=== PATIENT | male | born 1950 | race African-American/Black ===

== ENCOUNTER 2017-12-04 12:04 | Emergency (ER) | payer OTHER ==
[~2017-12-04 12:04] MED LIST: ACET325T PO; ALBUAER3 INH; ASPI81TA23 PO; BLOOD PRESSURE1 M20; METO1TAB42 PO; PHEN125S PO; PRAV20TA2 PO
[2017-12-04 12:38] VITALS: BP 100/65; PULSE 92; RESP 18; O2SAT 98
--- NOTE | 2017-12-04 12:51 | PD ---
HPI Chief Complaint: Altered Mental Status Time Seen by Provider: 12:35 Travel History International Travel<30 days: No Contact w/Intl Traveler<30days: No Traveled to known affect area: No History of Present Illness HPI This patient was brought in by paramedics. I believe he was sent in for altered mental status. However he cannot provide any useful history or review of systems. He has no idea why he is here. Does not know who called the paramedics. He denies headache or head injury or fever. He does have history of alcohol abuse but no longer drinks. Severity is moderate. Denies hallucinations. No alleviating factors. No exacerbating factors. Duration is unclear as patient is useless with history. PFSH Past Medical History Medical History: Denies Significant Hx Diminished Hearing: No Immunizations Current: No (UNOTAINABLE ) Past Surgical History Surgical History: No Previous Surgery Social History Alcohol Use: Yes (OCCASIONAL, UNABLE TO OBTAIN ) Tobacco Use: Yes (OCCASIONAL, ) Substance Use: Yes (MARIJUANA) Allergies-Medications (Allergen,Severity, Reaction): Coded Allergies: procaine (Unverified Allergy, Intermediate, 06/06/17) penicillin G (Unverified Allergy, Unknown, 06/06/17) Reported Meds & Prescriptions Reported Meds & Active Scripts Active Metoprolol Succinate ER 24 HR (Metoprolol Succinate) 25 Mg Tab 25 Mg PO DAILY Pravastatin 20 Mg Tab 20 Mg PO DAILY Phenytoin Liq (Phenytoin) 125 Mg/5 Ml Asuncion 150 Mg PO Q8HR Aspirin EC (Aspirin) 81 Mg Tabdr 81 Mg PO DAILY Proair Hfa 8.5 GM Inh (Albuterol Sulfate) 90 Mcg/Act Aer 2 Puff INH Q4-6H PRN 108 mcg/actuation Review of Systems General / Constitutional: No: Fever Eyes: No: Visual changes HENT: No: Headaches Cardiovascular: No: Chest Pain or Discomfort Respiratory: No: Shortness of Breath Gastrointestinal: No: Abdominal Pain Genitourinary: No: Dysuria Musculoskeletal: No: Pain Skin: No Rash Neurologic: Positive: Change in Mentation, No: Weakness Psychiatric: No: Depression Endocrine: No: Polydipsia Hematologic/Lymphatic: No: Easy Bruising Physical Exam Narrative GENERAL: Thin well-developed patient in no apparent distress. SKIN: Focused skin assessment reveals no rash and nodules. Skin is Warm and dry. HEAD: Atraumatic. Normocephalic. EYES: Pupils equal and round. No scleral icterus. No injection or drainage. ENT: No nasal bleeding or discharge. Mucous membranes pink and moist. NECK: Trachea midline. No JVD. CARDIOVASCULAR: Regular rate and rhythm. No murmur appreciated. RESPIRATORY: No accessory muscle use. Clear to auscultation. Breath sounds equal bilaterally. GASTROINTESTINAL: Abdomen soft, non-tender, nondistended. Hepatic and splenic margins not palpable. MUSCULOSKELETAL: No obvious deformities. No clubbing. No cyanosis. No edema. NEUROLOGICAL: Awake and alert. No obvious cranial nerve deficits. Motor grossly within normal limits. Normal mumbling and difficult to understand speech. PSYCHIATRIC: Appropriate mood and affect; insight and judgment poor . Data Data Last Documented VS Vital Signs Date Time Temp Pulse Resp B/P (MAP) Pulse Ox O2 Delivery O2 Flow Rate FiO2 12/04/17 15:39 85 18 118/68 (85) 96 Room Air Orders Orders Ammonia (12/04/17 12:46) Complete Blood Count With Diff (12/04/17 12:46) Comprehensive Metabolic Panel (12/04/17 12:46) Thyroid Stimulating Hormone (12/04/17 12:46) Urinalysis - C+S If Indicated (12/04/17 12:46) Ct Brain W/O Iv Contrast(Rout) (12/04/17 12:46) Blood Glucose (12/04/17 12:46) Ecg Monitoring (12/04/17 12:46) Iv Access Insert/Monitor (12/04/17 12:46) Cath For Specimen (12/04/17 12:46) Oximetry (12/04/17 12:46) Sodium Chloride 0.9% Flush (Ns Flush) (12/04/17 13:00) Drug Screen, Random Urine (12/04/17 12:46) Alcohol (Ethanol) (12/04/17 12:46) Sodium Chlor 0.9% 1000 Ml Inj (Ns 1000 M (12/04/17 13:00) Labs Laboratory Tests Test 12/04/17 13:01 12/04/17 13:29 12/04/17 13:52 White Blood Count 13.6 TH/MM3 Red Blood Count 4.36 MIL/MM3 Hemoglobin 13.4 GM/DL Hematocrit 39.0 % Mean Corpuscular Volume 89.6 FL Mean Corpuscular Hemoglobin 30.9 PG Mean Corpuscular Hemoglobin Concent 34.4 % Red Cell Distribution Width 13.3 % Platelet Count 255 TH/MM3 Mean Platelet Volume 7.2 FL Neutrophils (%) (Auto) 85.5 % Lymphocytes (%) (Auto) 5.3 % Monocytes (%) (Auto) 9.0 % Eosinophils (%) (Auto) 0.0 % Basophils (%) (Auto) 0.2 % Neutrophils # (Auto) 11.7 TH/MM3 Lymphocytes # (Auto) 0.7 TH/MM3 Monocytes # (Auto) 1.2 TH/MM3 Eosinophils # (Auto) 0.0 TH/MM3 Basophils # (Auto) 0.0 TH/MM3 CBC Comment DIFF FINAL Differential Comment Blood Urea Nitrogen 36 MG/DL Creatinine 1.18 MG/DL Random Glucose 118 MG/DL Total Protein 8.5 GM/DL Albumin 2.6 GM/DL Calcium Level 9.0 MG/DL Alkaline Phosphatase 107 U/L Aspartate Amino Transf (AST/SGOT) 88 U/L Alanine Aminotransferase (ALT/SGPT) 34 U/L Total Bilirubin 1.9 MG/DL Sodium Level 141 MEQ/L Potassium Level 3.9 MEQ/L Chloride Level 107 MEQ/L Carbon Dioxide Level 23.5 MEQ/L Anion Gap 11 MEQ/L Estimat Glomerular Filtration Rate 75 ML/MIN Thyroid Stimulating Hormone 3rd Gen 1.440 uIU/ML Ethyl Alcohol Level LESS THAN 3 MG/DL Ammonia LESS THAN 10 MCMOL/L Urine Color YELLOW Urine Turbidity CLEAR Urine pH 5.5 Urine Specific [place] 1.022 Urine Protein 30 mg/dL Urine Glucose (UA) NEG mg/dL Urine Ketones NEG mg/dL Urine Occult Blood NEG Urine Nitrite NEG Urine Bilirubin SMALL Urine Urobilinogen 8.0 MG/DL Urine Leukocyte Esterase NEG Urine RBC 1 /hpf Urine WBC 3 /hpf Urine Squamous Epithelial Cells <1 /hpf Microscopic Urinalysis Comment CATH-CULT NOT IND Urine Opiates Screen NEG Urine Barbiturates Screen NEG Urine Amphetamines Screen NEG Urine Benzodiazepines Screen NEG Urine Cocaine Screen NEG Urine Cannabinoids Screen NEG MDM Medical Decision Making Medical Screen Exam Complete: Yes Emergency Medical Condition: Yes Medical Record Reviewed: Yes Differential Diagnosis Intracranial hemorrhage, dementia, electrolyte abnormality, hypoglycemia Narrative Course I have reviewed the patient's electronic medical record. He's been here for both seizure and alcohol related problems 1250: I evaluated the patient. Circumstances regarding his visit here are unclear. Paramedics left a fairly sketchy report I've ordered an altered mental status workup I don't see an acute neurologic deficit here to suggest CVA 1400: I reviewed the workup Brain CT is negative. Labs are normal. Urine is clean, ammonia is normal as is TSH Get better report. The nurse spoke with staff at the facility. It turns out he is in a prison type setting. He has chronic poor mental status. He was sent here not for mental status change but essentially because of generalized weakness and malaise. He had a temp of 100.7. He did go to an urgent care was diagnosed with rest for a infection and is currently on antibiotics. 1540: Recheck reveals the patient is basically asymptomatic. His mental status is altered but unchanged from baseline. Staff members present and is going to take him back to the facility. Diagnosis Primary Impression: Generalized weakness Additional Impressions: Malaise and fatigue Fever Qualified Codes: R50.9 - Fever, unspecified Additional Instructions: The patient was advised to follow up with their physician and return if they worsen. Med/Other Pt SpecificInfo: Other Disposition: 01 DISCHARGE HOME Condition: Stable Axel Weeks MD Dec 04, 2017 12:51
[2017-12-04] MEDS ORDERED: SODIUM CHLORIDE 0.9% FLUSH 10 ML FLUSH IV FLUSH PRN (13:00)
[2017-12-04] MEDS ORDERED: SODIUM CHLOR 0.9% 1000 ML INJ 1,000 ML IV ONE (13:00)
--- NOTE | 2017-12-04 13:23 | RADRPT ---
EXAM DATE/TIME: 12/04/2017 13:09 [facility] COMPARISON: CT BRAIN W/O CONTRAST, August 12, 2016, 18:58. INDICATIONS : Weakness RADIATION DOSE: 38.64 CTDIvol (mGy) MEDICAL HISTORY : Seizures. Hypertension. Chronic obstructive pulmonary disease. SURGICAL HISTORY : None. ENCOUNTER: Initial ACUITY: 3 days PAIN SCALE: 0/10 LOCATION: cranial TECHNIQUE: Multiple contiguous axial images were obtained of the head. Using automated exposure control and adj ustment of the mA and/or kV according to patient size, radiation dose was kept as low as reasonably a chievable to obtain optimal diagnostic quality images. DICOM format image data is available electro nically for review and comparison. FINDINGS: CEREBRUM: The ventricles are normal for age. No evidence of midline shift, mass lesion, hemorrhage or acute in farction. No extra-axial fluid collections are seen. POSTERIOR FOSSA: The cerebellum and brainstem are intact. The 4th ventricle is midline. The cerebellopontine angle i s unremarkable. EXTRACRANIAL: The visualized portion of the orbits is intact. SKULL: The calvaria is intact. No evidence of skull fracture. CONCLUSION: 1. No acute intracranial abnormality. Carlos Beltrán MD on December 04, 2017 at 13:19 Board Certified Radiologist. This report was verified electronically.
[2017-12-04 13:30] LABS: AUTOMATED NEUTROPHIL # 11.7 TH/MM3 (1.8-7.7); BASOPHIL % 0.2 % (0.0-2.0); HEMOGLOBIN 13.4 GM/DL (13.0-17.0); LYMPH % 5.3 % (9.0-44.0); LYMPHOCYTE # 0.7 TH/MM3 (1.0-4.8); MEAN CELL VOLUME 89.6 FL (80.0-100.0); MEAN CORPUSCULAR HEMOGLOBIN 30.9 PG (27.0-34.0); MEAN CORPUSCULAR HGB CONC 34.4 % (32.0-36.0); MEAN PLATELET VOLUME 7.2 FL (7.0-11.0); MONOCYTE # 1.2 TH/MM3 (0-0.9); NEUT % 85.5 % (16.0-70.0); PLATELET COUNT 255 TH/MM3 (150-450); RED BLOOD COUNT 4.36 MIL/MM3 (4.50-5.90); RED CELL DISTRIBUTION WIDTH 13.3 % (11.6-17.2); WHITE BLOOD COUNT 13.6 TH/MM3 (4.0-11.0)
[2017-12-04 13:57] LABS: ALKALINE PHOSPHATASE 107 U/L (45-117); ALT (GPT) 34 U/L (12-78); TOTAL BILIRUBIN ADULT 1.9 MG/DL (0.2-1.0); TOTAL PROTEIN 8.5 GM/DL (6.4-8.2)
[2017-12-04 14:00] LABS: ALBUMIN 2.6 GM/DL (3.4-5.0); AST (GOT) 88 U/L (15-37); BICARBONATE 23.5 MEQ/L (21.0-32.0); BLOOD UREA NITROGEN 36 MG/DL (7-18); CHLORIDE 107 MEQ/L (98-107); CREATININE 1.18 MG/DL (0.60-1.30); GLOMERULAR FILTRATION RATE 75 ML/MIN (>89); GLUCOSE,RANDOM 118 MG/DL (74-106); SODIUM (NA) 141 MEQ/L (136-145)
[2017-12-04 14:24] LABS: BILIRUBIN, URINE SMALL (NEG); BLOOD, URINE NEG (NEG); GLUCOSE,URINE NEG (NEG); KETONE, URINE NEG (NEG); NITRITE,URINE NEG (NEG); PH, URINE 5.5 (5.0-8.5); SQUAMOUS EPITHELIAL CELL URINE <1 /hpf (0-5); URINE COLOR YELLOW (YELLW/STRAW); URINE LEUKOCYTE ESTERASE NEG (NEG)
[2017-12-04 15:39] VITALS: BP 118/68; PULSE 85; RESP 18; O2SAT 96
== END 2017-12-04 16:29 | disposition home or self-care (01) ==
LOC: NEPC 12:04
DX: R53.1 Weakness (principal); R53.83 Other fatigue; R50.9 Fever, unspecified; F12.90 Cannabis use, unspecified, uncomplicated; Z79.899 Other long term (current) drug therapy; Z72.0 Tobacco use
CPT/HCPCS: 70450; 80053; 80307; 81001; 82140; 84443; 85025; 99284; J7030

== ENCOUNTER 2017-12-10 14:36 | Inpatient (IN) | payer OTHER ==
[2017-12-10] VITALS (7 sets, daily range): BP systolic 107–122; BP diastolic 67–71; PULSE 86–104; RESP 18–22; TEMP 97.8–98.1; O2SAT 93–98
[~2017-12-10] VITALS: Ht 180.3 cm; Wt 63.3 kg
[~2017-12-10 14:36] MED LIST changes: -ACET325T PO; -BLOOD PRESSURE1 M20
[2017-12-10] MEDS: RESP: ALBUTEROL 2.5 MG/IPRATROPIUM 0.5 MG NEB (SCH) INH (15:14)
--- NOTE | 2017-12-10 15:55 | RADRPT ---
EXAM DATE/TIME: 12/10/2017 15:43 [facility] COMPARISON: No previous studies available for comparison. INDICATIONS : Shortness of breath, general weakness. MEDICAL HISTORY : Hypertension. Chronic obstructive pulmonary disease. Seizures SURGICAL HISTORY : None. ENCOUNTER: Initial ACUITY: 1 day PAIN SCORE: 0/10 LOCATION: Bilateral chest FINDINGS: PA and lateral views of the chest demonstrate bilateral infiltrates in a perihilar distribution. Ther e is a large bleb in the right lung apex as well as a triangular pleural based density. Lung bases ar e clear. No visible pneumothorax.. The cardiomediastinal contours are unremarkable. Marked sclerosis of the subchondral bone left humeral head likely infarct. CONCLUSION: Bilateral perihilar infiltrates and a wedge-shaped density in the right lung apex. Large bleb right u pper lobe. Amilcar Delgado MD on December 10, 2017 at 15:52 Board Certified Radiologist. This report was verified electronically.
[2017-12-10 15:57] LABS: AUTOMATED NEUTROPHIL # 19.6 TH/MM3 (1.8-7.7); BASOPHIL % 0.1 % (0.0-2.0); HEMATOCRIT 46.3 % (39.0-51.0); HEMOGLOBIN 15.6 GM/DL (13.0-17.0); LYMPHOCYTE # 0.6 TH/MM3 (1.0-4.8); MEAN CORPUSCULAR HGB CONC 33.7 % (32.0-36.0); MEAN PLATELET VOLUME 8.1 FL (7.0-11.0); MONO % 2.5 % (0.0-8.0); MONOCYTE # 0.5 TH/MM3 (0-0.9); NEUT % 94.4 % (16.0-70.0); PLATELET COUNT 190 TH/MM3 (150-450); WHITE BLOOD COUNT 20.8 TH/MM3 (4.0-11.0)
[2017-12-10 16:21] LABS: ALKALINE PHOSPHATASE 108 U/L (45-117); TOTAL BILIRUBIN ADULT 1.1 MG/DL (0.2-1.0); TOTAL PROTEIN 7.5 GM/DL (6.4-8.2)
[2017-12-10 16:22] LABS: ALBUMIN 1.8 GM/DL (3.4-5.0); ALT (GPT) 15 U/L (12-78); AST (GOT) 53 U/L (15-37); BICARBONATE 24.5 MEQ/L (21.0-32.0); BLOOD UREA NITROGEN 40 MG/DL (7-18); CALCIUM 8.5 MG/DL (8.5-10.1); CHLORIDE 115 MEQ/L (98-107); CREATININE 1.18 MG/DL (0.60-1.30); GLOMERULAR FILTRATION RATE 75 ML/MIN (>89); GLUCOSE,RANDOM 109 MG/DL (74-106); SODIUM (NA) 151 MEQ/L (136-145)
[2017-12-10 16:44] LABS: BANDS 15 % (0-6); LYMPHOCYTES 5 % (9-44); MONOCYTES 1 % (0-8); NEUTROPHIL # MANUAL DIFF 19.6 TH/MM3 (1.8-7.7); POLYS (SEG NEUTROPHILS) 79 % (16-70)
[2017-12-10] MEDS ORDERED: SODIUM CHLOR 0.9% 1000 ML INJ 1,000 ML IV ONE (16:45)
[2017-12-10] MEDS ORDERED: SODIUM CHLORIDE 0.9% FLUSH 10 ML FLUSH IV FLUSH PRN (17:15)
[2017-12-10] MEDS ORDERED: NALOXONE HCL 0.4 MG/ML AMP IV PUSH PRN (17:15)
[2017-12-10] MEDS ORDERED: ONDANSETRON HCL 4 MG/2 ML VIAL IVP PRN (17:15)
[2017-12-10] MEDS ORDERED: LACTULOSE SYRUP 20 GM/30 ML CUP PO PRN (17:15)
[2017-12-10] MEDS ORDERED: SENNOSIDES 8.6 MG TAB PO PRN (17:15)
[2017-12-10] MEDS ORDERED: BISACODYL 10 MG SUPP RECTAL PRN (17:15)
[2017-12-10] MEDS ORDERED: ACETAMINOPHEN 325 MG TAB PO PRN (17:15)
--- NOTE | 2017-12-10 17:23 | PD ---
HPI Chief Complaint: Respiratory Symptoms Time Seen by Provider: 14:51 Travel History International Travel<30 days: No Contact w/Intl Traveler<30days: No Traveled to known affect area: No History of Present Illness HPI 67-year-old male that presents to the ED for evaluation of respiratory symptoms. Per patient his been having cold-like symptoms for the past 2 weeks. Most of the history is obtained from ambulance as well as family as patient himself is not a good historian. Patient denies any urinary or bowel movement issues. Per family he's not been eating because he is having pain with swallowing. His been taking his medications and was recently seen in this hospital and diagnosed with pneumonia and started on doxycycline. Per patient does continue taking antibiotic. He was given some Solu-Medrol as well as albuterol by ambulance with some improvement of his O2 sats. Patient was having low O2 sats per ambulance today. His usually been okay. He has an inhaler at home. History of COPD. Denies any urinary or bowel movement issues. No chest pain or shortness of breath. Having a lot of productive cough. No history of HIV or immunosuppression but does have a history of hepatitis C. Allergy to penicillin and procaine PFSH Past Medical History COPD: Yes Diminished Hearing: No Immunizations Current: No (UNOTAINABLE ) ?: Not Social History Alcohol Use: Yes (OCCASIONAL, UNABLE TO OBTAIN ) Tobacco Use: Yes (OCCASIONAL, ) Substance Use: No Allergies-Medications (Allergen,Severity, Reaction): Coded Allergies: procaine (Unverified Allergy, Intermediate, 12/10/17) penicillin G (Unverified Allergy, Unknown, 12/10/17) Reported Meds & Prescriptions Reported Meds & Active Scripts Active Metoprolol Succinate ER 24 HR (Metoprolol Succinate) 25 Mg Tab 25 Mg PO DAILY Pravastatin 20 Mg Tab 20 Mg PO DAILY Phenytoin Liq (Phenytoin) 125 Mg/5 Ml Asuncion 150 Mg PO Q8HR Aspirin EC (Aspirin) 81 Mg Tabdr 81 Mg PO DAILY Proair Hfa 8.5 GM Inh (Albuterol Sulfate) 90 Mcg/Act Aer 2 Puff INH Q4-6H PRN 108 mcg/actuation Review of Systems Except as stated in HPI: all other systems reviewed are Neg Physical Exam Narrative GENERAL: SKIN: Warm and dry. HEAD: Atraumatic. Normocephalic. EYES: Pupils equal and round. No scleral icterus. No injection or drainage. ENT: No nasal bleeding or discharge. Mucous membranes pink and moist. Tongue is midline. No uvula deviation. Patient has what appears to be white exudates to the mouth and the tongue. They are removable. NECK: Trachea midline. No JVD. CARDIOVASCULAR: Regular rate and rhythm. No murmurs, S3, S4. RESPIRATORY: No accessory muscle use. Clear to auscultation. Breath sounds equal bilaterally. GASTROINTESTINAL: Abdomen soft, non-tender, nondistended. Hepatic and splenic margins not palpable. MUSCULOSKELETAL: Extremities without clubbing, cyanosis, or edema. No obvious deformities. Full range of motion of the upper and lower extremities bilaterally. 2+ pulses bilaterally. NEUROLOGICAL: Awake and alert. No obvious cranial nerve deficits. Motor grossly within normal limits. Five out of 5 muscle strength in the arms and legs. Normal speech. PSYCHIATRIC: Appropriate mood and affect; insight and judgment normal. Data Data Last Documented VS Vital Signs Date Time Temp Pulse Resp B/P (MAP) Pulse Ox O2 Delivery O2 Flow Rate FiO2 12/10/17 15:06 98.1 104 107/67 (80) 94 Room Air 12/10/17 15:03 22 Orders Orders Electrocardiogram (12/10/17 15:00) Arterial Blood Gas (Abg) (12/10/17 15:00) Complete Blood Count With Diff (12/10/17 15:00) Comprehensive Metabolic Panel (12/10/17 15:00) Chest, Pa & Lat (12/10/17 15:00) Ecg Monitoring (12/10/17 15:00) Iv Access Insert/Monitor (12/10/17 15:00) Oximetry (12/10/17 15:00) Oxygen Administration (12/10/17 15:00) Albuterol-Ipratropium Neb (Duoneb Neb) (12/10/17 15:00) Blood Culture (12/10/17 15:00) Ct Soft Tiss Neck W Iv Cont (12/10/17 ) Sodium Chlor 0.9% 1000 Ml Inj (Ns 1000 M (12/10/17 16:45) Admit Order (Ed Use Only) (12/10/17 17:12) Labs Laboratory Tests Test 12/10/17 13:30 12/10/17 15:10 White Blood Count 20.8 TH/MM3 Red Blood Count 5.20 MIL/MM3 Hemoglobin 15.6 GM/DL Hematocrit 46.3 % Mean Corpuscular Volume 89.0 FL Mean Corpuscular Hemoglobin 30.0 PG Mean Corpuscular Hemoglobin Concent 33.7 % Red Cell Distribution Width 14.0 % Platelet Count 190 TH/MM3 Mean Platelet Volume 8.1 FL Neutrophils (%) (Auto) 94.4 % Lymphocytes (%) (Auto) 3.0 % Monocytes (%) (Auto) 2.5 % Eosinophils (%) (Auto) 0.0 % Basophils (%) (Auto) 0.1 % Neutrophils # (Auto) 19.6 TH/MM3 Lymphocytes # (Auto) 0.6 TH/MM3 Monocytes # (Auto) 0.5 TH/MM3 Eosinophils # (Auto) 0.0 TH/MM3 Basophils # (Auto) 0.0 TH/MM3 CBC Comment AUTO DIFF Differential Total Cells Counted 100 Neutrophils % (Manual) 79 % Band Neutrophils % 15 % Lymphocytes % 5 % Monocytes % 1 % Neutrophils # (Manual) 19.6 TH/MM3 Differential Comment FINAL DIFF MANUAL Platelet Estimate NORMAL Platelet Morphology Comment NORMAL Red Cell Morphology Comment NORMAL Blood Urea Nitrogen 40 MG/DL Creatinine 1.18 MG/DL Random Glucose 109 MG/DL Total Protein 7.5 GM/DL Albumin 1.8 GM/DL Calcium Level 8.5 MG/DL Alkaline Phosphatase 108 U/L Aspartate Amino Transf (AST/SGOT) 53 U/L Alanine Aminotransferase (ALT/SGPT) 15 U/L Total Bilirubin 1.1 MG/DL Sodium Level 151 MEQ/L Potassium Level 4.2 MEQ/L Chloride Level 115 MEQ/L Carbon Dioxide Level 24.5 MEQ/L Anion Gap 12 MEQ/L Estimat Glomerular Filtration Rate 75 ML/MIN Blood Gas Puncture Site RT RADIAL Blood Gas Patient Temperature 98.6 Blood Gas HCO3 22 mmol/L Blood Gas Base Excess -1.2 mmol/L Blood Gas Oxygen Saturation 94 % Arterial Blood pH 7.47 Arterial Blood Partial Pressure CO2 30 mmHg Arterial Blood Partial Pressure O2 74 mmHG Arterial Blood Oxygen Content 20.4 Vol % Arterial Blood Carboxyhemoglobin 0.8 % Arterial Blood Methemoglobin 0.6 % Blood Gas Hemoglobin 15.5 G/DL Oxygen Delivery Device ROOM AIR Blood Gas Inspired Oxygen 21 % MDM Medical Decision Making Medical Screen Exam Complete: Yes Emergency Medical Condition: Yes Medical Record Reviewed: Yes Interpretation(s) CBC & BMP Diagram 12/10/17 13:30 Total Protein 7.5 #, Albumin 1.8 L, Calcium Level 8.5, Alkaline Phosphatase 108 , Aspartate Amino Transf (AST/SGOT) 53 H, Alanine Aminotransferase (ALT/SGPT) 15 , Total Bilirubin 1.1 H Last Impressions Chest X-Ray 12/10/17 1500 Signed Impressions: Service Date/Time: Sunday, December 10, 2017 15:43 - CONCLUSION: Bilateral perihilar infiltrates and a wedge-shaped density in the right lung apex. Large bleb right upper lobe. Amilcar Delgado MD Differential Diagnosis COPD exacerbation versus depression versus pneumonia versus failed out patient treatment Narrative Course 67-year-old male that presents to the ED for evaluation of cold-like symptoms and shortness of breath. Patient was properly examined and was found to have signs and symptoms consistent appears to be severe exacerbation with pneumonia. Fell outpatient treatment. Patient also appears to have what appears to be Trush in his mouth. He does have some swelling of the neck but this may be chronic for him. We'll do CT to rule out any sign of acute disease. Labs and imaging were ordered. Labs and imaging were consistent with pneumonia and infection. At this time accommodations for admission for further eval. Patient apparently agree with this. Case was discussed with Linette for hepatitis who agrees to admission to Dr. Gonzalez. Diagnosis Primary Impression: Pneumonia Qualified Codes: J18.9 - Pneumonia, unspecified organism Additional Impression: COPD (chronic obstructive pulmonary disease) Qualified Codes: J44.9 - Chronic obstructive pulmonary disease, unspecified Admitting Information Admitting Physician Requests: Admit Dayton Snider Dec 10, 2017 17:23
[2017-12-10] MEDS ORDERED: ENOXAPARIN SODIUM 30 MG/0.3 ML SYRINGE SQ SCH (18:00)
[2017-12-10] MEDS ORDERED: LEVOFLOXACIN 750 MG PREMIX INJ 150 ML IV SCH (18:00)
[2017-12-10] MEDS ORDERED: IOHEXOL 350 MG/ML 10 ML VIAL (for RAD DIAG) IVCONTRAST ONE (18:12)
[2017-12-10] MEDS ORDERED: Vancomycin Consult Pharmacy 1 EA OTHER SCH (18:15)
--- NOTE | 2017-12-10 18:42 | RADRPT ---
EXAM DATE/TIME: 12/10/2017 18:08 [facility] COMPARISON: No previous studies available for comparison. INDICATIONS : Neck pain and dysphasia. IV CONTRAST: 72 cc Omnipaque 350 (iohexol) IV RADIATION DOSE: 21.72 CTDIvol (mGy) MEDICAL HISTORY : Hypertension. Seizures. SURGICAL HISTORY : None. ENCOUNTER: Initial ACUITY: 1 day PAIN SCALE: 6/10 LOCATION: neck TECHNIQUE: Volumetric scanning of the neck was performed. Using automated exposure control and adjustment of th e mA and/or kV according to patient size, radiation dose was kept as low as reasonably achievable to obtain optimal diagnostic quality images. DICOM format image data is available electronically for r eview and comparison. FINDINGS: NASOPHARYNX: The nasopharyngeal airway has a normal configuration. No mucosal thickening or mass is seen. OROPHARYNX: The intrinsic muscles of the tongue are symmetric. The tonsillar pillars are intact. The prevertebr al soft tissues are not thickened. LARYNX: The supraglottic, glottic, and infraglottic structures are intact. PARAPHARYNGEAL: The parapharyngeal space is intact. SALIVARY GLANDS: The parotid and submandibular glands are intact. LYMPH NODES: No enlarged or necrotic-appearing nodes. THYROID: Homogeneous enhancement without evidence of nodule. BONES: There is a destructive lesion involving the first rib. There is a large cavitary area in the right arpita ng apex. Small lytic lesion left anterior half of L3 could be an additional metastatic lesion CONCLUSION: Destructive lesion of the right first rib with an adjacent large cavity in the right lung apex. Ques tionable lytic lesion in T3 on the left Amilcar Delgado MD on December 10, 2017 at 18:36 Board Certified Radiologist. This report was verified electronically.
--- NOTE | 2017-12-10 18:56 | HHI.HP ---
HPI Service [facility] Hospitalists Primary Care Physician [facility] Admission Diagnosis pneumonia, failed outpatient treatment, COPD Diagnoses: Chief Complaint: Progressive weakness Generalized malasie Facial droop Dysphagia Travel History International Travel<30 Days: No Contact w/Intl Traveler <30 Da: No Traveled to Known Affected Are: No Sepsis Criteria SIRS Criteria (2 or more): Heart rate over 90, RR > 20 or PaCO2 < 32, WBC > 18515, < 4000 or > 10% bands Sepsis Criteria (SIRS+source): Infect source susp/known Criteria Outcome: Meets sepsis criteria History of Present Illness This is a 67-year-old male with a past medical history significant for COPD with ongoing tobaccoism, history of alcohol abuse with acute respiratory failure requiring intubation, history of alcohol withdrawal seizures, hypertension and dyslipidemia who presents to [facility] ED with complaints of progressive weakness, left-sided facial droop, difficulty swallowing and generalized malaise. Patient is a poor historian as well as has significant slurred speech. Due to patient's difficulty speaking, his caregivers are at the bedside and assist in providing much of the history. Apparently, patient developed complaints of fevers, generalized malaise and not feeling well. He was seen at urgent care and diagnosed with pneumonia given a prescription for doxycycline. Despite being compliant with medication patient continued to decline with progressive weakness. He was sent by [facility] to our ED on the for altered mental status and had a CT of the head done which was negative for any acute intracranial abnormality and was discharged the same day. Patient was then seen by his primary care physician Dr. King and was given a steroid injection. Patient developed left-sided facial droop on Monday and began having difficulty swallowing with increased slurred speech over the course of the past 3 days. Patient denies any cough during this time. He denies any hemoptysis. Denies any shortness of breath or chest pain. He denies any vision changes, dizziness, lightheadedness, nausea, vomiting, focal weakness, abdominal pain, dysuria, hematuria, diarrhea or constipation. He does endorse recent weight loss. He has not taken any medication for the past 3 days due to difficulty swallowing. Review of Systems Except as stated in HPI: all other systems reviewed are Neg Past Family Social History Past Medical History COPD with ongoing tobacco use History of left lacunar basal ganglia infarct History of acute respiratory distress requiring intubation History of alcohol withdrawal seizures Hepatitis C Hypertension Dyslipidemia Past Surgical History Previous tracheostomy and PEG tube placement Reported Medications Metoprolol Succinate ER 24 HR (Metoprolol Succinate) 25 Mg Tab 25 Mg PO DAILY Pravastatin 20 Mg Tab 20 Mg PO DAILY Phenytoin Liq (Phenytoin) 125 Mg/5 Ml Asuncion 150 Mg PO Q8HR Aspirin EC (Aspirin) 81 Mg Tabdr 81 Mg PO DAILY Proair Hfa 8.5 GM Inh (Albuterol Sulfate) 90 Mcg/Act Aer 2 Puff INH Q4-6H PRN 108 mcg/actuation Allergies: Coded Allergies: procaine (Unverified Allergy, Intermediate, 12/10/17) penicillin G (Unverified Allergy, Unknown, 12/10/17) Active Ordered Medications Current Medications Medications (Trade) Dose Ordered Sig/Bridget Route Start Time Stop Time Status Last Admin (NS Flush) 2 ml UNSCH PRN IV FLUSH 12/10/17 17:15 (NS Flush) 2 ml BID IV FLUSH 12/10/17 21:00 (Tylenol) 650 mg Q4H PRN PO 12/10/17 17:15 (Zofran Inj) 4 mg Q6H PRN IVP 12/10/17 17:15 (Lovenox Inj) 30 mg Q24H SQ 12/10/17 18:00 (Narcan Inj) 0.4 mg UNSCH PRN IV PUSH 12/10/17 17:15 (Babs-Colace) 1 tab BID PO 12/10/17 21:00 (Senokot) 17.2 mg Q12H PRN PO 12/10/17 17:15 (Dulcolax Supp) 10 mg DAILY PRN RECTAL 12/10/17 17:15 (Lactulose Liq) 30 ml DAILY PRN PO 12/10/17 17:15 Sodium Chloride 1,000 ml @ 100 mls/hr Q10H IV 12/10/17 18:00 (Lactinex) 1 tab TID PO 12/10/17 18:00 (Mucinex Er) 600 mg BID PO 12/10/17 21:00 (Duoneb Neb) 1 ampule Q4HR NEB NEB 12/10/17 20:00 (Albuterol Neb) 2.5 mg Q2HR NEB PRN NEB 12/10/17 17:15 Levofloxacin/ Dextrose 150 ml @ 100 mls/hr Q24H IV 12/10/17 18:00 Family History Patient unsure of family medical history Social History He admits to tobacco use of 3 Black & Mild cigars daily. He has a history of alcohol abuse but has not drank in over 2 years. Denies any illicit drug use. Physical Exam Vital Signs Vital Signs Date Time Temp Pulse Resp B/P (MAP) Pulse Ox O2 Delivery O2 Flow Rate FiO2 12/10/17 15:06 98.1 104 107/67 (80) 94 Room Air 12/10/17 15:03 98.1 104 22 107/67 (80) 95 Physical Exam GENERAL: This is a thin, frail rather cachectic appearing -Mal[place]ian male patient, in no apparent distress. Awake and alert. Left sided facial droop noted. Slurred speech. SKIN: No rashes, ecchymoses or lesions. Cool and dry. HEAD: Atraumatic. Normocephalic. No temporal or scalp tenderness. EYES: Pupils equal round and reactive. Extraocular motions intact. No scleral icterus. No injection or drainage. ENT: Nose without bleeding or purulent drainage. (+)Oral thrush. Airway patent. (+)Copious amount of oral secretions. NECK: Trachea midline. No JVD or lymphadenopathy. Supple, nontender, no meningeal signs. CARDIOVASCULAR: Tachycardic without murmurs, gallops, or rubs. RESPIRATORY: Fair air entry. Crackles noted right base. GASTROINTESTINAL: Abdomen soft, non-tender, nondistended. No hepato-splenomegaly , or palpable masses. No guarding. MUSCULOSKELETAL: Extremities without clubbing, cyanosis, or edema. No joint tenderness, effusion, or edema noted. No calf tenderness. NEUROLOGICAL: Awake and alert. Cranial nerves II through XII grossly intact. Motor and sensory grossly within normal limits with slightly weakened mold capper helper strength bilaterally. Slurred speech. Laboratory Laboratory Tests Test 12/10/17 13:30 12/10/17 15:10 White Blood Count 20.8 Red Blood Count 5.20 Hemoglobin 15.6 Hematocrit 46.3 Mean Corpuscular Volume 89.0 Mean Corpuscular Hemoglobin 30.0 Mean Corpuscular Hemoglobin Concent 33.7 Red Cell Distribution Width 14.0 Platelet Count 190 Mean Platelet Volume 8.1 Neutrophils (%) (Auto) 94.4 Lymphocytes (%) (Auto) 3.0 Monocytes (%) (Auto) 2.5 Eosinophils (%) (Auto) 0.0 Basophils (%) (Auto) 0.1 Neutrophils # (Auto) 19.6 Lymphocytes # (Auto) 0.6 Monocytes # (Auto) 0.5 Eosinophils # (Auto) 0.0 Basophils # (Auto) 0.0 CBC Comment AUTO DIFF Differential Total Cells Counted 100 Neutrophils % (Manual) 79 Band Neutrophils % 15 Lymphocytes % 5 Monocytes % 1 Neutrophils # (Manual) 19.6 Differential Comment FINAL DIFF MANUAL Platelet Estimate NORMAL Platelet Morphology Comment NORMAL Red Cell Morphology Comment NORMAL Blood Urea Nitrogen 40 Creatinine 1.18 Random Glucose 109 Total Protein 7.5 Albumin 1.8 Calcium Level 8.5 Alkaline Phosphatase 108 Aspartate Amino Transf (AST/SGOT) 53 Alanine Aminotransferase (ALT/SGPT) 15 Total Bilirubin 1.1 Sodium Level 151 Potassium Level 4.2 Chloride Level 115 Carbon Dioxide Level 24.5 Anion Gap 12 Estimat Glomerular Filtration Rate 75 Blood Gas Puncture Site RT RADIAL Blood Gas Patient Temperature 98.6 Blood Gas HCO3 22 Blood Gas Base Excess -1.2 Blood Gas Oxygen Saturation 94 Arterial Blood pH 7.47 Arterial Blood Partial Pressure CO2 30 Arterial Blood Partial Pressure O2 74 Arterial Blood Oxygen Content 20.4 Arterial Blood Carboxyhemoglobin 0.8 Arterial Blood Methemoglobin 0.6 Blood Gas Hemoglobin 15.5 Oxygen Delivery Device ROOM AIR Blood Gas Inspired Oxygen 21 Date/Time Source Procedure Growth Status 12/10/17 13:30 Blood Peripheral Aerobic Blood Culture Pending Received 12/10/17 13:30 Blood Peripheral Anaerobic Blood Culture Pending Received Result Diagram: 12/10/17 1330 12/10/17 1330 Imaging Last Impressions Chest X-Ray 12/10/17 1500 Signed Impressions: Service Date/Time: Sunday, December 10, 2017 15:43 - CONCLUSION: Bilateral perihilar infiltrates and a wedge-shaped density in the right lung apex. Large bleb right upper lobe. MD Kati Bernabe VTE Risk Assessment Caprini VTE Risk Assessment: Mod/High Risk (score >= 2) Caprini Risk Assessment Model Point Value = 1 Point Value = 2 Point Value = 3 Point Value = 5 Age 41-60 Minor surgery BMI > 25 kg/m2 Swollen legs Varicose veins or History of unexplained or recurrent spontaneous Oral contraceptives or hormone replacement Sepsis (< 1 month) Serious lung disease, including pneumonia (< 1 month) Abnormal pulmonary function Acute myocardial infarction Congestive heart failure (< 1 month) History of inflammatory bowel disease Medical patient at bed rest Age 61-74 Arthroscopic surgery Major open surgery (> 45 min) Laparoscopic surgery (> 45 min) Malignancy Confined to bed (> 72 hours) Immobilizing plaster cast Central venous access Age >= 75 History of VTE Family history of VTE Factor V Leiden Prothrombin [id number] Lupus anticoagulant Anticardiolipin antibodies Elevated serum homocysteine Heparin-induced thrombocytopenia Other congenital or acquired thrombophilia Stroke (< 1 month) Elective arthroplasty Hip, pelvis, or leg fracture Acute spinal cord injury (< 1 month) Prophylaxis Regimen Total Risk Factor Score Risk Level Prophylaxis Regimen 0-1 Low Early ambulation 2 Moderate Order ONE of the following: *Sequential Compression Device (SCD) *Heparin 5000 units SQ BID 3-4 Higher Order ONE of the following medications: *Heparin 5000 units SQ TID *Enoxaparin/Lovenox 40 mg SQ daily (WT < 150 kg, CrCl > 30 mL/min) *Enoxaparin/Lovenox 30 mg SQ daily (WT < 150 kg, CrCl > 10-29 mL/min) *Enoxaparin/Lovenox 30 mg SQ BID (WT < 150 kg, CrCl > 30 mL/min) AND/OR *Sequential Compression Device (SCD) 5 or more Highest Order ONE of the following medications: *Heparin 5000 units SQ TID (Preferred with Epidurals) *Enoxaparin/Lovenox 40 mg SQ daily (WT < 150 kg, CrCl > 30 mL/min) *Enoxaparin/Lovenox 30 mg SQ daily (WT < 150 kg, CrCl > 10-29 mL/min) *Enoxaparin/Lovenox 30 mg SQ BID (WT < 150 kg, CrCl > 30 mL/min) AND *Sequential Compression Device (SCD) Assessment and Plan Assessment and Plan 67-year-old male with a past medical history significant for COPD with ongoing tobaccoism, history of alcohol abuse with acute respiratory failure requiring intubation, history of alcohol withdrawal seizures, hypertension and dyslipidemia who presents to [facility] ED with complaints of progressive weakness, left-sided facial droop, difficulty swallowing and generalized malaise. Sepsis with elevated white count of 20.8, RR 22, tachycardia with HR 104 and source of pneumonia, failed outpatient treatment -obtain lactic acid sepsis protocol -IVF -Monitor white count -Begin IV vancomycin and Flagyl due to concern for possible aspiration pneumonia -Continuous cardiac monitoring -Follow-up on blood culture results Pneumonia, failed outpatient treatment Hx of acute respiratory failure requiring intubation s/p tracheostomy History of alcohol abuse, sober for over 2 years Concern for aspiration pneumonia COPD with ongoing tobaccoism -Chest x-ray shows bilateral perihilar infiltrates and a wedge-shaped density in the right lung apex. Large bleb right upper lobe, images reviewed by me -Consult pulmonology, appreciate assistance -IV vancomycin and Flagyl -Scheduled DuoNebs -obtain sputum culture -Acapella and incentive spirometry -Supplemental oxygen to maintain O2 sats above 92%. Continue to monitor respiratory status -Discussed importance of smoking cessation Left sided facial droop, slurred speech, dysphagia Possible subacute CVA History of previous left lacunar basal ganglia infarct -Head CT obtained 12/04/2017 shows no acute intracranial abnormality, images reviewed by me -CT neck ordered by ED, pending -obtain MRI brain. Will hold off beginning ASA until MRI results and no bleed confirmed. -statin daily -Consult neurology, appreciate assistance -N.p.o. for now. Nursing bedside swallow evaluation followed by speech therapy swallow evaluation -Obtain 2D echocardiogram and carotid ultrasound study -Consult PT/OT/ST -fall and seizure precautions Nonobstructive coronary artery disease Hypertension -Hypotensive at present -Hold any home antihypertensives that may be on medication reconciliation once updated -Monitor BP and adjust treatment accordingly Hypernatremia Elevated BUN -secondary to dehydration/volume contractions -IVF with NS -monitor sodium level, repeat BMP in am Oral candidiasis -Nystatin s/s pending bedside swallow evaluation Hepatitis C, treatment hina -Mild transaminitis -Monitor LFTs -Avoid hepatotoxic agents DVT prophylaxisDVT prophylaxis -Lovenox Attestation Patient seen and examined with MARITZA Barillas. The exam, history, and the medical decision-making described in the above note were completed with the assistance of the dictating practitioner. I attest that I had a [id number] encounter with the patient on the same day, and personally performed all of the history, exam, or medical decision making. Discussed case with him thoroughly after seeing the patient, reviewed and agreed with the plan. Please see addendum in History, Physical examination and Plan. See below for any errata/ additional input: NEUROLOGICAL: Alert, awake and oriented x3. Remote, recent, immediate memory intact. Concentration, judgment and higher function WNL. No cranial deficits: Pupils equal round reactive to light and accommodation, no facial asymmetry, shoulder shrug strong and symmetric, gross hearing intact, tongue midline. Moves all 4 extremities, muscle strength testing 5 over 5 all 4 extremities. Pronator drift negative, digiti quinti minimi sign negative. No sensory deficits with touch sensation. Grossly negative cerebellar examination, negative for dysdiadochokinesia. Reflexes 2+ and symmetric both upper and lower extremities. Babinski downgoing, clonus deferred. Negative meningeal signs. Gait testing deferred Discussed Condition With Patient, ED Dr. Lisa Webster Physician Certification 2 Midnight Certification Type: Admission for Inpatient Services Order for Inpatient Services The services are ordered in accordance with Medicare regulations or non- Medicare payer requirements, as applicable. In the case of services not specified as inpatient-only, they are appropriately provided as inpatient services in accordance with the 2-midnight benchmark. Estimated LOS (days): 3 3 days is the estimated time the patient will need to remain in the hospital, assuming treatment plan goals are met and no additional complications. Post-Hospital Plan: Not yet determined Linette Worthington Dec 10, 2017 18:56 Amparo Gonzalez MD Dec 10, 2017 19:06
--- NOTE | 2017-12-10 19:06 | RADRPT ---
EXAM DATE/TIME: 12/10/2017 18:37 [facility] COMPARISON: US CAROTID ARTERIES, July 02, 2016, 16:03. INDICATIONS : Cerebrovascular accident. MEDICAL HISTORY : Hypertension. Chronic obstructive pulmonary disease. Seizures. Claustrophobia. Alcohol use. Tobacco use. SURGICAL HISTORY : None. ENCOUNTER: Initial ACUITY: 1 day PAIN SCORE: 3/10 LOCATION: Bilateral neck PEAK SYSTOLIC VELOCITIES (cm/sec): ICA/CCA RATIO: Right: 1.6 Left: 1.2 ICA: Right: 131.8 Left: 101.6 CCA: Right: 81.4 Left: 82.2 ECA: Right: 106.2 Left: 86.6 VERTEBRAL: Right: 43.9 antegrade Left: 28.7 antegrade Elevated flow velocities and ICA/CCA ratios have been found to correlate with increased degrees of vessel stenosis, calculated as percentage of diameter relative to a normal segment of distal ICA/CCA FINDINGS: RIGHT CAROTID: There is mild calcified plaque throughout the common carotid artery and mild to moderate calcified pl aque in the carotid bulb similar to the prior study. The waveforms are within normal limits. LEFT CAROTID: There is moderate calcified plaque in the carotid bulb, similar to the prior examination. The wavefo khurram are within normal limits. VERTEBRAL ARTERIES: Antegrade flow is seen in both vertebral arteries. MISCELLANEOUS: None. CONCLUSION: 1. Moderate atherosclerotic plaque within the carotid bulbs bilaterally, not significantly change in visual appearance since the prior study. Findings indicate less than 50 % stenosis in the left technical support intern al carotid artery and potentially between 50-69% stenosis in the right internal carotid artery.. 2. There is antegrade flow within both vertebral arteries. Raza Ashby MD on December 10, 2017 at 19:02 Board Certified Radiologist. This report was verified electronically.
[2017-12-10] MEDS: RESP: ALBUTEROL 2.5 MG/IPRATROPIUM 0.5 MG NEB (SCH) NEB ×2 (19:28→23:29)
--- NOTE | 2017-12-10 20:23 | RADRPT ---
EXAM DATE/TIME: 12/10/2017 19:42 [facility] COMPARISON: MRI BRAIN W/O CONTRAST, July 02, 2016, 21:50. INDICATIONS : Confusion. MEDICAL HISTORY : Diabetes mellitus type 2. Hepatitis C. SURGICAL HISTORY : None. ENCOUNTER: Initial ACUITY: 1 day PAIN SCORE: 0/10 LOCATION: cranial TECHNIQUE: Multiplanar, multisequence MRI of the brain was performed without contrast. FINDINGS: CEREBRUM: There is moderate generalized atrophy. Ventricles are normal in size given the degree of atrophy pres ent. No evidence of midline shift, mass lesion, hemorrhage or acute infarction. No extraaxial fluid collections are seen. The pituitary gland and suprasellar cistern are normal in configuration. WHITE MATTER: There is moderate severity periventricular white matter signal change. POSTERIOR FOSSA: The cerebellum and brainstem demonstrate no acute finding. The 4th ventricle is midline. The cerebel lopontine angle is unremarkable. The cerebellar tonsils are normal in position. DIFFUSION IMAGING: No focal areas of restricted diffusion are seen. No evidence of acute infarction. EXTRACRANIAL: The visualized portions of the orbits and paranasal sinuses are unremarkable. CONCLUSION: 1. No acute intracranial abnormality is identified. 2. Chronic changes include mild atrophy and chronic periventricular white matter changes characterist ic of chronic microvascular ischemia. Raza Ashby MD on December 10, 2017 at 20:18 Board Certified Radiologist. This report was verified electronically.
[2017-12-10] MEDS ORDERED: VANCOMYCIN INJ 1,500 MG in SODIUM CHLORID 0.9% 500 ML INJ 500 ML IV ONE (21:00)
[2017-12-10] MEDS: SODIUM CHLOR 0.9% 1000 ML INJ 1,000 ML IV SCH (21:32)
[2017-12-10] MEDS: metroNIDAZOLE 500 MG INJ 100 ML IV SCH (21:32)
[2017-12-10] MEDS: SODIUM CHLORIDE 0.9% FLUSH 10 ML FLUSH IV FLUSH SCH (21:33)
[2017-12-10] MEDS: guaiFENesin E.R. 600 MG TAB PO SCH (21:39)
[2017-12-10] MEDS: NYSTATIN SUSP 500,000 U/5 ML CUP SWISH-SWAL SCH (21:39)
[2017-12-10] MEDS: LACTOBACILLUS ACIDOPHILUS TAB PO SCH (21:39)
[2017-12-10] MEDS: DOCUSATE SODIUM 50 MG/SENNA 8.6 MG TAB PO SCH (21:39)
[2017-12-11] VITALS (8 sets, daily range): BP systolic 102–150; BP diastolic 63–81; PULSE 67–92; RESP 16–22; TEMP 97.5–98.8; O2SAT 92–98
[2017-12-11] MEDS: RESP: ALBUTEROL 2.5 MG/IPRATROPIUM 0.5 MG NEB (SCH) NEB ×5 (03:13→20:00)
[2017-12-11] MEDS: SODIUM CHLOR 0.9% 1000 ML INJ 1,000 ML IV SCH (04:00)
[2017-12-11] MEDS: metroNIDAZOLE 500 MG INJ 100 ML IV SCH ×3 (05:20→20:55)
[2017-12-11] MEDS: SODIUM CHLORIDE 0.9% FLUSH 10 ML FLUSH IV FLUSH SCH ×2 (09:00→20:57)
[2017-12-11] MEDS: NYSTATIN SUSP 500,000 U/5 ML CUP SWISH-SWAL SCH ×3 (09:00→18:00)
[2017-12-11] MEDS: DOCUSATE SODIUM 50 MG/SENNA 8.6 MG TAB PO SCH ×2 (09:00→20:19)
[2017-12-11] MEDS: LACTOBACILLUS ACIDOPHILUS TAB PO SCH ×3 (09:00→18:00)
[2017-12-11] MEDS: guaiFENesin E.R. 600 MG TAB PO SCH ×2 (09:00→20:19)
--- NOTE | 2017-12-11 10:08 | MB ---
cc: ELSA SAMPSON M.D. DATE OF CONSULTATION 12/11/2017 HISTORY OF PRESENT ILLNESS The patient is a 67-year-old seen in neurological consultation. He is unable to give me any history. The chart is reviewed. The patient came in with a history of some difficulty swallowing, history of slurring and some questionable facial weakness. PAST MEDICAL HISTORY 1. COPD. 2. Alcohol abuse, though apparently being sober for a couple of years. 3. History of alcohol withdrawal seizures. 4. History of respiratory failure requiring intubation and trach in the past. 5. History of hepatitis C. 6. Hypertension. 7. Hyperlipidemia. REVIEW OF SYSTEMS The patient has generalized weakness, malaise, and just not feeling well. Recently he was given antibiotics as an outpatient for pneumonia. MEDICATIONS Medications at home: 1. Metoprolol. 2. Pravastatin. 3. Phenytoin 150 mg every 8 hours. 4. Aspirin. NEUROLOGICAL EXAMINATION The patient is lethargic, mumbles some simple words, difficult to be comprehended, but follows simple commands. He was able to give me his approximate age. He was able to count fingers on the right and left. I do not see any obvious facial weakness. He has dry mucosa. He raises his arms and legs on commands, moving all four extremities with generalized weakness. Tongue seems midline. Pupils about the same size, reactive. Reflexes diminished, nearly absent throughout. Plantar responses he withdrew but probably flexor bilaterally. IMAGING The ancillary data so far includes an MRI brain showing no acute abnormality. Atrophy and microvascular disease noted. Carotid ultrasound showing moderate plaque bilaterally with less than 50% stenosis on the left and potentially 50-69% stenosis on the right ICA. CT neck is showing a destructive lesion on the right first rib and adjacent large cavity in the right lung apex, questionable lytic lesion in T3 on the left. ASSESSMENT Encephalopathy, dysarthric speech, dysphasia, large lung lesion; unclear if this is all an infectious process or neoplastic process. MRI brain is negative for acute process. There is some possible 50-69% the right internal carotid artery stenosis by ultrasound. PLAN/RECOMMENDATIONS The patient is being treated for sepsis. Evidently his current care is mostly medical and he is on a combination of vancomycin, metronidazole and subcu Lovenox 30 every day. I will monitor the neurological course and further evaluation and management will depend upon his clinical medical course and underlying final diagnosis of lung lesion, etc. I am not seeing any obvious suggestion of associated stroke component. Thank you for asking us to assist in his care. MD CARLA Madrid/BT /9:42 AM /9:57 AM
[2017-12-11 10:29] LABS: AUTOMATED NEUTROPHIL # 19.2 TH/MM3 (1.8-7.7); BASOPHIL % 0.1 % (0.0-2.0); HEMATOCRIT 41.2 % (39.0-51.0); HEMOGLOBIN 13.9 GM/DL (13.0-17.0); LYMPH % 3.2 % (9.0-44.0); LYMPHOCYTE # 0.7 TH/MM3 (1.0-4.8); MEAN CELL VOLUME 89.6 FL (80.0-100.0); MEAN CORPUSCULAR HEMOGLOBIN 30.2 PG (27.0-34.0); MEAN CORPUSCULAR HGB CONC 33.7 % (32.0-36.0); MEAN PLATELET VOLUME 8.3 FL (7.0-11.0); MONO % 2.7 % (0.0-8.0); MONOCYTE # 0.6 TH/MM3 (0-0.9); PLATELET COUNT 185 TH/MM3 (150-450); RED CELL DISTRIBUTION WIDTH 13.9 % (11.6-17.2); WHITE BLOOD COUNT 20.4 TH/MM3 (4.0-11.0)
[2017-12-11 10:39] LABS: LACTIC ACID SEPSIS PROTOCOL 2.5 mmol/L (0.4-2.0)
[2017-12-11 10:55] LABS: ALBUMIN 1.6 GM/DL (3.4-5.0); ALKALINE PHOSPHATASE 101 U/L (45-117); ALT (GPT) 14 U/L (12-78); AST (GOT) 45 U/L (15-37); BICARBONATE 24.7 MEQ/L (21.0-32.0); BLOOD UREA NITROGEN 42 MG/DL (7-18); CALCIUM 8.2 MG/DL (8.5-10.1); CHLORIDE 123 MEQ/L (98-107); CREATININE 1.06 MG/DL (0.60-1.30); GLOMERULAR FILTRATION RATE 85 ML/MIN (>89); GLUCOSE,RANDOM 173 MG/DL (74-106); TOTAL BILIRUBIN ADULT 0.9 MG/DL (0.2-1.0); TOTAL PROTEIN 6.8 GM/DL (6.4-8.2)
[2017-12-11 10:59] LABS: SODIUM (NA) 157 MEQ/L (136-145)
[2017-12-11] MEDS ORDERED: POTASSIUM CHLORIDE 20 MEQ CONTROLLED RELEASE TAB PO ONE (11:15)
[2017-12-11] MEDS ORDERED: POTASSIUM CHLOR 20 MEQ PREMIX 100 ML IV ONE (11:15)
[2017-12-11] MEDS: 1/2 NS + KCL 20 MEQ INJ 1,000 ML IV SCH ×2 (12:06→22:00)
[2017-12-11] MEDS: PANTOPRAZOLE SODIUM 40 MG VIAL IV PUSH SCH (13:05)
--- NOTE | 2017-12-11 14:56 | HHI.PR ---
Subjective Remarks Follow-up pneumonia. Patient difficult to understand because of slurred speech. States he is getting better. Denies history of tuberculosis or lung cancer but he is losing weight with anorexia. Currently n.p.o. secondary to dysphagia. Objective Vitals Vital Signs Date Time Temp Pulse Resp B/P (MAP) Pulse Ox O2 Delivery O2 Flow Rate FiO2 12/11/17 12:00 97.5 67 17 150/81 (104) 98 12/11/17 08:00 97.8 90 16 119/72 (88) 92 12/11/17 05:15 Nasal Cannula 2.00 12/11/17 04:30 97.8 88 18 113/69 (84) 94 12/11/17 00:02 98.8 80 18 102/66 (78) 94 12/10/17 23:55 96 12/10/17 23:55 86 12/10/17 23:29 94 12/10/17 21:00 97.8 95 20 113/69 (84) 96 12/10/17 19:30 93 21 12/10/17 18:26 96 18 122/71 (88) 98 2.00 12/10/17 18:24 96 Room Air 12/10/17 15:06 98.1 104 107/67 (80) 94 Room Air 12/10/17 15:03 98.1 104 22 107/67 (80) 95 I/O 12/10/17 12/10/17 12/10/17 12/11/17 12/11/17 12/11/17 07:00 15:00 23:00 07:00 15:00 23:00 Intake Total 234 ml Output Total 300 ml Balance -300 ml 234 ml Intake IV Total 234 ml Output Urine Total 300 ml # Voids 2 Result Diagram: 12/11/17 1006 12/11/17 1006 Imaging Last Impressions Chest X-Ray 12/10/17 1500 Signed Impressions: Service Date/Time: Sunday, December 10, 2017 15:43 - CONCLUSION: Bilateral perihilar infiltrates and a wedge-shaped density in the right lung apex. Large bleb right upper lobe. Amilcar Delgado MD Neck CT 12/10/17 0000 Signed Impressions: Service Date/Time: Sunday, December 10, 2017 18:08 - CONCLUSION: Destructive lesion of the right first rib with an adjacent large cavity in the right lung apex. Questionable lytic lesion in T3 on the left Amilcar Delgado MD Carotid Artery Ultrasound 12/10/17 0000 Signed Impressions: Service Date/Time: Sunday, December 10, 2017 18:37 - CONCLUSION: 1. Moderate atherosclerotic plaque within the carotid bulbs bilaterally, not significantly change in visual appearance since the prior study. Findings indicate less than 50 %% stenosis in the left internal carotid artery and potentially between 50-69%% stenosis in the right internal carotid artery.. 2. There is antegrade flow within both vertebral arteries. Raza Ashby MD Brain MRI 12/10/17 0000 Signed Impressions: Service Date/Time: Sunday, December 10, 2017 19:42 - CONCLUSION: 1. No acute intracranial abnormality is identified. 2. Chronic changes include mild atrophy and chronic periventricular white matter changes characteristic of chronic microvascular ischemia. Raza Ashby MD Objective Remarks GENERAL: This is a thin, frail rather cachectic appearing -Israeli male patient, in no apparent distress. Awake and alert. Slurred speech. SKIN: No rashes, ecchymoses or lesions. Cool and dry. CARDIOVASCULAR: Tachycardic without murmurs, gallops, or rubs. RESPIRATORY: Fair air entry. No wheezes GASTROINTESTINAL: Abdomen soft, non-tender, nondistended. No guarding. MUSCULOSKELETAL: Extremities without clubbing, cyanosis, or edema. No joint tenderness, effusion, or edema noted. No calf tenderness. NEUROLOGICAL: Awake and alert. Cranial nerves II through XII grossly intact. Motor and sensory grossly within normal limits with slightly weakened spice fumigator strength bilaterally. Slurred speech. A/P Problem List: (1) Pneumonia ICD Code: J18.9 - Pneumonia, unspecified organism Status: Acute Assessment and Plan 67-year-old male with a past medical history significant for COPD with ongoing tobaccoism, history of alcohol abuse with acute respiratory failure requiring intubation, history of alcohol withdrawal seizures, hypertension and dyslipidemia who presents to [facility] ED with complaints of progressive weakness, left-sided facial droop, difficulty swallowing and generalized malaise. Severe sepsis with elevated white count of 20.8, RR 22, tachycardia with HR 104 and source of pneumonia, failed outpatient treatment history of acute respiratory failure requiring intubation status post tracheostomy -IVF -Monitor white count -Continue IV vancomycin and Flagyl due to concern for possible aspiration pneumonia. Add Levaquin. Patient has gram-negative blaise bacteremia. Consult infectious disease -Continuous cardiac monitoring -Follow-up on blood culture results Right apical cavity with destruction of the first rib and possible lytic lesion on L3. Pulmonary has been consulted and requested CT of the chest. May need bronchoscopy and oncology consultation Seizure disorder with subtherapeutic Dilantin. Seizure precautions. Reload Dilantin with 1000 mg IV 1 and continue at 150 mg IV every 8H while currently n.p.o. repeat Dilantin level in the morning Hypernatremia and hypokalemia secondary to decreased oral intake but continue IV hydration. Will provide IV potassium supplementation. Monitor on telemetry Neurologic deficits likely worsened by sepsis. No acute findings on MRI status post neurology evaluation. History of CVA and peripheral vascular disease with right internal carotid stenosis, follow-up echocardiogram. Will need antiplatelet after bronchoscopy/biopsy. PT/OT and ST Dysphagia. Ct NPO f/U ST. IVF and dietitian consult. May need GI consultation. GI prophylaxis with IV Protonix Nonobstructive coronary artery disease Hypertension -stable -Hold any home antihypertensives that may be on medication reconciliation once updated -Monitor BP and adjust treatment accordingly Oral candidiasis -Nystatin s/s if tolerated Hepatitis C, treatment hina -Mild transaminitis -Monitor LFTs -Avoid hepatotoxic agents DVT prophylaxis -Lovenox Med rec verification requested Problem Qualifiers (1) Pneumonia: Qualified Codes: J18.9 - Pneumonia, unspecified organism Abran Lawrence MD Dec 11, 2017 14:56
[2017-12-11] MEDS: POTASSIUM CHLOR 10 MEQ PREMIX 100 ML IV SCH ×3 (16:03→22:23)
[2017-12-11] MEDS ORDERED: PHENYTOIN INJ 1,000 MG in SODIUM CHLORIDE 0.9% INJ 100 ML IV ONE (18:45)
[2017-12-11] MEDS: NYSTATIN SUSP 500,000 U/5 ML CUP SWISH-SPIT SCH ×2 (20:00→20:20)
[2017-12-11] MEDS: LEVOFLOXACIN 750 MG PREMIX INJ 150 ML IV SCH (20:55)
[2017-12-11] MEDS ORDERED: VANCOMYCIN INJ 1,250 MG in SODIUM CHLOR 0.9% 250 ML INJ 250 ML IV SCH (21:00)
--- NOTE | 2017-12-11 22:29 | RADRPT ---
EXAM DATE/TIME: 12/11/2017 19:59 [facility] COMPARISON: CHEST SINGLE AP, July 25, 2016, 8:39. CHEST EXPIRATION ONLY, July 12, 2016, 15:21. CHEST PA & LAT, December 10, 2017, 15:43. INDICATIONS : Pneumonia, evaluate for mass. RADIATION DOSE: 6.91 CTDIvol (mGy) MEDICAL HISTORY : Hypertension. Chronic obstructive pulmonary disease. Seizures. SURGICAL HISTORY : None. ENCOUNTER: Initial ACUITY: 1 day PAIN SCALE: 0/10 LOCATION: chest TECHNIQUE: Volumetric scanning of the chest was performed. Using automated exposure control and adjustment of t he mA and/or kV according to patient size, radiation dose was kept as low as reasonably achievable to obtain optimal diagnostic quality images. DICOM format image data is available electronically for r eview and comparison. Follow-up recommendations for detected pulmonary nodules are based at a minimum on nodule size and pa tient risk factors according to Fleischner Society Guidelines. FINDINGS: LUNGS: There is a 12 cm thick walled cavitary process in the lateral right upper lobe with surrounding retic ular infiltrate. A rounded cavitating process in the anterolateral left upper lobe is also present wh ich measures about 6 cm in size and a pleural based 2 cm focus with cavitation in a slightly higher l evel. Patchy areas of consolidative change are present in the lower lobes as well and in the middle l obe. PLEURAE: There is no pleural thickening or pleural effusion. MEDIASTINUM: The heart and great vessels demonstrate no acute abnormality. There is no mediastinal or hilar lymph adenopathy. Coronary calcifications. AXILLAE: Within normal limits. No lymphadenopathy. MUSCULOSKELETAL: Within normal limits for patient age. MISCELLANEOUS: Nearly 6 cm mass in the region of the left adrenal gland with areas of internal calcification. CONCLUSION: Cavitating infiltrates bilaterally. Large adrenal mass seen in the upper abdomen Raza Quevedo MD on December 11, 2017 at 22:21 Board Certified Radiologist. This report was verified electronically.
--- NOTE | 2017-12-11 23:07 | EKG ---
Date Performed: 12/10/2017 Time Performed: 15:20:33 PTAGE: 67 years EKG: SINUS TACHYCARDIA PROBABLE INFERIOR MYOCARDIAL INFARCTION ABNORMAL ECG PREVIOUS TRACING : 07/09/2016 02.58 DOCTOR: Tone Levine Interpretating Date/Time 12/11/2017 22:57:57
[2017-12-12] VITALS (27 sets, daily range): BP systolic 88–129; BP diastolic 47–77; PULSE 80–113; RESP 20–37; TEMP 97.3–99.8; O2SAT 89–95
[2017-12-12] MEDS: RESP: ALBUTEROL 2.5 MG/3 ML NEB (PRN) NEB (01:31)
[2017-12-12] MEDS: RESP: ALBUTEROL 2.5 MG/IPRATROPIUM 0.5 MG NEB (SCH) NEB ×7 (04:00→23:30)
[2017-12-12] MEDS: metroNIDAZOLE 500 MG INJ 100 ML IV SCH ×3 (04:16→22:18)
--- NOTE | 2017-12-12 05:58 | MB ---
cc: NANCY CRUZ M.D. DATE OF CONSULTATION 12/11/2017 REASON FOR CONSULTATION Lung mass. Underlying malignancy suspect. HISTORY OF PRESENT ILLNESS Mr. Fernandez is a 67-year-old -Tuval[place] male with known history of COPD, seizure disorder, alcohol and tobacco use. The patient has not been drinking for the last couple of years. However he does smoke. Smokes few cigars every day. He is admitted with fever, confusion, progressive weakness, weight loss. The patient is quite confused, does not relate an accurate history. PAST MEDICAL HISTORY 1. COPD. 2. Previous CVA. 3. Hepatitis C. 4. Hypertension. 5. Hyperlipidemia. 6. Previous tracheostomy which was subsequently removed. MEDICATIONS AT HOME 1. Pro-Air. 2. Aspirin. 3. Dilantin. 4. Pravastatin. 5. Metoprolol. ALLERGIES PROCAINE. PENICILLIN. FAMILY HISTORY Noncontributory. REVIEW OF SYSTEMS 12-point review of systems as per HPI and Past History, otherwise negative. PHYSICAL EXAMINATION VITAL SIGNS: On exam temperature 98, pulse 90, respirations 18, blood pressure 110/70. HEENT: Exam unremarkable. Eyes without icterus. NECK: Without adenopathy or thyroid enlargement. CHEST: Scattered rhonchi bilaterally. CARDIAC EXAM: PMI not appreciated. S1, S2 audible. A 1/6 ejection systolic murmur at the left sternal border. ABDOMEN: Lax. Bowel sounds audible. EXTREMITIES: No clubbing, cyanosis or edema. LABORATORY DATA White count 20,000, hemoglobin 15, hematocrit 46. Sodium 151, potassium 4.2, creatinine 1.1, BUN 40. Chest x-ray with bilateral perihilar infiltrates and right apical lung density, significance unclear. IMPRESSION 1. Right apical lung density, needs further evaluation. 2. COPD. 3. Sepsis. 4. Severe cachexia. 5. History of CVA and seizure disorder. 6. History of alcohol abuse. 7. Tobacco use. PLAN The patient will be maintained on oxygen therapy as needed, bronchodilators given, antibiotics for underlying infection. CT scan of the chest will be obtained to further identify the density within the right apex. I do thank you for asking me to partake in Mr. Fernandez' care. Sincerely, Nancy Cruz MD WWW/SANTINO /5:16 PM /5:36 AM
[2017-12-12] MEDS ORDERED: MORPHINE SULFATE 2 MG/ML INJ IV PUSH ONE (06:15)
[2017-12-12] MEDS ORDERED: CHLORHEXIDINE GLUCONATE 2 % 1 PACK (2 CLOTHS)(extra cloths) TOPICAL PRN (07:45)
[2017-12-12] MEDS ORDERED: fentaNYL CITRATE 250 MCG/5 ML AMP IV ONE (08:00)
[2017-12-12] MEDS ORDERED: ROCURONIUM INJ 50 MG/5 ML VIAL IV ONE (08:00)
[2017-12-12] MEDS: CHLORHEXIDINE 0.12% (ORAL KIT) 15 ML CUP MT SCH ×2 (08:00→20:00)
[2017-12-12] MEDS ORDERED: PROPOFOL 1000 MG/100 ML INJ 100 ML IV PRN (08:00)
[2017-12-12] MEDS ORDERED: fentaNYL DRIP 250 ML IV PRN ×4 (08:00→20:15)
[2017-12-12] MEDS ORDERED: ETOMIDATE 20 MG/10 ML VIAL IVP ONE (08:00)
[2017-12-12] MEDS ORDERED: ETOMIDATE 40 MG/20 ML VIAL ONE (08:03)
[2017-12-12] MEDS: DOCUSATE SODIUM 50 MG/SENNA 8.6 MG TAB PO SCH ×2 (09:00→22:17)
[2017-12-12] MEDS: guaiFENesin E.R. 600 MG TAB PO SCH ×2 (09:00→21:00)
[2017-12-12] MEDS: NYSTATIN SUSP 500,000 U/5 ML CUP SWISH-SPIT SCH ×4 (09:00→22:16)
[2017-12-12] MEDS: LACTOBACILLUS ACIDOPHILUS TAB PO SCH ×3 (09:00→18:00)
--- NOTE | 2017-12-12 09:12 | HHI.PR ---
Subjective Remarks NOW IN ICU CT , BILATERAL CAVITARY NODULES Objective Vital Signs Date Time Temp Pulse Resp B/P (MAP) Pulse Ox O2 Delivery O2 Flow Rate FiO2 12/12/17 08:50 89 50 12/12/17 07:42 95 60 12/12/17 07:11 98.9 107 37 129/77 (94) 93 12/12/17 07:03 93 Bi-Pap 60 12/12/17 07:03 93 60 12/12/17 07:03 93 BiPAP 60 12/12/17 06:30 97.3 105 25 121/77 (92) 92 12/12/17 04:20 Nasal Cannula 4.00 12/12/17 01:31 95 Nasal Cannula 2.00 12/12/17 00:40 97.6 80 20 120/65 (83) 95 12/11/17 22:37 Nasal Cannula 2.00 12/11/17 20:45 98.1 90 22 118/63 (81) 95 12/11/17 20:38 95 Nasal Cannula 2.00 12/11/17 20:30 91 12/11/17 16:47 97.8 92 16 122/68 (86) 95 12/11/17 12:00 97.5 67 17 150/81 (104) 98 12/11/17 10:15 Room Air I/O 12/11/17 12/11/17 12/11/17 12/12/17 12/12/17 12/12/17 07:00 15:00 23:00 07:00 15:00 23:00 Intake Total 334 ml 582 ml 350 ml Output Total 300 ml 700 ml 925 ml Balance -300 ml 334 ml -118 ml -575 ml Intake Oral 0 ml 0 ml IV Total 334 ml 582 ml 350 ml Output Urine Total 300 ml 700 ml 925 ml # Voids 2 1 # Bowel Movements 0 0 Result Diagram: 12/11/17 1006 12/11/17 1006 Objective Remarks GENERAL: ON VENT SUPPORT SKIN: Warm and dry. HEAD: Atraumatic. Normocephalic. EYES: Pupils equal and round. No scleral icterus. No injection or drainage. ENT: No nasal bleeding or discharge. Mucous membranes pink and moist. NECK: Trachea midline. No JVD. CARDIOVASCULAR: Regular rate and rhythm. RESPIRATORY: No accessory muscle use. Clear to auscultation. Breath sounds equal bilaterally. GASTROINTESTINAL: Abdomen soft, non-tender, nondistended. Hepatic and splenic margins not palpable. MUSCULOSKELETAL: Extremities without clubbing, cyanosis, or edema. No obvious deformities. NEUROLOGICAL: Awake and alert. No obvious cranial nerve deficits. Motor grossly within normal limits. Five out of 5 muscle strength in the arms and legs. Normal speech. PSYCHIATRIC: Appropriate mood and affect; insight and judgment normal. Assessment and Plan Assessment and Plan BILATERAL CAVITARY NODULES ADRENAL MASS PLAN VENT SUPPORT ANTIBX PER ID BX ADRENAL MASS BRONCHOSCOPY Nancy Cruz MD Dec 12, 2017 09:12
[2017-12-12] MEDS ORDERED: INFLUENZA VIRUS VACCINE (QUADRIVALENT) 0.5 ML SYR IM ONE (10:00)
[2017-12-12] MEDS ORDERED: PNEUMOCOCCAL POLYVALENT INJ 25 MCG/0.5 ML SYR IM ONE (10:00)
[2017-12-12] MEDS: 1/2 NS + KCL 20 MEQ INJ 1,000 ML IV SCH (10:00)
--- NOTE | 2017-12-12 10:40 | PD.CONS ---
History of Present Illness Service Infectious disease Consult Requested By Dr. Lawrence Reason for Consult With gram-negative bacteremia, and cavitary lung lesions Primary Care Physician [facility] Diagnoses: History of Present Illness Patient seen and examined. Records reviewed. History has been obtained from multiple records. Patient is a 67-year-old male, lives in a correction, brought into the hospital for evaluation of progressive weakness, generalized mildly, and he was noted to have some facial droop, and difficulty swallowing as well as slurred speech. He was in the ED on December 04 for evaluation of altered mental status. He had some low-grade temps at that time. He was no chest x-ray done. CT of the head was negative. And his urinalysis was unremarkable. Looks like prior to that he was seen in the urgent care clinic and was diagnosed to have pneumonia, and was given doxycycline. He was not improving. Patient apparently has had progressive generalized weakness and was not improving. He was noted to have some slurring of his speech, and having difficulty swallowing for about 3 days. There was mention of left-sided facial droop. He was brought into the emergency room, and his chest x-ray showed bilateral cavitary lung lesions, confirmed on the CT of the chest. MRI of the brain was negative. His WBC was 20,000. 2 blood cultures done in the emergency room is now reported as growing gram-negative ten. Patient has had prior chest x-ray back in 2016 and did not show any cavitary lesions at that time. It's unclear how long he's been in the correction. There was no prior history of tuberculosis. There is prior history of alcohol abuse, but looks like he apparently has not been drinking in the last year. There is also history of smoking. Patient was transferred to the ICU for progressive shortness of breath, and he is now intubated. He has not been febrile since admission to the hospital. On reviewing his old records , he had positive hepatitis C testing. I don't see any prior HIV testing. Infectious disease consultation has been requested to evaluate the patient with gram-negative sepsis, and multiple cavitary lung lesions. Review of Systems ROS Limitations: Clinical Condition, Intubated Past Family Social History Allergies: Coded Allergies: procaine (Unverified Allergy, Intermediate, 12/10/17) penicillin G (Unverified Allergy, Unknown, 12/10/17) Past Medical History COPD with ongoing tobacco use History of left lacunar basal ganglia infarct History of acute respiratory distress requiring intubation History of alcohol withdrawal seizures Hepatitis C Hypertension Dyslipidemia Past Surgical History Previous tracheostomy and PEG tube placement Active Ordered Medications Current Medications Medications (Trade) Dose Ordered Sig/Bridget Route Start Time Stop Time Status Last Admin (NS Flush) 2 ml UNSCH PRN IV FLUSH 12/10/17 17:15 (NS Flush) 2 ml BID IV FLUSH 12/10/17 21:00 12/11/17 20:57 (Tylenol) 650 mg Q4H PRN PO 12/10/17 17:15 (Zofran Inj) 4 mg Q6H PRN IVP 12/10/17 17:15 (Lovenox Inj) 30 mg Q24H SQ 12/10/17 18:00 Future Hold (Narcan Inj) 0.4 mg UNSCH PRN IV PUSH 12/10/17 17:15 (Babs-Colace) 1 tab BID PO 12/10/17 21:00 (Senokot) 17.2 mg Q12H PRN PO 12/10/17 17:15 (Dulcolax Supp) 10 mg DAILY PRN RECTAL 12/10/17 17:15 (Lactulose Liq) 30 ml DAILY PRN PO 12/10/17 17:15 (Lactinex) 1 tab TID PO 12/10/17 18:00 (Mucinex Er) 600 mg BID PO 12/10/17 21:00 (Duoneb Neb) 1 ampule Q4HR NEB NEB 12/10/17 20:00 12/12/17 07:42 (Albuterol Neb) 2.5 mg Q2HR NEB PRN NEB 12/10/17 17:15 12/12/17 01:31 Pharmacy Profile Note 0 ml @ 0 mls/hr UNSCH OTHER 12/10/17 18:15 Metronidazole 100 ml @ 100 mls/hr Q8H IV 12/10/17 20:00 12/12/17 04:16 Vancomycin HCl 1250 mg/Sodium Chloride 262.5 ml @ 250 mls/hr Q18H IV 12/11/17 21:00 12/11/17 20:55 Miscellaneous Information SPECIFIC LAB TO BE DRAWN:VANCOMYCIN TROUGH DATE TO... ONCE ONCE .XX 12/13/17 08:45 12/13/17 08:46 Potassium Chloride/Sodium Chloride 1,000 ml @ 100 mls/hr Q10H IV 12/11/17 12:00 12/11/17 12:06 (Protonix Inj) 40 mg Q24H IV PUSH 12/11/17 13:00 12/11/17 13:05 (Dilantin Inj) 150 mg Q8H IV PUSH 12/12/17 07:00 Levofloxacin/ Dextrose 150 ml @ 100 mls/hr Q24H IV 12/11/17 22:00 12/11/17 20:55 (Mycostatin Liq) 5 ml QID SWISH-SPIT 12/11/17 20:00 Miscellaneous Information Patient in critical care unit? Ass... Q361D .XX 12/12/17 08:00 (Chlorhexidine 2% Cloth) 3 pack DAILY@04 TOPICAL 12/13/17 04:00 12/17/17 04:01 (Chlorhexidine 2% Cloth) 3 pack UNSCH PRN TOPICAL 12/12/17 07:45 12/17/17 07:40 (Peridex 0.12% Liq) 15 ml BID@08,20 MT 12/12/17 08:00 Propofol 100 ml @ 0 mls/hr TITRATE PRN IV 12/12/17 08:00 Fentanyl Citrate 250 ml @ 0 mls/hr TITRATE PRN IV 12/12/17 08:00 Family History Unobtainable Social History He admits to tobacco use of 3 Black & Mild cigars daily. He has a history of alcohol abuse but has not drank in over 2 years. Denies any illicit drug use. Lives in a correction Physical Exam Vital Signs Vital Signs Date Time Temp Pulse Resp B/P (MAP) Pulse Ox O2 Delivery O2 Flow Rate FiO2 12/12/17 10:20 92 70 12/12/17 08:50 89 50 12/12/17 07:42 95 60 12/12/17 07:11 98.9 107 37 129/77 (94) 93 12/12/17 07:03 93 Bi-Pap 60 12/12/17 07:03 93 60 12/12/17 07:03 93 BiPAP 60 12/12/17 06:30 97.3 105 25 121/77 (92) 92 12/12/17 04:20 Nasal Cannula 4.00 12/12/17 01:31 95 Nasal Cannula 2.00 12/12/17 00:40 97.6 80 20 120/65 (83) 95 12/11/17 22:37 Nasal Cannula 2.00 12/11/17 20:45 98.1 90 22 118/63 (81) 95 12/11/17 20:38 95 Nasal Cannula 2.00 12/11/17 20:30 91 12/11/17 16:47 97.8 92 16 122/68 (86) 95 12/11/17 12:00 97.5 67 17 150/81 (104) 98 Physical Exam GENERAL: Patient is a thin, well-developed male, sedated on the vent, not in respiratory distress. SKIN: Warm and dry. No generalized rash, no ecchymoses and no evidence of embolic lesions. HEAD: Atraumatic. Normocephalic. EYES: Pale conjunctiva. No petechia or hemorrhage. Pupils equal, round and reactive to light. He has dirty sclera. No injection or drainage. EARS, NOSE AND THROAT: Nose without bleeding or purulent nasal discharge. Dry oral mucosa. Has a lot of dried secretions in his oropharynx. He is orally intubated. NECK: Trachea midline. Supple and not tender, no meningeal signs CARDIOVASCULAR: Regular rate and rhythm. No murmurs, rubs or gallops heard RESPIRATORY: Coarse breath sounds bilaterally, equal. Has scattered rhonchi. ABDOMEN: Soft, flat, not distended, no reaction to deep palpation. Bowel sounds present and normoactive. No organomegaly. EXTREMITIES: No clubbing, cyanosis, or edema. No joint effusion. Well perfused and warm. NEUROLOGICAL: Sedated, no Babinski, no ankle clonus PSYCHIATRIC: Unable to obtain LINE: No evidence of infection Laboratory Laboratory Tests Test 12/11/17 13:45 12/12/17 05:23 12/12/17 08:26 12/12/17 09:10 Lactic Acid Level 2.7 Magnesium Level 3.9 Blood Gas Puncture Site LT RADIAL LT RADIAL Blood Gas Patient Temperature 98.6 98.6 Blood Gas HCO3 19 21 Blood Gas Base Excess -4.6 -6.0 Blood Gas Oxygen Saturation 89 89 Arterial Blood pH 7.43 7.21 Arterial Blood Partial Pressure CO2 29 53 Arterial Blood Partial Pressure O2 63 78 Arterial Blood Oxygen Content 19.1 17.3 Arterial Blood Carboxyhemoglobin 0.7 0.0 Arterial Blood Methemoglobin 0.8 1.3 Blood Gas Hemoglobin 15.2 13.9 Oxygen Delivery Device NASAL CANNULA VENTILATOR Blood Gas Liter Flow 4 Blood Gas Ventilator Setting Blood Gas Inspired Oxygen 70 Date/Time Source Procedure Growth Status 12/10/17 13:30 Blood Peripheral Aerobic Blood Culture - Preliminary Gram Negative Ten Resulted 12/10/17 13:30 Anaerobic Blood Culture - Preliminary Gram Negative Ten Resulted 12/10/17 23:00 Urine Clean Catch Legionella Antigen - Final PRESUMPTIVE NEGATIVE FOR LEGIONELLA P... Complete Result Diagram: 12/11/17 1006 12/11/17 1006 Imaging RADIOLOGY STUDIES/FILMS REVIEWED Chest CT 12/11/17 0000 Signed Impressions: Service Date/Time: Monday, December 11, 2017 19:59 - CONCLUSION: Cavitating infiltrates bilaterally. Large adrenal mass seen in the upper abdomen Raza Quevedo MD Chest X-Ray 12/10/17 1500 Signed Impressions: Service Date/Time: Sunday, December 10, 2017 15:43 - CONCLUSION: Bilateral perihilar infiltrates and a wedge-shaped density in the right lung apex. Large bleb right upper lobe. Amilcar Delgado MD Neck CT 12/10/17 0000 Signed Impressions: Service Date/Time: Sunday, December 10, 2017 18:08 - CONCLUSION: Destructive lesion of the right first rib with an adjacent large cavity in the right lung apex. Questionable lytic lesion in T3 on the left Amilcar Delgado MD Carotid Artery Ultrasound 12/10/17 0000 Signed Impressions: Service Date/Time: Sunday, December 10, 2017 18:37 - CONCLUSION: 1. Moderate atherosclerotic plaque within the carotid bulbs bilaterally, not significantly change in visual appearance since the prior study. Findings indicate less than 50 %% stenosis in the left internal carotid artery and potentially between 50-69%% stenosis in the right internal carotid artery.. 2. There is antegrade flow within both vertebral arteries. Raza Ashby MD Brain MRI 12/10/17 0000 Signed Impressions: Service Date/Time: Sunday, December 10, 2017 19:42 - CONCLUSION: 1. No acute intracranial abnormality is identified. 2. Chronic changes include mild atrophy and chronic periventricular white matter changes characteristic of chronic microvascular ischemia. Raza W. Gianini, MD Assessment and Plan Assessment and Plan IMPRESSION Bilateral cavitary lung lesions, possibly infectious etiology - lives in a correction - ?underlying immunocompromised state - ?unusual pathogens Hx ETOH abuse, minimal use in last 2 years Hx tobacco use Cachexia RECOMMENDATION TB quantiferon Check cultures: routine, fungal and AFB Pulmonary evaluating patient HIV testing if we can get consent from family Azactam/Flagyl/Levaquin and Vanco for empiric Abx Follow C/S Monitor progress Further recommendations to follow once workup and cultures are available I will follow along with you Thank you for this consultation Hollie Ortega MD Dec 12, 2017 10:40
[2017-12-12] MEDS ORDERED: SODIUM CHLOR 0.9% 1000 ML INJ 1,000 ML IV ONE (11:45)
--- NOTE | 2017-12-12 11:47 | RADRPT ---
EXAM DATE/TIME: 12/12/2017 10:48 [facility] COMPARISON: CT THORAX W/O CONTRAST, December 11, 2017, 19:59. CHEST PA & LAT, December 10, 2017, 15:43. CHEST S GREG AP, July 25, 2016, 8:39. INDICATIONS : ETT placement. MEDICAL HISTORY : Seizures. Hypertension. Chronic obstructive pulmonary disease SURGICAL HISTORY : None. ENCOUNTER: Subsequent ACUITY: 2 weeks PAIN SCORE: Non-responsive. LOCATION: Bilateral chest FINDINGS: Endotracheal tube tip is 1.9 cm above the eric. A gastric tube tip is just below the level of the hemidiaphragm and the side port of the gastric tube is 7.8 cm above the hemidiaphragm. Stable appear ance to the large cavitary right upper lobe mass, smaller left upper lobe cavitary mass, and consolid ative opacities at the right apex and right lower lung. Both hemidiaphragms remain fairly well delin eated. The heart is normal size. CONCLUSION: 1. ET tube tip 2 cm above the eric. 2. The side port of the gastric tube projects in the distal esophagus and the gastric tube needs to b e advanced at least 8 cm. Markos Mcguire MD on December 12, 2017 at 11:42 Board Certified Radiologist. This report was verified electronically.
[2017-12-12] MEDS: AZTREONAM INJ 2,000 MG in SODIUM CHLORIDE 0.9% INJ 100 ML IV SCH ×2 (13:00→21:00)
[2017-12-12 13:02] LABS: AUTOMATED NEUTROPHIL # 11.3 TH/MM3 (1.8-7.7); EOSINOPHIL % 0.1 % (0.0-4.0); HEMATOCRIT 42.1 % (39.0-51.0); HEMOGLOBIN 13.8 GM/DL (13.0-17.0); LYMPH % 3.2 % (9.0-44.0); LYMPHOCYTE # 0.4 TH/MM3 (1.0-4.8); MEAN CELL VOLUME 91.1 FL (80.0-100.0); MEAN CORPUSCULAR HEMOGLOBIN 29.9 PG (27.0-34.0); MEAN CORPUSCULAR HGB CONC 32.8 % (32.0-36.0); MEAN PLATELET VOLUME 8.6 FL (7.0-11.0); MONOCYTE # 0.2 TH/MM3 (0-0.9); NEUT % 94.7 % (16.0-70.0); PLATELET COUNT 124 TH/MM3 (150-450); RED BLOOD COUNT 4.62 MIL/MM3 (4.50-5.90); RED CELL DISTRIBUTION WIDTH 14.8 % (11.6-17.2); WHITE BLOOD COUNT 11.9 TH/MM3 (4.0-11.0)
[2017-12-12 13:22] LABS: BICARBONATE 21.9 MEQ/L (21.0-32.0); CALCIUM 7.6 MG/DL (8.5-10.1); CREATININE 1.45 MG/DL (0.60-1.30); MAGNESIUM 3.5 MG/DL (1.5-2.5)
[2017-12-12 13:24] LABS: MYCOPLASMA PNEUMONIAE IGG Positive (Negative); MYCOPLASMA PNEUMONIAE IGM Negative (Negative)
[2017-12-12 13:25] LABS: BANDS 27 % (0-6); LYMPHOCYTES 9 % (9-44); MONOCYTES 1 % (0-8); NEUTROPHIL # MANUAL DIFF 10.7 TH/MM3 (1.8-7.7); POLYS (SEG NEUTROPHILS) 63 % (16-70)
[2017-12-12 13:27] LABS: BURR CELLS 1+ (NORMAL)
[2017-12-12] MEDS: PHENYTOIN INJ 100 MG/2 ML VIAL IV PUSH SCH ×3 (13:39→22:17)
[2017-12-12] MEDS: SODIUM CHLORIDE 0.9% FLUSH 10 ML FLUSH IV FLUSH SCH ×2 (13:40→22:17)
[2017-12-12] MEDS: PANTOPRAZOLE SODIUM 40 MG VIAL IV PUSH SCH (13:45)
--- NOTE | 2017-12-12 16:10 | HHI.PR ---
Subjective Remarks F/U PNA. Currently intubated. Events noted dw [employer] earlier, patient developed respiratory distress refused BiPAP. Discussed with critical care medicine who intubated the patient. Also discussed with infectious disease. Objective Vitals Vital Signs Date Time Temp Pulse Resp B/P (MAP) Pulse Ox O2 Delivery O2 Flow Rate FiO2 12/12/17 14:00 96 12/12/17 13:00 101 12/12/17 12:00 101 12/12/17 12:00 98.4 101 25 89/58 (68) 93 12/12/17 11:00 101 12/12/17 10:20 92 70 12/12/17 10:00 102 12/12/17 09:25 109 20 92 12/12/17 09:00 113 12/12/17 08:50 89 50 12/12/17 08:00 98.0 106 36 111/63 (79) 95 12/12/17 08:00 Bi-Pap 60 12/12/17 08:00 106 12/12/17 07:42 95 60 12/12/17 07:11 98.9 107 37 129/77 (94) 93 12/12/17 07:03 93 Bi-Pap 60 12/12/17 07:03 93 60 12/12/17 07:03 93 BiPAP 60 12/12/17 07:00 109 12/12/17 06:30 97.3 105 25 121/77 (92) 92 12/12/17 04:20 Nasal Cannula 4.00 12/12/17 01:31 95 Nasal Cannula 2.00 12/12/17 00:40 97.6 80 20 120/65 (83) 95 12/11/17 22:37 Nasal Cannula 2.00 12/11/17 20:45 98.1 90 22 118/63 (81) 95 12/11/17 20:38 95 Nasal Cannula 2.00 12/11/17 20:30 91 12/11/17 16:47 97.8 92 16 122/68 (86) 95 I/O 12/11/17 12/11/17 12/11/17 12/12/17 12/12/17 12/12/17 07:00 15:00 23:00 07:00 15:00 23:00 Intake Total 334 ml 582 ml 350 ml Output Total 300 ml 700 ml 925 ml Balance -300 ml 334 ml -118 ml -575 ml Intake Oral 0 ml 0 ml IV Total 334 ml 582 ml 350 ml Output Urine Total 300 ml 700 ml 925 ml # Voids 2 1 # Bowel Movements 0 0 Result Diagram: 12/12/17 1235 12/12/17 1235 Imaging Last Impressions Chest X-Ray 12/12/17 0000 Signed Impressions: Service Date/Time: Tuesday, December 12, 2017 10:48 - CONCLUSION: 1. ET tube tip 2 cm above the eric. 2. The side port of the gastric tube projects in the distal esophagus and the gastric tube needs to be advanced at least 8 cm. Markos Mcguire MD Chest CT 12/11/17 0000 Signed Impressions: Service Date/Time: Monday, December 11, 2017 19:59 - CONCLUSION: Cavitating infiltrates bilaterally. Large adrenal mass seen in the upper abdomen Raza Quevedo MD Neck CT 12/10/17 0000 Signed Impressions: Service Date/Time: Sunday, December 10, 2017 18:08 - CONCLUSION: Destructive lesion of the right first rib with an adjacent large cavity in the right lung apex. Questionable lytic lesion in T3 on the left Amilcar Delgado MD Carotid Artery Ultrasound 12/10/17 0000 Signed Impressions: Service Date/Time: Sunday, December 10, 2017 18:37 - CONCLUSION: 1. Moderate atherosclerotic plaque within the carotid bulbs bilaterally, not significantly change in visual appearance since the prior study. Findings indicate less than 50 %% stenosis in the left internal carotid artery and potentially between 50-69%% stenosis in the right internal carotid artery.. 2. There is antegrade flow within both vertebral arteries. Raza Ashby MD Brain MRI 12/10/17 0000 Signed Impressions: Service Date/Time: Sunday, December 10, 2017 19:42 - CONCLUSION: 1. No acute intracranial abnormality is identified. 2. Chronic changes include mild atrophy and chronic periventricular white matter changes characteristic of chronic microvascular ischemia. Raza Ashby MD Objective Remarks GENERAL: This is a thin, frail rather cachectic appearing -[place] male patient who is intubated SKIN: No rashes, ecchymoses or lesions. Cool and dry. CARDIOVASCULAR: Tachycardic without murmurs, gallops, or rubs. RESPIRATORY: Fair air entry. No wheezes GASTROINTESTINAL: Abdomen soft, non-tender, nondistended. No guarding. MUSCULOSKELETAL: Extremities without clubbing, cyanosis, or edema. No joint tenderness, effusion, or edema noted. No calf tenderness. NEUROLOGICAL: Sedated Procedures Intubation A/P Problem List: (1) Pneumonia ICD Code: J18.9 - Pneumonia, unspecified organism Status: Acute Assessment and Plan 67-year-old male with a past medical history significant for COPD with ongoing tobaccoism, history of alcohol abuse with acute respiratory failure requiring intubation, history of alcohol withdrawal seizures, hypertension and dyslipidemia who presents to [facility] ED with complaints of progressive weakness, left-sided facial droop, difficulty swallowing and generalized malaise. Septic shock with bilateral cavitary lung lesions/pneumonia, failed outpatient treatment history of acute respiratory failure requiring intubation status post tracheostomy -IVF -Monitor white count -Continue broad-spectrum antibiotics with IV vancomycin, Levaquin and Flagyl. Aztreonam has been added by infectious disease. Patient has gram- negative blaise bacteremia. -Follow-up on blood culture results and TB screening Right apical cavity with destruction of the first rib and possible lytic lesion on L3. May need bronchoscopy and oncology consultation. Patient also has large adrenal mass will need biopsy Acute respiratory failure secondary to above. Status post intubation. Further management by critical care medicine Seizure disorder with subtherapeutic Dilantin. Seizure precautions. Status post Dilantin reloading continue at 150 mg IV every 8H while currently n.p.o. repeat Dilantin level therapeutic MICHELLE with hypernatremia and hypokalemia secondary to decreased oral intake/ dehydration/sepsis. Will continue IV hydration. Fluid bolus. Monitor on telemetry Neurologic deficits likely worsened by sepsis. No acute findings on MRI status post neurology evaluation. History of CVA and peripheral vascular disease with right internal carotid stenosis, follow-up echocardiogram. Will need antiplatelet after bronchoscopy/biopsy. PT/OT and ST Dysphagia. Ct NPO f/U ST. IVF and dietitian consult. Recommends tube feeding with Jevity 1.5-60 cc an hour with free water 250 mL every 6 hours per may need GI consultation. GI prophylaxis with IV Protonix Nonobstructive coronary artery disease Hypertension -stable -Hold any home antihypertensives that may be on medication reconciliation once updated -Monitor BP and adjust treatment accordingly Oral candidiasis -Nystatin s/s if tolerated Hepatitis C, treatment hina -Mild transaminitis -Monitor LFTs -Avoid hepatotoxic agents DVT prophylaxis -Lovenox on hold may need bronchoscopy Med rec verification requested Problem Qualifiers (1) Pneumonia: Qualified Codes: J18.9 - Pneumonia, unspecified organism Abran Lawrence MD Dec 12, 2017 16:10
[2017-12-12] MEDS: NORMOSOL R INJ 1,000 ML IV SCH ×2 (16:20→19:46)
--- NOTE | 2017-12-12 16:57 | PD.CONS ---
[facility] Service Critical Care Medicine Consult Requested By Dr. Lawrence Reason for Consult Acute respiratory failure, sepsis Primary Care Physician [facility] History of Present Illness History of Present Illness This is a 67-year-old male with a past medical history significant for COPD with ongoing tobaccoism, history of alcohol abuse with acute respiratory failure requiring intubation, history of alcohol withdrawal seizures, hypertension and dyslipidemia who presents to [facility] ED with complaints of progressive weakness, left-sided facial droop, difficulty swallowing and generalized malaise. Patient is a poor historian as well as has significant slurred speech. Due to patient's difficulty speaking, his caregivers are at the bedside and assist in providing much of the history. Apparently, patient developed complaints of fevers, generalized malaise and not feeling well. He was seen at urgent care and diagnosed with pneumonia given a prescription for doxycycline. Despite being compliant with medication patient continued to decline with progressive weakness. He was sent by [facility] to our ED on the for altered mental status and had a CT of the head done which was negative for any acute intracranial abnormality and was discharged the same day. Patient was then seen by his primary care physician Dr. King and was given a steroid injection. Patient developed left-sided facial droop on Monday and began having difficulty swallowing with increased slurred speech over the course of the past 3 days. Patient denies any cough during this time. He denies any hemoptysis. Denies any shortness of breath or chest pain. On admission he complained of weight loss however denied any vision changes, dizziness, lightheadedness, nausea, vomiting, focal weakness, abdominal pain, dysuria, hematuria, diarrhea or constipation. Patient was admitted by hospitalist service. He was transferred to ICU for respiratory distress yesterday and this morning would not keep his BiPAP on with worsening tachypnea and dyspnea. His blood cultures from admission grew out gram-negative rods. CT chest done last night revealed bilateral cavitary lesions with infiltrates as well as Lydick lesion involving right first rib as well as L3 and a large left adrenal mass. Due to worsening respiratory distress critical care was consulted by Dr. Kirk. I evaluated the patient on being notified of the consult. At that time he was extremely tachypneic breathing in the 40s despite BiPAP and was encephalopathic however was arousable and responsive to commands. Patient was emergently intubated and placed on mechanical ventilation for worsening respiratory failure. History was obtained by reviewing records and discussion with Dr. Lawrence and nursing staff. Review of Systems Except as stated in HPI: all other systems reviewed are Neg PFSH Past Family Social History Past Medical History COPD with ongoing tobacco use History of left lacunar basal ganglia infarct History of acute respiratory distress requiring intubation History of alcohol withdrawal seizures Hepatitis C Hypertension Dyslipidemia Past Surgical History Previous tracheostomy and PEG tube placement Reported Medications Metoprolol Succinate ER 24 HR (Metoprolol Succinate) 25 Mg Tab 25 Mg PO DAILY Pravastatin 20 Mg Tab 20 Mg PO DAILY Phenytoin Liq (Phenytoin) 125 Mg/5 Ml Asuncion 150 Mg PO Q8HR Aspirin EC (Aspirin) 81 Mg Tabdr 81 Mg PO DAILY Proair Hfa 8.5 GM Inh (Albuterol Sulfate) 90 Mcg/Act Aer 2 Puff INH Q4-6H PRN 108 mcg/actuation Allergies: Coded Allergies: procaine (Unverified Allergy, Intermediate, 12/10/17) penicillin G (Unverified Allergy, Unknown, 12/10/17) Active Ordered Medications Current Medications Albuterol/ Ipratropium (Duoneb Neb) 1 ampule Q15M INH Last administered on 12/10at 15:14; Start 12/10/17 at 15:00; Stop 12/10/17 at 15:16; Status DC Sodium Chloride 1,000 ml @ 999 mls/hr BOLUS ONCE IV ; Start 12/10/17 at 16:45 ; Stop 12/10/17 at 17:45; Status DC Sodium Chloride (NS Flush) 2 ml UNSCH PRN IV FLUSH FLUSH AFTER USING IV ACCESS ; Start 12/10/17 at 17:15 Sodium Chloride (NS Flush) 2 ml BID IV FLUSH Last administered on 12/12/17at 13: 40; Start 12/10/17 at 21:00 Acetaminophen (Tylenol) 650 mg Q4H PRN PO TEMP > 100.4; Start 12/10/17 at 17:15 Ondansetron HCl (Zofran Inj) 4 mg Q6H PRN IVP NAUSEA OR VOMITING; Start at 17:15 Enoxaparin Sodium (Lovenox Inj) 30 mg Q24H SQ ; Start 12/10/17 at 18:00; Status Future Hold Naloxone HCl (Narcan Inj) 0.4 mg UNSCH PRN IV PUSH SEE LABEL COMMENTS; Start at 17:15 Senna/Docusate Sodium (Babs-Colace) 1 tab BID PO ; Start 12/10/17 at 21:00 Sennosides (Senokot) 17.2 mg Q12H PRN PO Moderate constipation; Start 12/10/17 at 17:15 Bisacodyl (Dulcolax Supp) 10 mg DAILY PRN RECTAL SEVERE CONSITIPATION; Start at 17:15 Lactulose (Lactulose Liq) 30 ml DAILY PRN PO SEVERE CONSITIPATION; Start at 17:15 Sodium Chloride 1,000 ml @ 100 mls/hr Q10H IV Last administered on 12/10/17at 21:32; Start 12/10/17 at 18:00; Stop 12/11/17 at 11:07; Status DC Lactobacillus Acidophilus (Lactinex) 1 tab TID PO ; Start 12/10/17 at 18:00 Guaifenesin (Mucinex Er) 600 mg BID PO ; Start 12/10/17 at 21:00 Albuterol/ Ipratropium (Duoneb Neb) 1 ampule Q4HR NEB NEB Last administered on 12/12/17at 14:20; Start 12/10/17 at 20:00 Albuterol Sulfate (Albuterol Neb) 2.5 mg Q2HR NEB PRN NEB sob, wheezing, cough Last administered on 12/12/17at 01:31; Start 12/10/17 at 17:15 Levofloxacin/ Dextrose 150 ml @ 100 mls/hr Q24H IV ; Start 12/10/17 at 18:00; Stop 12/10/17 at 18:18; Status DC Nystatin (Mycostatin Liq) 5 ml QID SWISH-SWAL ; Start 12/10/17 at 18:00; Stop 12/11/17 at 18:58; Status DC Iohexol (Omnipaque 350 Inj) 72 ml STK-MED ONCE IVCONTRAST Last administered on 12/10/17at 18:12; Start 12/10/17 at 18:12; Stop 12/10/17 at 18:13; Status DC Vancomycin HCl 1500 mg/Sodium Chloride 515 ml @ 257.5 mls/ hr ONCE ONCE IV Last administered on 12/11/17at 00:56; Start 12/10/17 at 21:00; Stop 12/10/17 at 22:59; Status DC Pharmacy Profile Note 0 ml @ 0 mls/hr UNSCH OTHER ; Start 12/10/17 at 18:15 Metronidazole 100 ml @ 100 mls/hr Q8H IV Last administered on 12/12/17at 13:45 ; Start 12/10/17 at 20:00 Pneumococcal Polyvalent Vaccine (Pneumovax-23 Inj) 25 mcg ONCE ONCE IM ; Start 12/12/17 at 10:00; Stop 12/12/17 at 10:01; Status DC Influenza Virus Vaccine (Flu (Quadrivalent) Vaccine Inj) 0.5 ml ONCE ONCE IM ; Start 12/12/17 at 10:00; Stop 12/12/17 at 10:01; Status DC Vancomycin HCl 1250 mg/Sodium Chloride 262.5 ml @ 250 mls/hr Q18H IV Last administered on 12/11/17at 20:55; Start 12/11/17 at 21:00 Miscellaneous Information SPECIFIC LAB TO BE DRAWN:VANCOMYCIN TROUGH DATE TO... ONCE ONCE .XX ; Start 12/13/17 at 08:45; Stop 12/13/17 at 08:46 Potassium Chloride/Sodium Chloride 1,000 ml @ 100 mls/hr Q10H IV Last administered on 12/12/17at 10:00; Start 12/11/17 at 12:00 Potassium Chloride 100 ml @ 50 mls/hr ONCE ONCE IV Last administered on at 13:01; Start 12/11/17 at 11:15; Stop 12/11/17 at 13:14; Status DC Potassium Chloride (KCl) 60 meq ONCE ONCE PO ; Start 12/11/17 at 11:15; Stop at 12:23; Status DC Potassium Chloride 100 ml @ 100 mls/hr Q1H IV Last administered on 12/11/17at 22:23; Start 12/11/17 at 13:00; Stop 12/11/17 at 15:59; Status DC Pantoprazole Sodium (Protonix Inj) 40 mg Q24H IV PUSH Last administered on 12/12at 13:45; Start 12/11/17 at 13:00 Phenytoin Sodium (Dilantin Inj) 150 mg Q8H IV PUSH Last administered on at 13:39; Start 12/12/17 at 07:00 Phenytoin Sodium 1000 mg/Sodium Chloride 120 ml @ 288 mls/hr ONCE ONCE IV Last administered on 12/11/17at 22:02; Start 12/11/17 at 18:45; Stop 12/11/17 at 19:09; Status DC Levofloxacin/ Dextrose 150 ml @ 100 mls/hr Q24H IV Last administered on at 20:55; Start 12/11/17 at 22:00 Nystatin (Mycostatin Liq) 5 ml QID SWISH-SPIT ; Start 12/11/17 at 20:00 Morphine Sulfate (Morphine Inj) 2 mg ONCE ONCE IV PUSH Last administered on at 06:13; Start 12/12/17 at 06:15; Stop 12/12/17 at 06:16; Status DC Miscellaneous Information Patient in critical care unit? Ass... Q361D .XX ; Start 12/12/17 at 08:00 Chlorhexidine Gluconate (Chlorhexidine 2% Cloth) 3 pack DAILY@04 TOPICAL ; Start 12/13/17 at 04:00; Stop 12/17/17 at 04:01 Chlorhexidine Gluconate (Chlorhexidine 2% Cloth) 3 pack UNSCH PRN TOPICAL HYGIENIC CARE; Start 12/12/17 at 07:45; Stop 12/17/17 at 07:40 Etomidate (Amidate Inj) 25 mg ONCE ONCE IVP Last administered on 12/12/17at 08: 00; Start 12/12/17 at 08:00; Stop 12/12/17 at 08:36; Status DC Fentanyl Citrate (fentaNYL INJ) 200 mcg ONCE ONCE IV ; Start 12/12/17 at 08:00 ; Stop 12/12/17 at 08:37; Status DC Rocuronium [place] (Zemuron Inj) 50 mg ONCE ONCE IV Last administered on at 13:36; Start 12/12/17 at 08:00; Stop 12/12/17 at 08:38; Status DC Fentanyl Citrate (fentaNYL INJ) 100 mcg STK-MED ONCE .ROUTE Last administered on 12/12/17at 13:37; Start 12/12/17 at 08:02; Stop 12/12/17 at 08:03; Status DC Etomidate (Amidate Inj) 40 mg STK-MED ONCE .ROUTE ; Start 12/12/17 at 08:03; Stop 12/12/17 at 08:04; Status DC Chlorhexidine Gluconate (Peridex 0.12% Liq) 15 ml BID@08,20 MT Last administered on 12/12/17at 08:00; Start 12/12/17 at 08:00 Propofol 100 ml @ 0 mls/hr TITRATE PRN IV SEDATION; Start 12/12/17 at 08:00 Fentanyl Citrate 250 ml @ 0 mls/hr TITRATE PRN IV SEDATION; Start 12/12/17 at 08:00 Fentanyl Citrate (fentaNYL INJ) 100 mcg STK-MED ONCE .ROUTE Last administered on 12/12/17at 08:17; Start 12/12/17 at 08:17; Stop 12/12/17 at 08:18; Status DC Aztreonam 2000 mg/ Sodium Chloride 100 ml @ 200 mls/hr Q8H IV ; Start 12/12/17 at 13:00 Sodium Chloride 1,000 ml @ 0 mls/hr BOLUS ONCE IV Last administered on at 09:00; Start 12/12/17 at 11:45; Stop 12/12/17 at 11:46; Status DC Parenteral Electrolytes 1,000 ml @ 125 mls/hr Q8H IV ; Start 12/12/17 at 16:00 Water (Free Water) 200 ml Q4HR G-TUBE ; Start 12/12/17 at 20:00; Status UNV Family History Patient unsure of family medical history Social History He admits to tobacco use of 3 Black & Mild cigars daily. He has a history of alcohol abuse but has not drank in over 2 years. Denies any illicit drug use. Past Family Social History Allergies: Coded Allergies: procaine (Unverified Allergy, Intermediate, 12/10/17) penicillin G (Unverified Allergy, Unknown, 12/10/17) Physical Exam Vital Signs Vital Signs Date Time Temp Pulse Resp B/P (MAP) Pulse Ox O2 Delivery O2 Flow Rate FiO2 12/12/17 14:00 96 12/12/17 13:00 101 12/12/17 12:00 101 12/12/17 12:00 98.4 101 25 89/58 (68) 93 12/12/17 11:00 101 12/12/17 10:20 92 70 12/12/17 10:00 102 12/12/17 09:25 109 20 92 12/12/17 09:00 113 12/12/17 08:50 89 50 12/12/17 08:00 98.0 106 36 111/63 (79) 95 12/12/17 08:00 Bi-Pap 60 12/12/17 08:00 106 12/12/17 07:42 95 60 12/12/17 07:11 98.9 107 37 129/77 (94) 93 12/12/17 07:03 93 Bi-Pap 60 12/12/17 07:03 93 60 12/12/17 07:03 93 BiPAP 60 12/12/17 07:00 109 12/12/17 06:30 97.3 105 25 121/77 (92) 92 12/12/17 04:20 Nasal Cannula 4.00 12/12/17 01:31 95 Nasal Cannula 2.00 12/12/17 00:40 97.6 80 20 120/65 (83) 95 12/11/17 22:37 Nasal Cannula 2.00 12/11/17 20:45 98.1 90 22 118/63 (81) 95 12/11/17 20:38 95 Nasal Cannula 2.00 12/11/17 20:30 91 12/11/17 16:47 97.8 92 16 122/68 (86) 95 Physical Exam HEENT/ Neuro: Sedated, orally intubated, Pallor present, no icterus, tongue/ mucosa dry Neck: No JVD Chest/Pulm: on mech vent, good air entry bilaterally, no wheezing or crackles. Scattered rhonchi bilaterally. CVS: S1-S2 regular, no murmur GI/abdomen: soft, nontender, bowel sounds sluggish Extremities: warm bilaterally, no edema Laboratory Laboratory Tests Test 12/12/17 05:23 12/12/17 08:26 12/12/17 09:10 12/12/17 11:15 Blood Gas Puncture Site LT RADIAL LT RADIAL Blood Gas Patient Temperature 98.6 98.6 Blood Gas HCO3 19 21 Blood Gas Base Excess -4.6 -6.0 Blood Gas Oxygen Saturation 89 89 Arterial Blood pH 7.43 7.21 Arterial Blood Partial Pressure CO2 29 53 Arterial Blood Partial Pressure O2 63 78 Arterial Blood Oxygen Content 19.1 17.3 Arterial Blood Carboxyhemoglobin 0.7 0.0 Arterial Blood Methemoglobin 0.8 1.3 Blood Gas Hemoglobin 15.2 13.9 Oxygen Delivery Device NASAL CANNULA VENTILATOR Blood Gas Liter Flow 4 Nasal Screen MRSA (PCR) MRSA NOT DETECTED Blood Gas Ventilator Setting Blood Gas Inspired Oxygen 70 M. tuberculosis Complex DNA (PCR) NOT DETECTED Test 12/12/17 12:22 12/12/17 12:33 12/12/17 12:35 Phenytoin (Dilantin) Level 11.5 HIV (1&2) Antibody NEGATIVE Lactic Acid Level 4.6 White Blood Count 11.9 Red Blood Count 4.62 Hemoglobin 13.8 Hematocrit 42.1 Mean Corpuscular Volume 91.1 Mean Corpuscular Hemoglobin 29.9 Mean Corpuscular Hemoglobin Concent 32.8 Red Cell Distribution Width 14.8 Platelet Count 124 Mean Platelet Volume 8.6 Neutrophils (%) (Auto) 94.7 Lymphocytes (%) (Auto) 3.2 Monocytes (%) (Auto) 2.0 Eosinophils (%) (Auto) 0.1 Basophils (%) (Auto) 0.0 Neutrophils # (Auto) 11.3 Lymphocytes # (Auto) 0.4 Monocytes # (Auto) 0.2 Eosinophils # (Auto) 0.0 Basophils # (Auto) 0.0 CBC Comment AUTO DIFF Differential Total Cells Counted 100 Neutrophils % (Manual) 63 Band Neutrophils % 27 Lymphocytes % 9 Monocytes % 1 Neutrophils # (Manual) 10.7 Differential Comment FINAL DIFF MANUAL Platelet Estimate LOW Platelet Morphology Comment NORMAL Akbar Cells 1+ Blood Urea Nitrogen 43 Creatinine 1.45 Random Glucose 225 Calcium Level 7.6 Magnesium Level 3.5 Sodium Level 162 Potassium Level 4.7 Chloride Level 130 Carbon Dioxide Level 21.9 Anion Gap 10 Estimat Glomerular Filtration Rate 59 Date/Time Source Procedure Growth Status 12/12/17 12:35 Blood Peripheral Aerobic Blood Culture Pending Received 12/12/17 12:35 Blood Peripheral Anaerobic Blood Culture Pending Received 12/12/17 11:15 Sputum Endotracheal Fungal Smear - Final NO FUNGAL ELEMENTS SEEN. Resulted 12/12/17 11:15 Sputum Endotracheal Fungal Culture Pending Resulted 12/10/17 23:00 Urine Clean Catch Legionella Antigen - Final PRESUMPTIVE NEGATIVE FOR LEGIONELLA P... Complete Result Diagram: 12/12/17 1235 12/12/17 1235 Assessment and Plan Assessment and Plan Gram-negative bacteremia Hypotension Severe sepsis COPD Bilateral pneumonia Bilateral cavitary lesions Possible malignancy Left adrenal mass Lytic lesion at L3 and right first rib Plan: Neuro: Sedation with propofol, daily sedation vacation, follow neuro status. Cardiovascular: Fluid boluses, IV hydration. Levophed for pressor support if needed Pulmonary: Intubated and placed on mechanical ventilation. Being followed by pulmonary. Bronchoscopy being planned to obtain specimens to further evaluate cavitary lesions. Vent bundle, bronchodilators as needed. GI/liver: Nothing by mouth for now. We'll initiate tube feeds after OG tube placement Renal/: IV hydration. Hypernatremia noted. Continue Normosol for IV hydration. Multiple fluid boluses needed for hypotension. Free water via OG tube. Strict intake output, monitor and replete electro lites, follow BUN creatinine. ID: Follow-up cultures. Blood cultures with gram-negative rods. Antibiotics per ID. Heme: Follow CBC and coags Endocrine: SSI for glycemic control if needed. Prophylaxis: Protonic/SCDs/subcutaneous Lovenox Condition critical Time spent on critical care excluding procedures 60 minutes Merlin Jiménez MD Dec 12, 2017 16:57
[2017-12-12] MEDS ORDERED: NORMOSOL R INJ 1,000 ML IV ONE (17:15)
[2017-12-12] MEDS ORDERED: NOREPINEPHRINE-DEXTROSE DRIP 250 ML IV PRN (18:45)
[2017-12-12] MEDS ORDERED: TERBUTALINE INJ 1 MG/ML AMP SQ PRN (18:45)
[2017-12-12] MEDS ORDERED: NORMOSOL R INJ 1,000 ML IV SCH (18:45)
[2017-12-12] MEDS ORDERED: GLUCAGON 1 MG/ML VIAL IM/SQ PRN (18:45)
[2017-12-12] MEDS ORDERED: DEXTROSE 50% IN WATER 50 ML VIAL(D50) IV PRN (18:45)
[2017-12-12] MEDS ORDERED: LIDOCAINE HCL 1% 50 ML VIAL ONE (19:18)
--- NOTE | 2017-12-12 19:19 | RADRPT ---
EXAM DATE/TIME: 12/12/2017 18:54 [place] COMPARISON: CHEST SINGLE AP, December 12, 2017, 10:48. INDICATIONS : Central line placement and evaluate for pneumothorax. MEDICAL HISTORY : Seizures. Hypertension. Chronic obstructive pulmonary disease SURGICAL HISTORY : None. ENCOUNTER: Subsequent ACUITY: 4 - 6 days PAIN SCORE: Non-responsive. LOCATION: Bilateral chest FINDINGS: Stable ETT. NGT now in the stomach. Right IJ central line with tip in the cavoatrial junction. Redemo nstration of large right upper lobe cavitary mass, or hand consolidative changes in the left midlung and right lower lobe and right apex. There is a small 1.3 cm subpulmonic pneumothorax. Remainder of e xam is unchanged. CONCLUSION: 1. Small 1.3 cm right subpulmonic pneumothorax. 2. Right IJ central line with tip in the cavoatrial junction. 3. NGT in the stomach. 4. Remainder the exam is unchanged Arpan Lauren MD on December 12, 2017 at 19:15 Board Certified Radiologist. This report was verified electronically.
[2017-12-12] MEDS: [UNRECOGNIZED DRUG - REMARK] G-TUBE SCH (19:45)
--- NOTE | 2017-12-12 19:45 | PD.PROCEDR ---
Central Line Procedure REASON FOR PROCEDURE Central venous access PROCEDURE PERFORMED Central line placement: Right internal jugular vein with ultrasound guidance CONSENT Informed consent for procedure was obtained from family and documented on chart. ANESTHESIA Local injection of 1% Lidocaine DESCRIPTION OF THE PROCEDURE The patient was placed in supine, mild Trendelenburg position. The area was exposed and cleansed with ChloraPrep, times two. Large sterile drape was used to cover the patient, with the site exposed, under sterile conditions including cap, face mask, sterile gown, and sterile gloves. On single attempt, the introducer needle was inserted with negative pressure in syringe and venous flash was obtained. The guide wire was then advanced without any restriction and the needle was removed. The dilator was used without any complications. Using Seldinger technique a 20 cm antimicrobial coated triple lumen catheter was advanced over the guide wire to a depth of 18 centimeters. The guide wire was removed. All ports were aspirated with dark venous blood return and flushed easily with sterile saline. All ports were capped. Antibiotic disc was placed around central line at puncture site. The central line was secured to the skin with a statlock. The area was bandaged with sterile occlusive dressing. RADIOLOGICAL DATA Ultrasound guidance was used to locate the right internal jugular vein COMPLICATIONS: Failed attempt at right subclavian vein cannulation earlier. Post procedure chest x-ray did reveal a right basal pneumothorax with minimal separation. ESTIMATED BLOOD LOSS: Less than 1 cc. Merlin Jiménez MD Dec 12, 2017 19:45
--- NOTE | 2017-12-12 19:47 | PD.PROCEDR ---
Procedure Note Procedure Procedure: Right-sided chest tube placement Indication: Right pneumothorax Preoperative diagnosis: Right pneumothorax Postoperative diagnosis: Same Informed consent not obtained as this was an emergent procedure as patient hypotensive with a pneumothorax Anesthesia: 1% lidocaine for local infiltration anesthesia Procedure: After sterile prepping and draping using 1% lidocaine for local infiltration anesthesia, horizontal skin incision was made in the region of the fourth intercostal space in the anterior axillary line with a #11 scalpel blade followed by blunt dissection. Using Marjan clamp left pleural cavity was entered with gush of air heard on entry. 20 Indonesian chest tube was passed into the left pleural cavity to the 18 cm rosa maria. Chest tube was connected to Pleur- evac which were then connected to -20 cm of water pressure with underwater seal. Chest tube was secured with 3-0 silk sutures following which vaseline gauze was was applied to the insertion site followed by dressing. Postprocedure chest x-ray was ordered and was pending at the time of this dictation. It will be reviewed when available. Patient tolerated the procedure well with no immediate complications noted. Merlin Jiménez MD Dec 12, 2017 19:47
--- NOTE | 2017-12-12 19:48 | PD.PROCEDR ---
Procedure Note Procedure Procedure: Endotracheal intubation Preop diagnosis: Severe sepsis, bacteremia, acute respiratory failure, COPD, bilateral pneumonia, bilateral cavitary lesions Postop diagnosis: Same Sedation used: Etomidate 20 mg, fentanyl 200 mcg, rocuronium 50 mg IV Procedure: Patient was preoxygenated with 100% oxygen via Ambu bag with bag mask ventilation, following induction of sedation and neuromuscular blockade, direct laryngoscopy was performed using a Mac 4 blade with good visualization of vocal cords. An 8 Afghan ET tube was passed through the vocal cords under direct visualization up to the 23 centimeter rosa maria and after inflating cuff of ET tube, correct placement was confirmed using bagging with good color change on CO2 detector, 5 point auscultation and chest rise with ventilation. Patient was connected to mechanical ventilation. Patient tolerated the procedure well with no immediate complications noted. Postprocedure chest x-ray was ordered. Merlin Jiménez MD Dec 12, 2017 19:48
[2017-12-12] MEDS: INSULIN ASPART SUPPLEMENTAL SCALE SQ SCH (20:00)
[2017-12-12] MEDS ORDERED: RASS Change Order XX ONE (20:15)
[2017-12-12] MEDS ORDERED: fentaNYL 2,500 MCG/NS 250 ML IV PRN (20:30)
--- NOTE | 2017-12-12 20:33 | RADRPT ---
EXAM DATE/TIME: 12/12/2017 19:49 [facility] COMPARISON: CHEST SINGLE AP, December 12, 2017, 18:54. INDICATIONS : Post right chest tube placement. MEDICAL HISTORY : Seizures. Hypertension. Chronic obstructive pulmonary disease SURGICAL HISTORY : None. ENCOUNTER: Subsequent ACUITY: 4 - 6 days PAIN SCORE: Non-responsive. LOCATION: Bilateral chest FINDINGS: Stable ETT, right IJ central line and NGT. Interval placement of right-sided inferior chest tube. Imp roved subpulmonic pneumothorax with residual small lateral pneumothorax. Remainder of exam is unchang ed. CONCLUSION: 1. Inferiorly placed right-sided chest tube with tip likely in the fissure. Improved right sided subp ulmonic pneumothorax. 2. Remainder of the exam is unchanged. Arpan Lauren MD on December 12, 2017 at 20:30 Board Certified Radiologist. This report was verified electronically.
[2017-12-12 21:06] LABS: HEMATOCRIT 37.7 % (39.0-51.0); HEMOGLOBIN 12.3 GM/DL (13.0-17.0); MEAN CELL VOLUME 92.5 FL (80.0-100.0); MEAN CORPUSCULAR HEMOGLOBIN 30.1 PG (27.0-34.0); MEAN CORPUSCULAR HGB CONC 32.5 % (32.0-36.0); MEAN PLATELET VOLUME 8.6 FL (7.0-11.0); PLATELET COUNT 93 TH/MM3 (150-450); RED BLOOD COUNT 4.07 MIL/MM3 (4.50-5.90); RED CELL DISTRIBUTION WIDTH 14.6 % (11.6-17.2); WHITE BLOOD COUNT 13.4 TH/MM3 (4.0-11.0)
[2017-12-12 21:27] LABS: ALBUMIN 1.2 GM/DL (3.4-5.0); BICARBONATE 19.6 MEQ/L (21.0-32.0); CALCIUM 6.9 MG/DL (8.5-10.1); CREATININE 1.88 MG/DL (0.60-1.30); TOTAL BILIRUBIN ADULT 0.7 MG/DL (0.2-1.0)
[2017-12-12] MEDS: LEVOFLOXACIN 750 MG PREMIX INJ 150 ML IV SCH (22:16)
[2017-12-13] VITALS (11 sets, daily range): BP systolic 71–131; BP diastolic 43–78; PULSE 71–101; RESP 34–36; TEMP 98.7–99; O2SAT 88–97
[2017-12-13] MEDS: RESP: ALBUTEROL 2.5 MG/3 ML NEB (PRN) NEB (00:19)
[2017-12-13] MEDS ORDERED: VASOPRESSIN INJ 40 UNITS in DEXTROSE 5% IN WATER 100ML INJ 98 ML IV SCH ×4 (00:36→07:11)
[2017-12-13] MEDS ORDERED: LACTATED RINGER'S 1000 ML INJ 1,000 ML IV ONE (00:45)
[2017-12-13] MEDS: NOREPINEPHRINE-DEXTROSE DRIP 250 ML IV PRN ×3 (00:45→06:38)
[2017-12-13] MEDS: INSULIN ASPART SUPPLEMENTAL SCALE SQ SCH ×3 (01:09→08:00)
[2017-12-13] MEDS: HYDROCORTISONE SOD SUCCINATE 100 MG VIAL IV PUSH SCH ×2 (01:12→04:45)
[2017-12-13] MEDS: [UNRECOGNIZED DRUG - REMARK] G-TUBE SCH ×3 (04:00→08:00)
[2017-12-13] MEDS ORDERED: CHLORHEXIDINE GLUCONATE 2 % 1 PACK (2 CLOTHS)(taper/protocol) TOPICAL SCH (04:00)
[2017-12-13] MEDS: RESP: ALBUTEROL 2.5 MG/IPRATROPIUM 0.5 MG NEB (SCH) NEB ×2 (04:02→08:19)
[2017-12-13] MEDS: metroNIDAZOLE 500 MG INJ 100 ML IV SCH (04:45)
[2017-12-13 05:49] LABS: INTERNATIONAL NORMALIZED RATIO 1.5 RATIO; PROTHROMBIN TIME - PATIENT 14.8 SEC (9.8-11.6)
[2017-12-13 05:59] LABS: HEMATOCRIT 38.5 % (39.0-51.0); HEMOGLOBIN 12.6 GM/DL (13.0-17.0); MEAN CELL VOLUME 94.7 FL (80.0-100.0); MEAN CORPUSCULAR HEMOGLOBIN 30.9 PG (27.0-34.0); MEAN CORPUSCULAR HGB CONC 32.6 % (32.0-36.0); PLATELET COUNT 71 TH/MM3 (150-450); RED BLOOD COUNT 4.07 MIL/MM3 (4.50-5.90); WHITE BLOOD COUNT 13.9 TH/MM3 (4.0-11.0)
[2017-12-13 06:07] LABS: BICARBONATE 18.2 MEQ/L (21.0-32.0); CALCIUM 7.1 MG/DL (8.5-10.1); CREATININE 2.48 MG/DL (0.60-1.30); MAGNESIUM 3.4 MG/DL (1.5-2.5)
[2017-12-13 06:10] LABS: TROPONIN I 0.1 NG/ML (0.02-0.05)
[2017-12-13] MEDS: AZTREONAM INJ 2,000 MG in SODIUM CHLORIDE 0.9% INJ 100 ML IV SCH (06:19)
[2017-12-13 06:29] LABS: CALCIUM-PROTEIN CORRECTED 8.2 MG/DL (8.5-10.1); TOTAL PROTEIN 5.1 GM/DL (6.4-8.2)
[2017-12-13] MEDS: NORMOSOL R INJ 1,000 ML IV SCH (06:40)
[2017-12-13] MEDS: PHENYTOIN INJ 100 MG/2 ML VIAL IV PUSH SCH (07:00)
[2017-12-13] MEDS: CHLORHEXIDINE 0.12% (ORAL KIT) 15 ML CUP MT SCH (08:00)
--- NOTE | 2017-12-13 08:28 | HHI.PR ---
Subjective Remarks NOW IN ICU ON THE VENTILATOR ON PESSORS 100% FILO2 BRONCH, CANCELLED Objective Vital Signs Date Time Temp Pulse Resp B/P (MAP) Pulse Ox O2 Delivery O2 Flow Rate FiO2 12/13/17 06:38 76 85/45 12/13/17 06:00 75 12/13/17 04:30 92 100 12/13/17 04:00 70 12/13/17 04:00 91 12/13/17 04:00 98.7 91 34 131/78 (95) 91 110/54 (72) 12/13/17 03:51 79 107/54 12/13/17 02:00 93 12/13/17 01:20 93 70 12/13/17 01:12 96 103/52 12/13/17 00:45 96 98/49 12/13/17 00:00 101 12/13/17 00:00 70 12/13/17 00:00 101 34 107/62 (77) 97 89/47 (61) 12/12/17 23:30 100 33 92/56 (68) 93 95/47 (63) 12/12/17 23:30 12/12/17 23:30 100 92/56 (68) 95/47 (63) 12/12/17 22:40 93 70 12/12/17 22:00 100 12/12/17 20:00 99.0 97 32 101/62 (75) 93 18 20:00 97 12/12/17 19:40 93 70 18 19:00 70 18 18:00 101 12/12/17 17:00 99 12/12/17 16:30 94 70 18 16:00 101 18 16:00 99.8 101 30 88/56 (67) 94 18 15:00 100 12/12/17 14:00 96 12/12/17 13:00 101 12/12/17 12:00 101 12/12/17 12:00 98.4 101 25 89/58 (68) 93 12/12/17 11:00 101 12/12/17 10:20 92 70 18 10:00 102 12/12/17 09:25 109 20 92 12/12/17 09:00 113 12/12/17 08:50 89 50 I/O 12/12/17 12/12/17 12/12/17 12/13/17 12/13/17 12/13/17 07:00 15:00 23:00 07:00 15:00 23:00 Intake Total 350 ml 4500 ml 2000 ml 2810.8 ml Output Total 925 ml 352 ml Balance -575 ml 4500 ml 2000 ml 2458.8 ml Intake Oral 0 ml IV Total 350 ml 4500 ml 2000 ml 2810.8 ml Output Urine Total 925 ml 350 ml Chest Tube Drainage Total 2 ml # Bowel Movements 0 0 Result Diagram: 12/13/175 12/13/17 0455 Objective Remarks GENERAL: ON VENT SUPPORT SKIN: Warm and dry. HEAD: Atraumatic. Normocephalic. EYES: Pupils equal and round. No scleral icterus. No injection or drainage. ENT: No nasal bleeding or discharge. Mucous membranes pink and moist. NECK: Trachea midline. No JVD. CARDIOVASCULAR: Regular rate and rhythm. RESPIRATORY: No accessory muscle use. Clear to auscultation. Breath sounds equal bilaterally. GASTROINTESTINAL: Abdomen soft, non-tender, nondistended. Hepatic and splenic margins not palpable. MUSCULOSKELETAL: Extremities without clubbing, cyanosis, or edema. No obvious deformities. NEUROLOGICAL: Awake and alert. No obvious cranial nerve deficits. Motor grossly within normal limits. Five out of 5 muscle strength in the arms and legs. Normal speech. PSYCHIATRIC: Appropriate mood and affect; insight and judgment normal. Assessment and Plan Assessment and Plan BILATERAL CAVITARY NODULES ADRENAL MASS RESP FAILURE PLAN VENT SUPPORT ANTIBX PER ID BX ADRENAL MASS TRACHEAL ASPIRATE SENT FOR CULTURWES, CYTO , PNEUMOCYSTIS AND NOCARDIA Nancy Cruz MD Dec 13, 2017 08:28
[2017-12-13] MEDS ORDERED: PHARMACY ORDERED LAB ONE (08:45)
[2017-12-13 08:46] LABS: BANDS 12 % (0-6); CORRECTED NUCLEATED RBC 3 /100 WBC (0-0); DOHLE BODIES PRESENT (NONE SEEN); LYMPHOCYTES 2 % (9-44); METAMYELOCYTES 7 % (0-1); MONOCYTES 3 % (0-8); NEUTROPHIL # MANUAL DIFF 13.2 TH/MM3 (1.8-7.7); NUCLEATED RED BLOOD CELL 3 (0-0); POLYS (SEG NEUTROPHILS) 76 % (16-70); TOXIC VACUOLATION PRESENT (NONE SEEN)
[2017-12-13 08:48] LABS: KERATOCYTES OCC (NORMAL); OVALOCYTES 1+ (NORMAL)
[2017-12-13] MEDS: SODIUM CHLORIDE 0.9% FLUSH 10 ML FLUSH IV FLUSH SCH (09:00)
[2017-12-13] MEDS: NYSTATIN SUSP 500,000 U/5 ML CUP SWISH-SPIT SCH (09:00)
[2017-12-13] MEDS: LACTOBACILLUS ACIDOPHILUS TAB PO SCH (09:00)
[2017-12-13] MEDS: guaiFENesin E.R. 600 MG TAB PO SCH (09:00)
[2017-12-13] MEDS: DOCUSATE SODIUM 50 MG/SENNA 8.6 MG TAB PO SCH (09:00)
--- NOTE | 2017-12-13 09:49 | HHI.CCPN ---
Subjective Remarks/Hospital Course 12/12: This is a 67-year-old male with a past medical history significant for COPD with ongoing tobaccoism, history of alcohol abuse with acute respiratory failure requiring intubation, history of alcohol withdrawal seizures, hypertension and dyslipidemia who presents to [facility] ED with complaints of progressive weakness, left-sided facial droop, difficulty swallowing and generalized malaise. Patient is a poor historian as well as has significant slurred speech. Due to patient's difficulty speaking, his caregivers are at the bedside and assist in providing much of the history. Apparently, patient developed complaints of fevers, generalized malaise and not feeling well. He was seen at urgent care and diagnosed with pneumonia given a prescription for doxycycline. Despite being compliant with medication patient continued to decline with progressive weakness. He was sent by [facility] to our ED on the for altered mental status and had a CT of the head done which was negative for any acute intracranial abnormality and was discharged the same day. Patient was then seen by his primary care physician Dr. King and was given a steroid injection. Patient developed left-sided facial droop on Monday and began having difficulty swallowing with increased slurred speech over the course of the past 3 days. Patient denies any cough during this time. He denies any hemoptysis. Denies any shortness of breath or chest pain. On admission he complained of weight loss however denied any vision changes, dizziness, lightheadedness, nausea, vomiting, focal weakness, abdominal pain, dysuria, hematuria, diarrhea or constipation. Patient was admitted by hospitalist service. He was transferred to ICU for respiratory distress yesterday and this morning would not keep his BiPAP on with worsening tachypnea and dyspnea. His blood cultures from admission grew out gram-negative rods. CT chest done last night revealed bilateral cavitary lesions with infiltrates as well as Lytic lesion involving right first rib as well as L3 and a large left adrenal mass. Due to worsening respiratory distress critical care was consulted by Dr. Kirk. I evaluated the patient on being notified of the consult. At that time he was extremely tachypneic breathing in the 40s despite BiPAP and was encephalopathic however was arousable and responsive to commands. Patient was emergently intubated and placed on mechanical ventilation for worsening respiratory failure. History was obtained by reviewing records and discussion with Dr. Lawrence and nursing staff. 12/13: Patient isn't profound septic shock. Received multiple fluid boluses yesterday and was started on pressors. Central line placed yesterday. He had a small basal pneumothorax on the right for which he had a chest tube placed last night. Remains orally intubated on mechanical ventilation on high-dose on Levophed with systolic blood pressure barely in the 70s. FiO2 requirement has increased to 100% and he is not maintaining O2 sats. Bronchoscopy canceled this morning by pulmonary in view of significant hemodynamic instability and poor oxygenation. Objective Vital Signs Date Time Temp Pulse Resp B/P (MAP) Pulse Ox O2 Delivery O2 Flow Rate FiO2 12/13/17 08:22 88 100 12/13/17 06:38 76 85/45 12/13/17 04:00 98.7 34 12/12/17 08:00 Bi-Pap 12/12/17 04:20 4.00 Intake and Output 12/13/17 12/13/17 12/14/17 08:00 16:00 00:00 Intake Total 2500 ml Output Total 352 ml Balance 2148 ml Result Diagram: 12/13/17 0455 12/13/17 0455 Other Results Microbiology Date/Time Source Procedure Growth Status 12/10/17 23:00 Urine Clean Catch Legionella Antigen - Final PRESUMPTIVE NEGATIVE FOR LEGIONELLA P... Complete Laboratory Tests Test 12/12/17 21:34 Blood Gas Puncture Site LT RADIAL Blood Gas Patient Temperature 98.6 Blood Gas HCO3 16 mmol/L (22-26) Blood Gas Base Excess -9.3 mmol/L (-2-2) Blood Gas Oxygen Saturation 93 % (90-100) Arterial Blood pH 7.31 (7.380-7.420) Arterial Blood Partial Pressure CO2 32 mmHg (38-42) Arterial Blood Partial Pressure O2 80 mmHg (61-120) Arterial Blood Oxygen Content 16.8 Vol % (12.0-20.0) Arterial Blood Carboxyhemoglobin 0.2 % (0-4) Arterial Blood Methemoglobin 1.1 % (0-2) Blood Gas Hemoglobin 12.9 G/DL (12.0-16.0) Oxygen Delivery Device VENTILATOR Blood Gas Ventilator Setting PRVC24/500/+5/1.0 Blood Gas Inspired Oxygen 70 % Procedures Intubation Objective Remarks HEENT/ Neuro: Sedated, orally intubated, Pallor present, no icterus, tongue/ mucosa moist Neck: No JVD Chest/Pulm: on mech vent, good air entry bilaterally, no wheezing or crackles. Scattered rhonchi bilaterally. Right sided chest tube in place, no air leak noted. CVS: S1-S2 regular, no murmur GI/abdomen: soft, nontender, bowel sounds sluggish Extremities: warm bilaterally, bilateral edema. A/P Assessment and Plan Gram-negative bacteremia Septic shock COPD Bilateral pneumonia Bilateral cavitary lesions Acute respiratory failure on mechanical ventilation Right pneumothorax status post chest tube placement Possible malignancy Left adrenal mass Lytic lesion at L3 and right first rib Plan: Neuro: Sedation with fentanyl, propofol held for hypotension., daily sedation vacation, follow neuro status. Cardiovascular: Fluid boluses, IV hydration. Levophed for pressor support, added low-dose vasopressin. Stress dose steroids. Pulmonary: Intubated and placed on mechanical ventilation. Being followed by pulmonary. Bronchoscopy cancer due to significant hemodynamic instability and worsening respiratory status. Vent bundle, bronchodilators as needed. GI/liver: Nothing by mouth for now. Renal/: IV hydration. Hypernatremia noted. Continue Normosol for IV hydration. Multiple fluid boluses needed for hypotension. Free water via OG tube. Strict intake output, monitor and replete electro lites, follow BUN creatinine. ID: Follow-up cultures. Blood cultures with gram-negative rods. Antibiotics per ID. Heme: Follow CBC and coags Endocrine: SSI for glycemic control if needed. On stress dose steroids. Prophylaxis: Protonic/SCDs/subcutaneous Lovenox Patient is and refractory shock with worsening respiratory failure and impending cardiac arrest. I discussed current clinical status with patient's brother by phone who is his decision maker and he has elected to make him DNR status as his prognosis is extremely poor. He wishes to focus on comfort. I did advise him that cardiac arrest was imminent as we are not able to maintain his blood pressure and oxygen levels optimally. Condition critical Time spent on critical care excluding procedures 45 minutes Merlin Jiménez MD Dec 13, 2017 09:49
--- NOTE | 2017-12-13 10:00 | HHI.IDPN ---
Subjective Subjective Remarks Patient is a 67-year-old male, lives in a care home, brought into the hospital for evaluation of progressive weakness, generalized mildly, and he was noted to have some facial droop, and difficulty swallowing as well as slurred speech. He was in the ED on December 04 for evaluation of altered mental status. He had some low-grade temps at that time. He was no chest x-ray done. CT of the head was negative. And his urinalysis was unremarkable. Looks like prior to that he was seen in the urgent care clinic and was diagnosed to have pneumonia, and was given doxycycline. He was not improving. Patient apparently has had progressive generalized weakness and was not improving. He was noted to have some slurring of his speech, and having difficulty swallowing for about 3 days. There was mention of left-sided facial droop. He was brought into the emergency room, and his chest x-ray showed bilateral cavitary lung lesions, confirmed on the CT of the chest. MRI of the brain was negative. His WBC was 20,000. 2 blood cultures done in the emergency room is now reported as growing gram-negative ten. Patient has had prior chest x-ray back in 2016 and did not show any cavitary lesions at that time. It's unclear how long he's been in the care home. There was no prior history of tuberculosis. There is prior history of alcohol abuse, but looks like he apparently has not been drinking in the last year. There is also history of smoking. Patient was transferred to the ICU for progressive shortness of breath, and he is now intubated. He has not been febrile since admission to the hospital. On reviewing his old records , he had positive hepatitis C testing. I don't see any prior HIV testing. Infectious disease consultation has been requested to evaluate the patient with gram-negative sepsis, and multiple cavitary lung lesions. Notes reviewed D/W Dr Jiménez CCM Increasing O2 requirement since last night Hypotensive, on pressors, BP remains low Has DNR status Temps ok UO low, creatinine rising HIV test negative TB PCR negative Quantiferon test pending Sputum C/S pending BC negative Bronch cancelled due to unstable status and high FiO2 requirement Has PTX R - CT placed last night Antibiotics Current Medications Azactam Levaquin Vanco Flagyl Medications (Trade) Dose Ordered Sig/Bridget Route Start Time Stop Time Status Last Admin (NS Flush) 2 ml UNSCH PRN IV FLUSH 12/10/17 17:15 (NS Flush) 2 ml BID IV FLUSH 12/10/17 21:00 12/12/17 22:17 (Tylenol) 650 mg Q4H PRN PO 12/10/17 17:15 (Zofran Inj) 4 mg Q6H PRN IVP 12/10/17 17:15 (Lovenox Inj) 30 mg Q24H SQ 12/10/17 18:00 Future Hold (Narcan Inj) 0.4 mg UNSCH PRN IV PUSH 12/10/17 17:15 (Babs-Colace) 1 tab BID PO 12/10/17 21:00 12/12/17 22:17 (Senokot) 17.2 mg Q12H PRN PO 12/10/17 17:15 (Dulcolax Supp) 10 mg DAILY PRN RECTAL 12/10/17 17:15 (Lactulose Liq) 30 ml DAILY PRN PO 12/10/17 17:15 (Lactinex) 1 tab TID PO 12/10/17 18:00 (Mucinex Er) 600 mg BID PO 12/10/17 21:00 (Duoneb Neb) 1 ampule Q4HR NEB NEB 12/10/17 20:00 12/13/17 08:19 (Albuterol Neb) 2.5 mg Q2HR NEB PRN NEB 12/10/17 17:15 12/13/17 00:19 Pharmacy Profile Note 0 ml @ 0 mls/hr UNSCH OTHER 12/10/17 18:15 Metronidazole 100 ml @ 100 mls/hr Q8H IV 12/10/17 20:00 12/13/17 04:45 Vancomycin HCl 1250 mg/Sodium Chloride 262.5 ml @ 250 mls/hr Q18H IV 12/11/17 21:00 12/11/17 20:55 (Protonix Inj) 40 mg Q24H IV PUSH 12/11/17 13:00 12/12/17 13:45 (Dilantin Inj) 150 mg Q8H IV PUSH 12/12/17 07:00 12/12/17 22:17 Levofloxacin/ Dextrose 150 ml @ 100 mls/hr Q24H IV 12/11/17 22:00 12/12/17 22:16 (Mycostatin Liq) 5 ml QID SWISH-SPIT 12/11/17 20:00 12/12/17 22:16 Miscellaneous Information Patient in critical care unit? Ass... Q361D .XX 12/12/17 08:00 (Chlorhexidine 2% Cloth) 3 pack DAILY@04 TOPICAL 12/13/17 04:00 12/17/17 04:01 12/12/17 21:57 (Chlorhexidine 2% Cloth) 3 pack UNSCH PRN TOPICAL 12/12/17 07:45 12/17/17 07:40 (Peridex 0.12% Liq) 15 ml BID@08,20 MT 12/12/17 08:00 12/12/17 20:00 Propofol 100 ml @ 0 mls/hr TITRATE PRN IV 12/12/17 08:00 12/12/17 08:45 Aztreonam 2000 mg/ Sodium Chloride 100 ml @ 200 mls/hr Q8H IV 12/12/17 13:00 12/13/17 06:19 Parenteral Electrolytes 1,000 ml @ 125 mls/hr Q8H IV 12/12/17 16:00 12/13/17 06:40 (Free Water) VOLUME OF WATER: ( 200 ) ML Q4HR G-TUBE 12/12/17 20:00 12/13/17 04:00 (NovoLOG SUPPLEMENTAL SCALE) 1 Q4HR SQ 12/12/17 20:00 12/13/17 01:09 (D50w (Vial) Inj) 25 ml UNSCH PRN IV 12/12/17 18:45 (Glucagon Inj) 1 mg UNSCH PRN IM/SQ 12/12/17 18:45 (Brethine Inj) 1 mg UNSCH PRN SQ 12/12/17 18:45 Fentanyl Citrate 250 ml @ 5 mls/hr TITRATE PRN IV 12/12/17 20:30 12/13/17 00:11 Norepinephrine Bitartrate 250 ml @ 7.5 mls/hr TITRATE PRN IV 12/13/17 00:45 12/13/17 06:38 Vasopressin 40 units/Dextrose 100 ml @ 6 mls/hr [id number] IV 12/13/17 00:36 12/13/17 01:12 (SoluCORTEF INJ) 100 mg Q8HR IV PUSH 12/13/17 00:45 12/13/17 04:45 Vasopressin 40 units/Dextrose 100 ml @ 6 mls/hr [id number] IV 12/13/17 07:11 Lines RIJ TLC Past Medical History COPD with ongoing tobacco use History of left lacunar basal ganglia infarct History of acute respiratory distress requiring intubation History of alcohol withdrawal seizures Hepatitis C Hypertension Dyslipidemia Past Surgical History Previous tracheostomy and PEG tube placement Allergies: Coded Allergies: procaine (Unverified Allergy, Intermediate, 12/10/17) penicillin G (Unverified Allergy, Unknown, 12/10/17) Objective . Vital Signs Date Time Temp Pulse Resp B/P (MAP) Pulse Ox O2 Delivery O2 Flow Rate FiO2 12/13/17 08:22 88 100 12/13/17 06:38 76 85/45 12/13/17 06:00 75 12/13/17 04:30 92 100 12/13/17 04:00 70 12/13/17 04:00 91 12/13/17 04:00 98.7 91 34 131/78 (95) 91 110/54 (72) 12/13/17 03:51 79 107/54 12/13/17 02:00 93 12/13/17 01:20 93 70 12/13/17 01:12 96 103/52 12/13/17 00:45 96 98/49 12/13/17 00:00 101 12/13/17 00:00 70 12/13/17 00:00 101 34 107/62 (77) 97 89/47 (61) 12/12/17 23:30 100 33 92/56 (68) 93 95/47 (63) 12/12/17 23:30 12/12/17 23:30 100 92/56 (68) 95/47 (63) 12/12/17 22:40 93 70 12/12/17 22:00 100 12/12/17 20:00 99.0 97 32 101/62 (75) 93 12/12/17 20:00 97 12/12/17 19:40 93 70 12/12/17 19:00 70 12/12/17 18:00 101 12/12/17 17:00 99 12/12/17 16:30 94 70 12/12/17 16:00 101 12/12/17 16:00 99.8 101 30 88/56 (67) 94 12/12/17 15:00 100 12/12/17 14:00 96 12/12/17 13:00 101 12/12/17 12:00 101 12/12/17 12:00 98.4 101 25 89/58 (68) 93 12/12/17 11:00 101 12/12/17 10:20 92 70 12/12/17 10:00 102 . Laboratory Tests Test 12/11/17 10:06 12/12/17 12:35 12/12/17 20:25 12/13/17 04:55 White Blood Count 20.4 TH/MM3 11.9 TH/MM3 13.4 TH/MM3 13.9 TH/MM3 Red Blood Count 4.60 MIL/MM3 4.62 MIL/MM3 4.07 MIL/MM3 4.07 MIL/MM3 Hemoglobin 13.9 GM/DL 13.8 GM/DL 12.3 GM/DL 12.6 GM/DL Hematocrit 41.2 % 42.1 % 37.7 % 38.5 % Mean Corpuscular Volume 89.6 FL 91.1 FL 92.5 FL 94.7 FL Mean Corpuscular Hemoglobin 30.2 PG 29.9 PG 30.1 PG 30.9 PG Mean Corpuscular Hemoglobin Concent 33.7 % 32.8 % 32.5 % 32.6 % Red Cell Distribution Width 13.9 % 14.8 % 14.6 % 15.0 % Platelet Count 185 TH/MM3 124 TH/MM3 93 TH/MM3 71 TH/MM3 Mean Platelet Volume 8.3 FL 8.6 FL 8.6 FL 9.0 FL Neutrophils (%) (Auto) 94.0 % 94.7 % Lymphocytes (%) (Auto) 3.2 % 3.2 % Monocytes (%) (Auto) 2.7 % 2.0 % Eosinophils (%) (Auto) 0.0 % 0.1 % Basophils (%) (Auto) 0.1 % 0.0 % Neutrophils # (Auto) 19.2 TH/MM3 11.3 TH/MM3 Lymphocytes # (Auto) 0.7 TH/MM3 0.4 TH/MM3 Monocytes # (Auto) 0.6 TH/MM3 0.2 TH/MM3 Eosinophils # (Auto) 0.0 TH/MM3 0.0 TH/MM3 Basophils # (Auto) 0.0 TH/MM3 0.0 TH/MM3 CBC Comment DIFF FINAL AUTO DIFF AUTO DIFF Differential Comment FINAL DIFF MANUAL FINAL DIFF MANUAL Differential Total Cells Counted 100 100 Neutrophils % (Manual) 63 % 76 % Band Neutrophils % 27 % 12 % Lymphocytes % 9 % 2 % Monocytes % 1 % 3 % Neutrophils # (Manual) 10.7 TH/MM3 13.2 TH/MM3 Platelet Estimate LOW LOW Platelet Morphology Comment NORMAL NORMAL Fleming Cells 1+ Metamyelocytes 7 % Nucleated Red Blood Cells 3 /100 WBC Toxic Vacuolation PRESENT Dohle Bodies PRESENT Ovalocytes 1+ Keratocytes OCC Laboratory Tests Test 12/11/17 10:06 12/11/17 13:45 12/12/17 12:33 12/12/17 12:35 Blood Urea Nitrogen 42 MG/DL 43 MG/DL Creatinine 1.06 MG/DL 1.45 MG/DL Random Glucose 173 MG/DL 225 MG/DL Total Protein 6.8 GM/DL Albumin 1.6 GM/DL Calcium Level 8.2 MG/DL 7.6 MG/DL Alkaline Phosphatase 101 U/L Aspartate Amino Transf (AST/SGOT) 45 U/L Alanine Aminotransferase (ALT/SGPT) 14 U/L Total Bilirubin 0.9 MG/DL Sodium Level 157 MEQ/L 162 MEQ/L Potassium Level 2.9 MEQ/L 4.7 MEQ/L Chloride Level 123 MEQ/L 130 MEQ/L Carbon Dioxide Level 24.7 MEQ/L 21.9 MEQ/L Anion Gap 9 MEQ/L 10 MEQ/L Estimat Glomerular Filtration Rate 85 ML/MIN 59 ML/MIN Lactic Acid Level 2.5 mmol/L 2.7 mmol/L 4.6 mmol/L Magnesium Level 3.9 MG/DL 3.5 MG/DL Test 12/12/17 20:25 12/13/17 04:55 Blood Urea Nitrogen 54 MG/DL 59 MG/DL Creatinine 1.88 MG/DL 2.48 MG/DL Random Glucose 193 MG/DL 186 MG/DL Total Protein 5.0 GM/DL 5.1 GM/DL Albumin 1.2 GM/DL Calcium Level 6.9 MG/DL 7.1 MG/DL Alkaline Phosphatase 67 U/L Aspartate Amino Transf (AST/SGOT) 42 U/L Alanine Aminotransferase (ALT/SGPT) 8 U/L Total Bilirubin 0.7 MG/DL Sodium Level 162 MEQ/L 158 MEQ/L Potassium Level 4.5 MEQ/L 4.8 MEQ/L Chloride Level 127 MEQ/L 125 MEQ/L Carbon Dioxide Level 19.6 MEQ/L 18.2 MEQ/L Anion Gap 15 MEQ/L 15 MEQ/L Estimat Glomerular Filtration Rate 44 ML/MIN 32 ML/MIN Lactic Acid Level 5.3 mmol/L Protein Corrected Calcium 8.0 MG/DL 8.2 MG/DL Troponin I 0.05 NG/ML 0.10 NG/ML Magnesium Level 3.4 MG/DL Microbiology Date/Time Source Procedure Growth Status 12/12/17 12:35 Blood Peripheral Aerobic Blood Culture Pending Received 12/12/17 12:35 Blood Peripheral Anaerobic Blood Culture Pending Received 12/12/17 12:22 Blood Peripheral Aerobic Blood Culture Pending Received 12/12/17 12:22 Blood Peripheral Anaerobic Blood Culture Pending Received 12/10/17 13:30 Blood Peripheral Aerobic Blood Culture - Preliminary Gram Negative Ten Resulted 12/10/17 13:30 Anaerobic Blood Culture - Preliminary Gram Negative Ten Resulted 12/10/17 13:20 Blood Peripheral Aerobic Blood Culture - Preliminary Gram Negative Ten Resulted 12/10/17 13:20 Anaerobic Blood Culture - Preliminary Gram Negative Ten Resulted 12/12/17 11:15 Sputum Endotracheal Fungal Smear - Final NO FUNGAL ELEMENTS SEEN. Resulted 12/12/17 11:15 Sputum Endotracheal Fungal Culture Pending Resulted 12/12/17 11:15 Sputum Endotracheal Acid Fast Stain Pending Received 12/12/17 11:15 Sputum Endotracheal Mycobacterial Culture Pending Received 12/12/17 11:15 Sputum Endotracheal Gram Stain - Final Resulted 12/12/17 11:15 Sputum Endotracheal Sputum Culture Pending Resulted 12/10/17 23:00 Urine Clean Catch Legionella Antigen - Final PRESUMPTIVE NEGATIVE FOR LEGIONELLA P... Complete Imaging Last Impressions Chest X-Ray 12/12/17 0000 Signed Impressions: Service Date/Time: Tuesday, December 12, 2017 19:49 - CONCLUSION: 1. Inferiorly placed right-sided chest tube with tip likely in the fissure. Improved right sided subpulmonic pneumothorax. 2. Remainder of the exam is unchanged. Arpan Lauren MD Chest CT 12/11/17 0000 Signed Impressions: Service Date/Time: Monday, December 11, 2017 19:59 - CONCLUSION: Cavitating infiltrates bilaterally. Large adrenal mass seen in the upper abdomen Raza Quevedo MD Neck CT 12/10/17 0000 Signed Impressions: Service Date/Time: Sunday, December 10, 2017 18:08 - CONCLUSION: Destructive lesion of the right first rib with an adjacent large cavity in the right lung apex. Questionable lytic lesion in T3 on the left Amilcar Delgado MD Carotid Artery Ultrasound 12/10/17 0000 Signed Impressions: Service Date/Time: Sunday, December 10, 2017 18:37 - CONCLUSION: 1. Moderate atherosclerotic plaque within the carotid bulbs bilaterally, not significantly change in visual appearance since the prior study. Findings indicate less than 50 %% stenosis in the left internal carotid artery and potentially between 50-69%% stenosis in the right internal carotid artery.. 2. There is antegrade flow within both vertebral arteries. Raza Ashby MD Brain MRI 12/10/17 0000 Signed Impressions: Service Date/Time: Sunday, December 10, 2017 19:42 - CONCLUSION: 1. No acute intracranial abnormality is identified. 2. Chronic changes include mild atrophy and chronic periventricular white matter changes characteristic of chronic microvascular ischemia. Raza Ashby MD Physical Exam GENERAL: Patient is a thin, sedated on the vent, not in respiratory distress. SKIN: Cool and dry. No generalized rash, no ecchymoses and no evidence of embolic lesions. HEAD: Atraumatic. Normocephalic. EYES: Pale conjunctiva. No petechia or hemorrhage. He has dirty sclera. No injection or drainage. EARS, NOSE AND THROAT: Nose without bleeding or purulent nasal discharge. He is orally intubated. NECK: Trachea midline. Supple and not tender, no meningeal signs CARDIOVASCULAR: Regular rate and rhythm. No murmurs, rubs or gallops heard RESPIRATORY: Coarse breath sounds bilaterally, equal. R CT in place. Has SQ emphysema on anterior chest worse on R ABDOMEN: Soft, flat, not distended, no reaction to deep palpation. Bowel sounds present and normoactive. No organomegaly. EXTREMITIES: No clubbing, cyanosis. Developing edema susan in UE. NEUROLOGICAL: Sedated, no Babinski, no ankle clonus PSYCHIATRIC: Unable to assess LINE: No evidence of infection Assessment & Plan Remarks IMPRESSION Bilateral cavitary lung lesions, possibly infectious etiology - lives in a care home - ?underlying immunocompromised state - HIV negative - TB PCR negative - ?unusual pathogens Septic shock, on pressors Renal insufficiency worse, due to sepsis, and shock Hx ETOH abuse, minimal use in last 2 years Hx tobacco use Cachexia RECOMMENDATION Follow TB quantiferon Follow C/S Has DNT status He is doing poorly Has DNR status Continue current Abx: dose adjusted for worsening renal function Monitor progress Prognosis poor D/W Dr Jiménez ([facility]) Hollie Ortega MD Dec 13, 2017 10:00
--- NOTE | 2017-12-13 11:29 | PD.CONS ---
Consult Service Palliative Care . Consult Requested By Dr. Jiménez . Primary Care Physician [facility] . Reason for Consultation a. To assist with evaluation and management of symptoms including: dysphagia , dyspnea, debility b. To assist medical decision maker(s) with: better understanding of current medical conditions; weighing benefits/burdens of medical treatment options; making medical treatment decisions. . HPI History of Present Illness Mr. Fernandez is a 67 year old male with a history of EtOH abuse, acute respiratory distress requiring intubation, COPD with ongoing tobaccoism, previous left lacunar basal ganglia infarct, Hep C, hypertension and dyslipidemia who presented to [facility] ED on 12/10/2017 with complaints of progressive weakness, left-sided facial droop, dysphasia and generalized malaise that has progressively worsened over the course of the past 3 days. Patient was having difficulty communicating because his speech was slurred so much of his history was provided by his caregivers. Apparently the patient was recently diagnosed with pneumonia and was started on doxycycline, however his condition worsened despite being compliant with antibiotic regimen. The patient was seen in the ED on 12/04/17 for evaluation of altered mental status. A CT of the head at that time was negative for any acute intracranial abnormalities and the patient was discharged home. Patient endorsed decreased appetite with associated weight loss. Additional diagnostic data: * Vital signs: Pulse 104, respirations 22, BP 107/67, oxygen saturation 95% on room air, oral temperature 98.1 * WBC: 20.8, hemoglobin 15.6, hematocrit 46.3, platelets 190, neutrophils 94.4% * Sodium: 151: Potassium 4.2, chloride 115, carbon dioxide 24.5, glucose 109, calcium 8.5 * BUN: 40, creatinine 1.18, GFR 75 * Total bilirubin: 1.1, AST 53, ALT 15, alkaline phosphatase 108 * Total protein: 7.5, albumin 1.8 * MRI of the brain revealed no acute intracranial abnormalities. Chronic changes including mild atrophy and chronic periventricular white matter changes characteristic of chronic microvascular ischemia were noted. * Chest x-ray showed bilateral perihilar infiltrates and a wedge-shaped density in the right lung apex; large bleb right upper lobe. * Ultrasound of the carotid arteries showed moderate atherosclerotic plaque within the carotid bulbs bilaterally, not significantly changed since prior study. Findings indicate less than 50% stenosis in the left internal carotid artery and potentially 50-69% stenosis in the right internal carotid artery there is antegrade flow within both vertebral arteries * CT of the neck showed a destructive lesion of the right first rib with an adjacent large cavity in the right lung apex. Questionable lytic lesions in T3 on the left Patient had what appeared to be thrush in his mouth. Labs and imaging were consistent with sepsis and pneumonia that failed outpatient treatment. Patient received IV fluids and was started on IV Flagyl and Vancomycin. Pulmonology, neurology and speech therapy were consulted. Patient failed swallow evaluation secondary to severe pharyngeal dysphagia with overt signs of aspiration. Pulmonology (Dr. Nancy Cruz) made recommendations to maintain the patient on oxygen therapy PRN, bronchodilators and antibiotics for underlying infection. CT of the chest/thorax showed bilateral cavitary nodules and an adrenal mass. Recommendations for bronchoscopy and biopsy of the adrenal mass. Infectious disease was consulted for recommendations regarding gram-negative sepsis and multiple cavitary lung lesions. Blood cultures growing Serratia Marcescens; negative urine culture. Receiving Azactam, Flagyl, Levaquin and Vancomycin for empiric antibiotic coverage. HIV negative; TB PCR negative. Tracheal aspirate cultures pending; follow-up blood cultures pending 12/12/17, the patient became tachypneic with respirations in the 40s while on BiPAP and encephalopathic requiring emergent intubation. Patient received multiple fluid boluses and was started on pressor support status post CVL placement. He had a showed a small 1.3 cm right sub-pulmonic pneumothorax for which a chest tube was placed. Patient is in septic shock requiring pressor support, however systolic pressures remain in the 70s on Levophed. Oxygen saturation in the high 80s on 100% FiO2. Palliative Care was consulted to assist with symptom management and to discuss with the family the benefits and burdens of his current illnesses and the options regarding future care.. . Function/Cognitive Trajectory Patient was living in a assisted in [place] from 07/2016 through 10/2016 at which time he returned to [place] and was living in a senior living. Further information pending conversation with patient's family. . Review of Systems ROS Limitations: Clinical Condition, Intubated, Altered Mental Status, Poor Historian Constitutional: COMPLAINS OF: Change in appetite, Generalized weakness Respiratory: COMPLAINS OF: Shortness of breath Gastrointestinal: COMPLAINS OF: Difficulty Swallowing Hematologic/Lymphatics: COMPLAINS OF: Bruising (ROS obtained through review of medical records and report.) Past Family Social History Coded Allergies: procaine (Unverified Allergy, Intermediate, 12/10/17) penicillin G (Unverified Allergy, Unknown, 12/10/17) Past Medical History COPD with ongoing tobacco use History of left lacunar basal ganglia infarct History of acute respiratory distress requiring intubation History of alcohol withdrawal seizures Hepatitis C Hypertension Dyslipidemia . Past Surgical History Previous tracheostomy and PEG tube placement . Reported Medications Metoprolol Succinate ER 24 HR (Metoprolol Succinate) 25 Mg Tab 25 Mg PO DAILY Pravastatin 20 Mg Tab 20 Mg PO DAILY Phenytoin Liq (Phenytoin) 125 Mg/5 Ml Asuncion 150 Mg PO Q8HR Aspirin EC (Aspirin) 81 Mg Tabdr 81 Mg PO DAILY Proair Hfa 8.5 GM Inh (Albuterol Sulfate) 90 Mcg/Act Aer 2 Puff INH Q4-6H PRN 108 mcg/actuation . Current Medications Medications (Trade) Dose Ordered Sig/Bridget Route Start Time Stop Time Status Last Admin (NS Flush) 2 ml UNSCH PRN IV FLUSH 12/10/17 17:15 (NS Flush) 2 ml BID IV FLUSH 12/10/17 21:00 12/12/17 22:17 (Tylenol) 650 mg Q4H PRN PO 12/10/17 17:15 (Zofran Inj) 4 mg Q6H PRN IVP 12/10/17 17:15 (Lovenox Inj) 30 mg Q24H SQ 12/10/17 18:00 Future Hold (Narcan Inj) 0.4 mg UNSCH PRN IV PUSH 12/10/17 17:15 (Babs-Colace) 1 tab BID PO 12/10/17 21:00 12/12/17 22:17 (Senokot) 17.2 mg Q12H PRN PO 12/10/17 17:15 (Dulcolax Supp) 10 mg DAILY PRN RECTAL 12/10/17 17:15 (Lactulose Liq) 30 ml DAILY PRN PO 12/10/17 17:15 (Lactinex) 1 tab TID PO 12/10/17 18:00 (Mucinex Er) 600 mg BID PO 12/10/17 21:00 (Duoneb Neb) 1 ampule Q4HR NEB NEB 12/10/17 20:00 12/13/17 08:19 (Albuterol Neb) 2.5 mg Q2HR NEB PRN NEB 12/10/17 17:15 12/13/17 00:19 Pharmacy Profile Note 0 ml @ 0 mls/hr UNSCH OTHER 12/10/17 18:15 Metronidazole 100 ml @ 100 mls/hr Q8H IV 12/10/17 20:00 12/13/17 04:45 (Protonix Inj) 40 mg Q24H IV PUSH 12/11/17 13:00 12/12/17 13:45 (Dilantin Inj) 150 mg Q8H IV PUSH 12/12/17 07:00 12/12/17 22:17 Levofloxacin/ Dextrose 150 ml @ 100 mls/hr Q24H IV 12/11/17 22:00 12/12/17 22:16 (Mycostatin Liq) 5 ml QID SWISH-SPIT 12/11/17 20:00 12/12/17 22:16 Miscellaneous Information Patient in critical care unit? Ass... Q361D .XX 12/12/17 08:00 (Chlorhexidine 2% Cloth) 3 pack DAILY@04 TOPICAL 12/13/17 04:00 12/17/17 04:01 12/12/17 21:57 (Chlorhexidine 2% Cloth) 3 pack UNSCH PRN TOPICAL 12/12/17 07:45 12/17/17 07:40 (Peridex 0.12% Liq) 15 ml BID@08,20 MT 12/12/17 08:00 12/12/17 20:00 Propofol 100 ml @ 0 mls/hr TITRATE PRN IV 12/12/17 08:00 12/12/17 08:45 Parenteral Electrolytes 1,000 ml @ 125 mls/hr Q8H IV 12/12/17 16:00 12/13/17 06:40 (Free Water) VOLUME OF WATER: ( 200 ) ML Q4HR G-TUBE 12/12/17 20:00 12/13/17 04:00 (NovoLOG SUPPLEMENTAL SCALE) 1 Q4HR SQ 12/12/17 20:00 12/13/17 01:09 (D50w (Vial) Inj) 25 ml UNSCH PRN IV 12/12/17 18:45 (Glucagon Inj) 1 mg UNSCH PRN IM/SQ 12/12/17 18:45 (Brethine Inj) 1 mg UNSCH PRN SQ 12/12/17 18:45 Fentanyl Citrate 250 ml @ 5 mls/hr TITRATE PRN IV 12/12/17 20:30 12/13/17 00:11 Norepinephrine Bitartrate 250 ml @ 7.5 mls/hr TITRATE PRN IV 12/13/17 00:45 12/13/17 06:38 Vasopressin 40 units/Dextrose 100 ml @ 6 mls/hr [id number] IV 12/13/17 00:36 12/13/17 01:12 (SoluCORTEF INJ) 100 mg Q8HR IV PUSH 12/13/17 00:45 12/13/17 04:45 Vasopressin 40 units/Dextrose 100 ml @ 6 mls/hr [id number] IV 12/13/17 07:11 Aztreonam 1000 mg/ Sodium Chloride 100 ml @ 200 mls/hr Q12H IV 12/13/17 17:00 UNV Family History Patient denies any knowledge of familial medical history; parents are . . Substance Use Tobacco: History of EtOH abuse; patient reportedly quit over 2 years ago. Alcohol: Patient admits to tobacco use; he smokes 3 plaque and mild cigars daily Prescription med abuse: None known Illicits: None unknown . Psychosocial History Patient has not worked in many years. He has a history of heavy EtOH consumption, 10-12 beers daily, but states he quit drinking when he was hospitalized in July,. Patient has been living at a senior living in [facility] since October,. Before that, he lived at a assisted in [place]. . Spiritual/Cultural Factors Hoahaoism tyrell . Living Will: Never completed Health Care Surrogate: Never completed Durable Power of Workers Compensation Legal Secretary: Never completed Documented care wishes: No known documented care wishes were completed . Today's verbally stated goals: Patient is unable to participate in establishment of medical treatment goals secondary to his current clinical condition. . Family/friends goals: Pending further conversation with patient's family. . Ethical and Legal Issues Per [place] statutes, in the absence of written advanced directives healthcare proxy decision making may follow to any of the following individuals, in the following order of priority, if no individual and a prior class is reasonably available, willing are competent to act: = A judicially appointed guardian or guardian advocate = Spouse = An adult child of the patient or, if the patient has more than 1 adult child , a majority of the adult children who are reasonably available for consultation = A parent of the patient = The adult sibling of the patient or, if the patient has more than one sibling , a majority of the adult siblings who are reasonably available for consultation = An adult relative the patient who has exhibited special care and for concern for the patient and to has maintained regular contact with the patient. = A close friend of the patient . Physical Exam Vital Signs Date Time Temp Pulse Resp B/P (MAP) Pulse Ox O2 Delivery O2 Flow Rate FiO2 12/13/17 08:22 88 100 12/13/17 06:38 76 85/45 12/13/17 06:00 75 12/13/17 04:30 92 100 12/13/17 04:00 70 12/13/17 04:00 91 12/13/17 04:00 98.7 91 34 131/78 (95) 91 110/54 (72) 12/13/17 03:51 79 107/54 12/13/17 02:00 93 12/13/17 01:20 93 70 12/13/17 01:12 96 103/52 12/13/17 00:45 96 98/49 12/13/17 00:00 101 12/13/17 00:00 70 12/13/17 00:00 101 34 107/62 (77) 97 89/47 (61) 12/12/17 23:30 100 33 92/56 (68) 93 95/47 (63) 12/12/17 23:30 12/12/17 23:30 100 92/56 (68) 95/47 (63) 12/12/17 22:40 93 70 12/12/17 22:00 100 12/12/17 20:00 99.0 97 32 101/62 (75) 93 12/12/17 20:00 97 12/12/17 19:40 93 70 12/12/17 19:00 70 12/12/17 18:00 101 12/12/17 17:00 99 12/12/17 16:30 94 70 12/12/17 16:00 101 12/12/17 16:00 99.8 101 30 88/56 (67) 94 12/12/17 15:00 100 12/12/17 14:00 96 12/12/17 13:00 101 12/12/17 12:00 101 12/12/17 12:00 98.4 101 25 89/58 (68) 93 12/12/17 11:00 101 12/12/17 10:20 92 70 . Exam CONSTITUTIONAL/GENERAL: This is a frail, critically ill patient currently intubated on mechanical ventilation TUBES/LINES/DRAINS: ETT, NGT, CVL, PIV 2, indwelling urinary catheter SKIN: No jaundice, rashes, or lesions. No wounds seen anteriorly. Skin temperature appropriate. Not diaphoretic. HEAD: Atraumatic. Normocephalic. EYES: Pupils equal and round and reactive. Extraocular motions intact. No scleral icterus. No injection or drainage. Fundi not examined. ENT: Unable to assess hearing given current clinical condition. Nose without bleeding or purulent drainage. Orally intubated NECK: Trachea midline. Supple, nontender. No palpable thyroid enlargement or nodularity. CARDIOVASCULAR: Regular rate and rhythm without murmurs, gallops, or rubs. No JVD. Peripheral pulses symmetric. RESPIRATORY/CHEST: Intubated on mechanical ventilation. Coarse air exchange. Right-sided chest tube in place. GASTROINTESTINAL: Abdomen soft, non-tender, nondistended. GENITOURINARY: Without palpable bladder distension. Maria catheter in place. MUSCULOSKELETAL: Extremities without clubbing or cyanosis. Edematous. LYMPHATICS: No palpable cervical or supraclavicular adenopathy. NEUROLOGICAL: Sedated. PSYCHIATRIC: Unable to assess given current clinical condition. . Diagnostic Tests Laboratory Laboratory Tests Test 12/10/17 13:30 12/10/17 15:10 12/11/17 10:06 12/11/17 13:45 White Blood Count 20.8 TH/MM3 (4.0-11.0) 20.4 TH/MM3 (4.0-11.0) Red Blood Count 5.20 MIL/MM3 (4.50-5.90) 4.60 MIL/MM3 (4.50-5.90) Hemoglobin 15.6 GM/DL (13.0-17.0) 13.9 GM/DL (13.0-17.0) Hematocrit 46.3 % (39.0-51.0) 41.2 % (39.0-51.0) Mean Corpuscular Volume 89.0 FL (80.0-100.0) 89.6 FL (80.0-100.0) Mean Corpuscular Hemoglobin 30.0 PG (27.0-34.0) 30.2 PG (27.0-34.0) Mean Corpuscular Hemoglobin Concent 33.7 % (32.0-36.0) 33.7 % (32.0-36.0) Red Cell Distribution Width 14.0 % (11.6-17.2) 13.9 % (11.6-17.2) Platelet Count 190 TH/MM3 (150-450) 185 TH/MM3 (150-450) Mean Platelet Volume 8.1 FL (7.0-11.0) 8.3 FL (7.0-11.0) Neutrophils (%) (Auto) 94.4 % (16.0-70.0) 94.0 % (16.0-70.0) Lymphocytes (%) (Auto) 3.0 % (9.0-44.0) 3.2 % (9.0-44.0) Monocytes (%) (Auto) 2.5 % (0.0-8.0) 2.7 % (0.0-8.0) Eosinophils (%) (Auto) 0.0 % (0.0-4.0) 0.0 % (0.0-4.0) Basophils (%) (Auto) 0.1 % (0.0-2.0) 0.1 % (0.0-2.0) Neutrophils # (Auto) 19.6 TH/MM3 (1.8-7.7) 19.2 TH/MM3 (1.8-7.7) Lymphocytes # (Auto) 0.6 TH/MM3 (1.0-4.8) 0.7 TH/MM3 (1.0-4.8) Monocytes # (Auto) 0.5 TH/MM3 (0-0.9) 0.6 TH/MM3 (0-0.9) Eosinophils # (Auto) 0.0 TH/MM3 (0-0.4) 0.0 TH/MM3 (0-0.4) Basophils # (Auto) 0.0 TH/MM3 (0-0.2) 0.0 TH/MM3 (0-0.2) CBC Comment AUTO DIFF DIFF FINAL Differential Total Cells Counted 100 Neutrophils % (Manual) 79 % (16-70) Band Neutrophils % 15 % (0-6) Lymphocytes % 5 % (9-44) Monocytes % 1 % (0-8) Neutrophils # (Manual) 19.6 TH/MM3 (1.8-7.7) Differential Comment FINAL DIFF MANUAL Platelet Estimate NORMAL (NORMAL) Platelet Morphology Comment NORMAL (NORMAL) Red Cell Morphology Comment NORMAL (NORMAL) Blood Urea Nitrogen 40 MG/DL (7-18) 42 MG/DL (7-18) Creatinine 1.18 MG/DL (0.60-1.30) 1.06 MG/DL (0.60-1.30) Random Glucose 109 MG/DL (74-106) 173 MG/DL (74-106) Total Protein 7.5 GM/DL (6.4-8.2) 6.8 GM/DL (6.4-8.2) Albumin 1.8 GM/DL (3.4-5.0) 1.6 GM/DL (3.4-5.0) Calcium Level 8.5 MG/DL (8.5-10.1) 8.2 MG/DL (8.5-10.1) Alkaline Phosphatase 108 U/L (45-117) 101 U/L (45-117) Aspartate Amino Transf (AST/SGOT) 53 U/L (15-37) 45 U/L (15-37) Alanine Aminotransferase (ALT/SGPT) 15 U/L (12-78) 14 U/L (12-78) Total Bilirubin 1.1 MG/DL (0.2-1.0) 0.9 MG/DL (0.2-1.0) Sodium Level 151 MEQ/L (136-145) 157 MEQ/L (136-145) Potassium Level 4.2 MEQ/L (3.5-5.1) 2.9 MEQ/L (3.5-5.1) Chloride Level 115 MEQ/L (98-107) 123 MEQ/L (98-107) Carbon Dioxide Level 24.5 MEQ/L (21.0-32.0) 24.7 MEQ/L (21.0-32.0) Anion Gap 12 MEQ/L (5-15) 9 MEQ/L (5-15) Estimat Glomerular Filtration Rate 75 ML/MIN (>89) 85 ML/MIN (>89) Phenytoin (Dilantin) Level 1.6 MCG/ML (10.0-20.0) Blood Gas Puncture Site RT RADIAL Blood Gas Patient Temperature 98.6 Blood Gas HCO3 22 mmol/L (22-26) Blood Gas Base Excess -1.2 mmol/L (-2-2) Blood Gas Oxygen Saturation 94 % (90-100) Arterial Blood pH 7.47 (7.380-7.420) Arterial Blood Partial Pressure CO2 30 mmHg (38-42) Arterial Blood Partial Pressure O2 74 mmHG (61-120) Arterial Blood Oxygen Content 20.4 Vol % (12.0-20.0) Arterial Blood Carboxyhemoglobin 0.8 % (0-4) Arterial Blood Methemoglobin 0.6 % (0-2) Blood Gas Hemoglobin 15.5 G/DL (12.0-16.0) Oxygen Delivery Device ROOM AIR Blood Gas Inspired Oxygen 21 % Lactic Acid Level 2.5 mmol/L (0.4-2.0) 2.7 mmol/L (0.4-2.0) Mycoplasma Pneumoniae Interpretat . Mycoplasma pneumoniae IgG Antibody Positive (Negative) Mycoplasma pneumoniae IgM Antibody Negative (Negative) Magnesium Level 3.9 MG/DL (1.5-2.5) Test 12/12/17 05:23 12/12/17 08:26 12/12/17 09:10 12/12/17 11:15 Blood Gas Puncture Site LT RADIAL LT RADIAL Blood Gas Patient Temperature 98.6 98.6 Blood Gas HCO3 19 mmol/L (22-26) 21 mmol/L (22-26) Blood Gas Base Excess -4.6 mmol/L (-2-2) -6.0 mmol/L (-2-2) Blood Gas Oxygen Saturation 89 % (90-100) 89 % (90-100) Arterial Blood pH 7.43 (7.380-7.420) 7.21 (7.380-7.420) Arterial Blood Partial Pressure CO2 29 mmHg (38-42) 53 mmHg (38-42) Arterial Blood Partial Pressure O2 63 mmHg (61-120) 78 mmHg (61-120) Arterial Blood Oxygen Content 19.1 Vol % (12.0-20.0) 17.3 Vol % (12.0-20.0) Arterial Blood Carboxyhemoglobin 0.7 % (0-4) 0.0 % (0-4) Arterial Blood Methemoglobin 0.8 % (0-2) 1.3 % (0-2) Blood Gas Hemoglobin 15.2 G/DL (12.0-16.0) 13.9 G/DL (12.0-16.0) Oxygen Delivery Device NASAL CANNULA VENTILATOR Blood Gas Liter Flow 4 L/M Nasal Screen MRSA (PCR) MRSA NOT DETECTED (NOT Blood Gas Ventilator Setting Blood Gas Inspired Oxygen 70 % M. tuberculosis Complex DNA (PCR) NOT DETECTED (NOT DETECT) Test 12/12/17 12:22 12/12/17 12:33 12/12/17 12:35 12/12/17 20:25 Phenytoin (Dilantin) Level 11.5 MCG/ML (10.0-20.0) HIV (1&2) Antibody NEGATIVE (NEGATIVE) Lactic Acid Level 4.6 mmol/L (0.4-2.0) 5.3 mmol/L (0.4-2.0) White Blood Count 11.9 TH/MM3 (4.0-11.0) 13.4 TH/MM3 (4.0-11.0) Red Blood Count 4.62 MIL/MM3 (4.50-5.90) 4.07 MIL/MM3 (4.50-5.90) Hemoglobin 13.8 GM/DL (13.0-17.0) 12.3 GM/DL (13.0-17.0) Hematocrit 42.1 % (39.0-51.0) 37.7 % (39.0-51.0) Mean Corpuscular Volume 91.1 FL (80.0-100.0) 92.5 FL (80.0-100.0) Mean Corpuscular Hemoglobin 29.9 PG (27.0-34.0) 30.1 PG (27.0-34.0) Mean Corpuscular Hemoglobin Concent 32.8 % (32.0-36.0) 32.5 % (32.0-36.0) Red Cell Distribution Width 14.8 % (11.6-17.2) 14.6 % (11.6-17.2) Platelet Count 124 TH/MM3 (150-450) 93 TH/MM3 (150-450) Mean Platelet Volume 8.6 FL (7.0-11.0) 8.6 FL (7.0-11.0) Neutrophils (%) (Auto) 94.7 % (16.0-70.0) Lymphocytes (%) (Auto) 3.2 % (9.0-44.0) Monocytes (%) (Auto) 2.0 % (0.0-8.0) Eosinophils (%) (Auto) 0.1 % (0.0-4.0) Basophils (%) (Auto) 0.0 % (0.0-2.0) Neutrophils # (Auto) 11.3 TH/MM3 (1.8-7.7) Lymphocytes # (Auto) 0.4 TH/MM3 (1.0-4.8) Monocytes # (Auto) 0.2 TH/MM3 (0-0.9) Eosinophils # (Auto) 0.0 TH/MM3 (0-0.4) Basophils # (Auto) 0.0 TH/MM3 (0-0.2) CBC Comment AUTO DIFF Differential Total Cells Counted 100 Neutrophils % (Manual) 63 % (16-70) Band Neutrophils % 27 % (0-6) Lymphocytes % 9 % (9-44) Monocytes % 1 % (0-8) Neutrophils # (Manual) 10.7 TH/MM3 (1.8-7.7) Differential Comment FINAL DIFF MANUAL Platelet Estimate LOW (NORMAL) Platelet Morphology Comment NORMAL (NORMAL) Akbar Cells 1+ (NORMAL) Blood Urea Nitrogen 43 MG/DL (7-18) 54 MG/DL (7-18) Creatinine 1.45 MG/DL (0.60-1.30) 1.88 MG/DL (0.60-1.30) Random Glucose 225 MG/DL (74-106) 193 MG/DL (74-106) Calcium Level 7.6 MG/DL (8.5-10.1) 6.9 MG/DL (8.5-10.1) Magnesium Level 3.5 MG/DL (1.5-2.5) Sodium Level 162 MEQ/L (136-145) 162 MEQ/L (136-145) Potassium Level 4.7 MEQ/L (3.5-5.1) 4.5 MEQ/L (3.5-5.1) Chloride Level 130 MEQ/L (98-107) 127 MEQ/L (98-107) Carbon Dioxide Level 21.9 MEQ/L (21.0-32.0) 19.6 MEQ/L (21.0-32.0) Anion Gap 10 MEQ/L (5-15) 15 MEQ/L (5-15) Estimat Glomerular Filtration Rate 59 ML/MIN (>89) 44 ML/MIN (>89) Activated Partial Thromboplast Time 31.1 SEC (24.3-30.1) Total Protein 5.0 GM/DL (6.4-8.2) Albumin 1.2 GM/DL (3.4-5.0) Alkaline Phosphatase 67 U/L (45-117) Aspartate Amino Transf (AST/SGOT) 42 U/L (15-37) Alanine Aminotransferase (ALT/SGPT) 8 U/L (12-78) Total Bilirubin 0.7 MG/DL (0.2-1.0) Protein Corrected Calcium 8.0 MG/DL (8.5-10.1) Troponin I 0.05 NG/ML (0.02-0.05) Test 12/12/17 21:34 12/13/17 04:55 Blood Gas Puncture Site LT RADIAL Blood Gas Patient Temperature 98.6 Blood Gas HCO3 16 mmol/L (22-26) Blood Gas Base Excess -9.3 mmol/L (-2-2) Blood Gas Oxygen Saturation 93 % (90-100) Arterial Blood pH 7.31 (7.380-7.420) Arterial Blood Partial Pressure CO2 32 mmHg (38-42) Arterial Blood Partial Pressure O2 80 mmHg (61-120) Arterial Blood Oxygen Content 16.8 Vol % (12.0-20.0) Arterial Blood Carboxyhemoglobin 0.2 % (0-4) Arterial Blood Methemoglobin 1.1 % (0-2) Blood Gas Hemoglobin 12.9 G/DL (12.0-16.0) Oxygen Delivery Device VENTILATOR Blood Gas Ventilator Setting PRVC24/500/+5/1.0 Blood Gas Inspired Oxygen 70 % White Blood Count 13.9 TH/MM3 (4.0-11.0) Red Blood Count 4.07 MIL/MM3 (4.50-5.90) Hemoglobin 12.6 GM/DL (13.0-17.0) Hematocrit 38.5 % (39.0-51.0) Mean Corpuscular Volume 94.7 FL (80.0-100.0) Mean Corpuscular Hemoglobin 30.9 PG (27.0-34.0) Mean Corpuscular Hemoglobin Concent 32.6 % (32.0-36.0) Red Cell Distribution Width 15.0 % (11.6-17.2) Platelet Count 71 TH/MM3 (150-450) Mean Platelet Volume 9.0 FL (7.0-11.0) CBC Comment AUTO DIFF Differential Total Cells Counted 100 Neutrophils % (Manual) 76 % (16-70) Band Neutrophils % 12 % (0-6) Lymphocytes % 2 % (9-44) Monocytes % 3 % (0-8) Neutrophils # (Manual) 13.2 TH/MM3 (1.8-7.7) Metamyelocytes 7 % (0-1) Nucleated Red Blood Cells 3 /100 WBC (0-0) Differential Comment FINAL DIFF MANUAL Toxic Vacuolation PRESENT (NONE SEEN) Dohle Bodies PRESENT (NONE SEEN) Platelet Estimate LOW (NORMAL) Platelet Morphology Comment NORMAL (NORMAL) Ovalocytes 1+ (NORMAL) Keratocytes OCC (NORMAL) Prothrombin Time 14.8 SEC (9.8-11.6) Prothromb Time International Ratio 1.5 RATIO Blood Urea Nitrogen 59 MG/DL (7-18) Creatinine 2.48 MG/DL (0.60-1.30) Random Glucose 186 MG/DL (74-106) Total Protein 5.1 GM/DL (6.4-8.2) Calcium Level 7.1 MG/DL (8.5-10.1) Magnesium Level 3.4 MG/DL (1.5-2.5) Sodium Level 158 MEQ/L (136-145) Potassium Level 4.8 MEQ/L (3.5-5.1) Chloride Level 125 MEQ/L (98-107) Carbon Dioxide Level 18.2 MEQ/L (21.0-32.0) Anion Gap 15 MEQ/L (5-15) Estimat Glomerular Filtration Rate 32 ML/MIN (>89) Protein Corrected Calcium 8.2 MG/DL (8.5-10.1) Troponin I 0.10 NG/ML (0.02-0.05) . Result Diagram: 12/13/17 0455 12/13/17 0455 Microbiology Microbiology Date/Time Source Procedure Growth Status 12/12/17 12:35 Blood Peripheral Aerobic Blood Culture Pending Received 12/12/17 12:35 Blood Peripheral Anaerobic Blood Culture Pending Received 12/12/17 12:22 Blood Peripheral Aerobic Blood Culture Pending Received 12/12/17 12:22 Blood Peripheral Anaerobic Blood Culture Pending Received 12/10/17 13:30 Blood Peripheral Aerobic Blood Culture - Preliminary Gram Negative Ten Resulted 12/10/17 13:30 Anaerobic Blood Culture - Preliminary Gram Negative Ten Resulted 12/10/17 13:20 Blood Peripheral Aerobic Blood Culture - Preliminary Gram Negative Ten Resulted 12/10/17 13:20 Anaerobic Blood Culture - Preliminary Gram Negative Ten Resulted 12/12/17 11:15 Sputum Endotracheal Fungal Smear - Final NO FUNGAL ELEMENTS SEEN. Resulted 12/12/17 11:15 Sputum Endotracheal Fungal Culture Pending Resulted 12/12/17 11:15 Sputum Endotracheal Acid Fast Stain Pending Received 12/12/17 11:15 Sputum Endotracheal Mycobacterial Culture Pending Received 12/12/17 11:15 Sputum Endotracheal Gram Stain - Final Resulted 12/12/17 11:15 Sputum Endotracheal Sputum Culture Pending Resulted 12/10/17 23:00 Urine Clean Catch Legionella Antigen - Final PRESUMPTIVE NEGATIVE FOR LEGIONELLA P... Complete . Imaging Last 72 hours Impressions Chest X-Ray 12/12/17 0000 Signed Impressions: Service Date/Time: Tuesday, December 12, 2017 19:49 - CONCLUSION: 1. Inferiorly placed right-sided chest tube with tip likely in the fissure. Improved right sided subpulmonic pneumothorax. 2. Remainder of the exam is unchanged. Arpan Lauren MD Chest X-Ray 12/12/17 0000 Signed Impressions: Service Date/Time: Tuesday, December 12, 2017 18:54 - CONCLUSION: 1. Small 1.3 cm right subpulmonic pneumothorax. 2. Right IJ central line with tip in the cavoatrial junction. 3. NGT in the stomach. 4. Remainder the exam is unchanged Arpan Lauren MD Chest X-Ray 12/12/17 0000 Signed Impressions: Service Date/Time: Tuesday, December 12, 2017 10:48 - CONCLUSION: 1. ET tube tip 2 cm above the eric. 2. The side port of the gastric tube projects in the distal esophagus and the gastric tube needs to be advanced at least 8 cm. Markos Mcguire MD Chest CT 12/11/17 0000 Signed Impressions: Service Date/Time: Monday, December 11, 2017 19:59 - CONCLUSION: Cavitating infiltrates bilaterally. Large adrenal mass seen in the upper abdomen Raza Quevedo MD Chest X-Ray 12/10/17 1500 Signed Impressions: Service Date/Time: Sunday, December 10, 2017 15:43 - CONCLUSION: Bilateral perihilar infiltrates and a wedge-shaped density in the right lung apex. Large bleb right upper lobe. Amilcar Delgado MD . Procedures 12/12/17: Intubation 12/12/17: Right IJ CVL placement 12/12/17: Right-sided chest tube placement 12/12/17: NGT placement . Patient/Family Conference Present at Family Conference: Spoke briefly with patient's sister (Danika) via telephone. Apparently the patient has 3 siblings who are still living. Tentative plan to meet with patient's sister later this afternoon when she arrives to the hospital. . Family Conference Location: Telephone Issues Discussed: * Palliative care role, purpose, approach * Additional psychosocial history * Patient/family understanding of the current medical problems * Patient/family understanding of prognosis * Questions answered to the best of my ability * Palliative care contact information provided . Assessment and Plan Disease Oriented Problem List: (1) Hypotension (2) Hyperlipidemia (3) Hypertension (4) COPD (chronic obstructive pulmonary disease) (5) Acute respiratory failure (6) Septic shock (7) Hepatitis C (8) Pneumonia Symptom Scale: Pertinent Non-Medical Issues Psychosocial: Patient has not worked in many years. He has a history of heavy EtOH consumption, 10-12 beers daily, but states he quit drinking when he was hospitalized in July,. Patient has been living at a senior living in [facility] since October,. Before that, he lived at a assisted in [place] Spiritual: Hoahaoism tyrell Legal: TBD Ethical issues impacting care: No known ethical issues impacting care. . Important Contacts Will Rebecca, brother: [phone] or [phone] Danika Fernandez, sister: [phone] . Prognosis Patient is in septic shock with systolic pressures in the 70s on pressor support. He is intubated on mechanical ventilation with oxygen saturations are in the high 80s on 100% FiO2. Patient is critically ill; his prognosis is poor. . Code Status: No Code Plan * NO CODE * Per [place] statutes, in the absence of written advanced directives healthcare proxy decision making may follow to any of the following individuals , in the following order of priority, if no individual and a prior class is reasonably available, willing are competent to act: = A judicially appointed guardian or guardian advocate = Spouse = An adult child of the patient or, if the patient has more than 1 adult child, a majority of the adult children who are reasonably available for consultation = A parent of the patient = The adult sibling of the patient or, if the patient has more than one sibling, a majority of the adult siblings who are reasonably available for consultation = An adult relative the patient who has exhibited special care and for concern for the patient and to has maintained regular contact with the patient. = A close friend of the patient * Goals: Pending further conversations with family after identifying the legal decision maker. It appears the patient is not , but he may have adult children living in [place]. * Palliative care contact information provided to the patient's sister, Danika * Discussed patient with nurse, Nicole. * Palliative care will continue to follow this patient throughout his/her hospitalization to build rapport, assist with symptom management and goal clarification. * ADDENDUM: Patient 12/13/2017 at 1145 . Thank you for the opportunity to participate in the care of Mr. Fernandez. . Attestation To help prompt me to consider important information that might be impacting today's encounter and assessment, information from prior notes written by myself or my colleagues may have been "brought forward" into today's note. My signature on this note, however, is an attestation that I personally performed the exam, history, and/or decision-making noted today, and, unless otherwise indicated, the interactions with patient, family, and staff as well as the review of records all occurred today. I also attest that the listed assessment and stated plan reflect my best clinical judgment today based on the combination of historical information, prior notes, and today's exam/ interactions. When time spent is documented, it refers only to time spent today by the signer, or if indicated, combined time spent today by collaborating physician/nurse practitioner. . Virginia Valerio Dec 13, 2017 11:16
--- NOTE | 2017-12-13 12:06 | DEATH SUM ---
Summary Demographics Date Pronounced : Dec 13, 2017 Time Of : 11:45 Pronounced By: Merlin Jiménez MD Preliminary Cause of : Cardiac arrest Merlin Jiménez MD Dec 13, 2017 12:06
--- NOTE | 2017-12-13 12:13 | HHI.DS ---
Summary Note Date of : Dec 13, 2017 Time Of : 11:45 Admission Date Dec 10, 2017 at 17:14 Admitting Diagnosis pneumonia, failed outpatient treatment, COPD Diagnosis at Time of : (1) Pneumonia ICD Code: J18.9 - Pneumonia, unspecified organism (2) Septic shock ICD Code: A41.9 - Sepsis, unspecified organism; R65.21 - Severe sepsis with septic shock (3) Acute respiratory failure ICD Code: J96.00 - Acute respiratory failure, unspecified whether with hypoxia or hypercapnia (4) COPD (chronic obstructive pulmonary disease) ICD Code: J44.9 - Chronic obstructive pulmonary disease, unspecified (5) Hepatitis C ICD Code: B19.20 - Unspecified viral hepatitis C without hepatic coma (6) Alcohol abuse ICD Code: F10.10 - Alcohol abuse, uncomplicated (7) Respiratory failure, acute ICD Code: J96.00 - Acute respiratory failure, unspecified whether with hypoxia or hypercapnia (8) Acute encephalopathy ICD Code: G93.40 - Encephalopathy, unspecified Procedures Intubation Brief History This is a 67-year-old male with a past medical history significant for COPD with ongoing tobaccoism, history of alcohol abuse with acute respiratory failure requiring intubation, history of alcohol withdrawal seizures, hypertension and dyslipidemia who presents to [facility] ED with complaints of progressive weakness, left-sided facial droop, difficulty swallowing and generalized malaise. Patient is a poor historian as well as has significant slurred speech. Due to patient's difficulty speaking, his caregivers are at the bedside and assist in providing much of the history. Apparently, patient developed complaints of fevers, generalized malaise and not feeling well. He was seen at urgent care and diagnosed with pneumonia given a prescription for doxycycline. Despite being compliant with medication patient continued to decline with progressive weakness. He was sent by [facility] to our ED on the for altered mental status and had a CT of the head done which was negative for any acute intracranial abnormality and was discharged the same day. Patient was then seen by his primary care physician Dr. King and was given a steroid injection. Patient developed left-sided facial droop on Monday and began having difficulty swallowing with increased slurred speech over the course of the past 3 days. Patient denies any cough during this time. He denies any hemoptysis. Denies any shortness of breath or chest pain. He denies any vision changes, dizziness, lightheadedness, nausea, vomiting, focal weakness, abdominal pain, dysuria, hematuria, diarrhea or constipation. He does endorse recent weight loss. He has not taken any medication for the past 3 days due to difficulty swallowing. CBC/BMP: 12/13/17 0455 12/13/17 0455 Significant Findings Laboratory Tests Test 12/10/17 13:30 12/10/17 15:10 12/11/17 10:06 12/11/17 13:45 White Blood Count 20.8 TH/MM3 (4.0-11.0) 20.4 TH/MM3 (4.0-11.0) Neutrophils (%) (Auto) 94.4 % (16.0-70.0) 94.0 % (16.0-70.0) Lymphocytes (%) (Auto) 3.0 % (9.0-44.0) 3.2 % (9.0-44.0) Neutrophils # (Auto) 19.6 TH/MM3 (1.8-7.7) 19.2 TH/MM3 (1.8-7.7) Lymphocytes # (Auto) 0.6 TH/MM3 (1.0-4.8) 0.7 TH/MM3 (1.0-4.8) Neutrophils % (Manual) 79 % (16-70) Band Neutrophils % 15 % (0-6) Lymphocytes % 5 % (9-44) Neutrophils # (Manual) 19.6 TH/MM3 (1.8-7.7) Blood Urea Nitrogen 40 MG/DL (7-18) 42 MG/DL (7-18) Random Glucose 109 MG/DL (74-106) 173 MG/DL (74-106) Albumin 1.8 GM/DL (3.4-5.0) 1.6 GM/DL (3.4-5.0) Aspartate Amino Transf (AST/SGOT) 53 U/L (15-37) 45 U/L (15-37) Total Bilirubin 1.1 MG/DL (0.2-1.0) Sodium Level 151 MEQ/L (136-145) 157 MEQ/L (136-145) Chloride Level 115 MEQ/L (98-107) 123 MEQ/L (98-107) Estimat Glomerular Filtration Rate 75 ML/MIN (>89) 85 ML/MIN (>89) Phenytoin (Dilantin) Level 1.6 MCG/ML (10.0-20.0) Arterial Blood pH 7.47 (7.380-7.420) Arterial Blood Partial Pressure CO2 30 mmHg (38-42) Arterial Blood Oxygen Content 20.4 Vol % (12.0-20.0) Calcium Level 8.2 MG/DL (8.5-10.1) Potassium Level 2.9 MEQ/L (3.5-5.1) Lactic Acid Level 2.5 mmol/L (0.4-2.0) 2.7 mmol/L (0.4-2.0) Magnesium Level 3.9 MG/DL (1.5-2.5) Test 12/12/17 05:23 12/12/17 08:26 12/12/17 09:10 12/12/17 11:15 Blood Gas HCO3 19 mmol/L (22-26) 21 mmol/L (22-26) Blood Gas Base Excess -4.6 mmol/L (-2-2) -6.0 mmol/L (-2-2) Blood Gas Oxygen Saturation 89 % (90-100) 89 % (90-100) Arterial Blood pH 7.43 (7.380-7.420) 7.21 (7.380-7.420) Arterial Blood Partial Pressure CO2 29 mmHg (38-42) 53 mmHg (38-42) Test 12/12/17 12:22 12/12/17 12:33 12/12/17 12:35 12/12/17 20:25 Lactic Acid Level 4.6 mmol/L (0.4-2.0) 5.3 mmol/L (0.4-2.0) White Blood Count 11.9 TH/MM3 (4.0-11.0) 13.4 TH/MM3 (4.0-11.0) Platelet Count 124 TH/MM3 (150-450) 93 TH/MM3 (150-450) Neutrophils (%) (Auto) 94.7 % (16.0-70.0) Lymphocytes (%) (Auto) 3.2 % (9.0-44.0) Neutrophils # (Auto) 11.3 TH/MM3 (1.8-7.7) Lymphocytes # (Auto) 0.4 TH/MM3 (1.0-4.8) Band Neutrophils % 27 % (0-6) Neutrophils # (Manual) 10.7 TH/MM3 (1.8-7.7) Platelet Estimate LOW (NORMAL) Murdock Cells 1+ (NORMAL) Blood Urea Nitrogen 43 MG/DL (7-18) 54 MG/DL (7-18) Creatinine 1.45 MG/DL (0.60-1.30) 1.88 MG/DL (0.60-1.30) Random Glucose 225 MG/DL (74-106) 193 MG/DL (74-106) Calcium Level 7.6 MG/DL (8.5-10.1) 6.9 MG/DL (8.5-10.1) Magnesium Level 3.5 MG/DL (1.5-2.5) Sodium Level 162 MEQ/L (136-145) 162 MEQ/L (136-145) Chloride Level 130 MEQ/L (98-107) 127 MEQ/L (98-107) Estimat Glomerular Filtration Rate 59 ML/MIN (>89) 44 ML/MIN (>89) Red Blood Count 4.07 MIL/MM3 (4.50-5.90) Hemoglobin 12.3 GM/DL (13.0-17.0) Hematocrit 37.7 % (39.0-51.0) Activated Partial Thromboplast Time 31.1 SEC (24.3-30.1) Total Protein 5.0 GM/DL (6.4-8.2) Albumin 1.2 GM/DL (3.4-5.0) Aspartate Amino Transf (AST/SGOT) 42 U/L (15-37) Alanine Aminotransferase (ALT/SGPT) 8 U/L (12-78) Carbon Dioxide Level 19.6 MEQ/L (21.0-32.0) Protein Corrected Calcium 8.0 MG/DL (8.5-10.1) Test 12/12/17 21:34 12/13/17 04:55 12/13/17 11:37 Blood Gas HCO3 16 mmol/L (22-26) Blood Gas Base Excess -9.3 mmol/L (-2-2) Arterial Blood pH 7.31 (7.380-7.420) Arterial Blood Partial Pressure CO2 32 mmHg (38-42) White Blood Count 13.9 TH/MM3 (4.0-11.0) Red Blood Count 4.07 MIL/MM3 (4.50-5.90) Hemoglobin 12.6 GM/DL (13.0-17.0) Hematocrit 38.5 % (39.0-51.0) Platelet Count 71 TH/MM3 (150-450) Neutrophils % (Manual) 76 % (16-70) Band Neutrophils % 12 % (0-6) Lymphocytes % 2 % (9-44) Neutrophils # (Manual) 13.2 TH/MM3 (1.8-7.7) Metamyelocytes 7 % (0-1) Nucleated Red Blood Cells 3 /100 WBC (0-0) Toxic Vacuolation PRESENT (NONE SEEN) Dohle Bodies PRESENT (NONE SEEN) Platelet Estimate LOW (NORMAL) Ovalocytes 1+ (NORMAL) Prothrombin Time 14.8 SEC (9.8-11.6) Blood Urea Nitrogen 59 MG/DL (7-18) Creatinine 2.48 MG/DL (0.60-1.30) Random Glucose 186 MG/DL (74-106) Total Protein 5.1 GM/DL (6.4-8.2) Calcium Level 7.1 MG/DL (8.5-10.1) Magnesium Level 3.4 MG/DL (1.5-2.5) Sodium Level 158 MEQ/L (136-145) Chloride Level 125 MEQ/L (98-107) Carbon Dioxide Level 18.2 MEQ/L (21.0-32.0) Estimat Glomerular Filtration Rate 32 ML/MIN (>89) Protein Corrected Calcium 8.2 MG/DL (8.5-10.1) Troponin I 0.10 NG/ML (0.02-0.05) Hospital Course 12/12: This is a 67-year-old male with a past medical history significant for COPD with ongoing tobaccoism, history of alcohol abuse with acute respiratory failure requiring intubation, history of alcohol withdrawal seizures, hypertension and dyslipidemia who presents to [facility] ED with complaints of progressive weakness, left-sided facial droop, difficulty swallowing and generalized malaise. Patient is a poor historian as well as has significant slurred speech. Due to patient's difficulty speaking, his caregivers are at the bedside and assist in providing much of the history. Apparently, patient developed complaints of fevers, generalized malaise and not feeling well. He was seen at urgent care and diagnosed with pneumonia given a prescription for doxycycline. Despite being compliant with medication patient continued to decline with progressive weakness. He was sent by [facility] to our ED on the for altered mental status and had a CT of the head done which was negative for any acute intracranial abnormality and was discharged the same day. Patient was then seen by his primary care physician Dr. King and was given a steroid injection. Patient developed left-sided facial droop on Monday and began having difficulty swallowing with increased slurred speech over the course of the past 3 days. Patient denies any cough during this time. He denies any hemoptysis. Denies any shortness of breath or chest pain. On admission he complained of weight loss however denied any vision changes, dizziness, lightheadedness, nausea, vomiting, focal weakness, abdominal pain, dysuria, hematuria, diarrhea or constipation. Patient was admitted by hospitalist service. He was transferred to ICU for respiratory distress yesterday and this morning would not keep his BiPAP on with worsening tachypnea and dyspnea. His blood cultures from admission grew out gram-negative rods. CT chest done last night revealed bilateral cavitary lesions with infiltrates as well as Lytic lesion involving right first rib as well as L3 and a large left adrenal mass. Due to worsening respiratory distress critical care was consulted by Dr. Kirk. I evaluated the patient on being notified of the consult. At that time he was extremely tachypneic breathing in the 40s despite BiPAP and was encephalopathic however was arousable and responsive to commands. Patient was emergently intubated and placed on mechanical ventilation for worsening respiratory failure. History was obtained by reviewing records and discussion with Dr. Lawrence and nursing staff. 12/13: Patient isn't profound septic shock. Received multiple fluid boluses yesterday and was started on pressors. Central line placed yesterday. He had a small basal pneumothorax on the right for which he had a chest tube placed last night. Remains orally intubated on mechanical ventilation on high-dose on Levophed with systolic blood pressure barely in the 70s. FiO2 requirement has increased to 100% and he is not maintaining O2 sats. Bronchoscopy canceled this morning by pulmonary in view of significant hemodynamic instability and poor oxygenation. Assessment and Plan Gram-negative bacteremia Septic shock COPD Bilateral pneumonia Bilateral cavitary lesions Acute respiratory failure on mechanical ventilation Right pneumothorax status post chest tube placement Possible malignancy Left adrenal mass Lytic lesion at L3 and right first rib Plan: Neuro: Sedation with fentanyl, propofol held for hypotension., daily sedation vacation, follow neuro status. Cardiovascular: Fluid boluses, IV hydration. Levophed for pressor support, added low-dose vasopressin. Stress dose steroids. Pulmonary: Intubated and placed on mechanical ventilation. Being followed by pulmonary. Bronchoscopy cancer due to significant hemodynamic instability and worsening respiratory status. Vent bundle, bronchodilators as needed. GI/liver: Nothing by mouth for now. Renal/: IV hydration. Hypernatremia noted. Continue Normosol for IV hydration. Multiple fluid boluses needed for hypotension. Free water via OG tube. Strict intake output, monitor and replete electro lites, follow BUN creatinine. ID: Follow-up cultures. Blood cultures with gram-negative rods. Antibiotics per ID. Heme: Follow CBC and coags Endocrine: SSI for glycemic control if needed. On stress dose steroids. Prophylaxis: Protonic/SCDs/subcutaneous Lovenox Patient in refractory shock with worsening respiratory failure and impending cardiac arrest. I discussed current clinical status with patient's brother by phone who is his decision maker and he has elected to make him DNR status as his prognosis is extremely poor. He wishes to focus on comfort. I did advise him that cardiac arrest was imminent as we are not able to maintain his blood pressure and oxygen levels optimally. Condition critical Patient subsequently went into asystole cardiac arrest. Pupils midposition and fixed and nonreactive to light, no response to pain. Blood. Heart sounds absent. No spontaneous respirations on disconnecting mechanical ventilation. Patient was pronounced on 12/13/2017 at 1145 hrs. Merlin Jiménez MD Dec 13, 2017 12:13
--- NOTE | 2017-12-13 13:22 | ECHRPT ---
Indication: CVA/TIA CONCLUSIONS Normal left ventricular size. Wall thickness is normal. The left ventricular systolic function is low normal with an estimated ejection fraction in the rang e of 50- 55%. The right ventricle is mildly dilated. The right ventricular systoilc function is mildly decreased. The right atrial size is mildly dilated. Calcification of the anterior mitral valve leaflet and attatched chordae Aortic valve sclerosis is present. There is trace tricuspid valve regurgitation. There is less than 50% respiratory change in dimension of the inferior vena cava (abnormal). A right sided pleural effusion is present. BP: 122 / 71 HR: 104 Rhythm: MEASUREMENTS (Male / Female) Normal Values Technical Quality: 2D ECHO LV Diastolic Diameter PLAX 4.2 cm 4.2 - 5.9 / 3.9 - 5.3 cm LV Systolic Diameter PLAX 3.2 cm IVS Diastolic Thickness 0.9 cm 0.6 - 1.0 / 0.6 - 0.9 cm LVPW Diastolic Thickness 0.9 cm 0.6 - 1.0 / 0.6 - 0.9 cm LV Relative Wall Thickness 0.4 RV Internal Dim ED PLAX 1.9 cm LVOT Diameter 1.8 cm Aortic Root Diameter 3.4 cm LA Systolic Diameter LX 2.5 cm 3.0 - 4.0 / 2.7 - 3.8 cm M-MODE AV Cusp Separation MM 1.9 cm DOPPLER AV Peak Velocity 108.2 cm/s AV Peak Gradient 4.7 mmHg AV Mean Gradient 2.5 mmHg AV Velocity Time Integral 14.9 cm LVOT Peak Velocity 78.5 cm/s LVOT Peak Gradient 2.5 mmHg LVOT Velocity Time Integral 10.7 cm AV Area Cont Eq vti 1.8 cm AV Area Cont Eq pk 1.8 cm Mitral E Point Velocity 69.6 cm/s LV E' Lateral Velocity 9.2 cm/s Mitral E to LV E' Lateral Ratio 7.6 LV E' Septal Velocity 7.6 cm/s Mitral E to LV E' Septal Ratio 9.2 TR Peak Velocity 163.0 cm/s TR Peak Gradient 10.6 mmHg Right Atrial Pressure 10.0 mmHg Pulmonary Artery Systolic Pressu 20.6 mmHg Right Ventricular Systolic Press 20.6 mmHg PV Peak Velocity 52.2 cm/s PV Peak Gradient 1.1 mmHg FINDINGS LEFT VENTRICLE Normal left ventricular size. Wall thickness is normal. The left ventricular systolic function is low normal with an estimated ejection fraction in the rang e of 50- 55%. RIGHT VENTRICLE The right ventricle is mildly dilated. The right ventricular systoilc function is mildly decreased. LEFT ATRIUM The left atrial size is normal. RIGHT ATRIUM The right atrial size is mildly dilated. ATRIAL SEPTUM No atrial level shunt is demonstrated by color flow Doppler interrogation. AORTA The aortic root and proximal ascending aorta are normal in size on limited imaging. MITRAL VALVE Calcification of the anterior mitral valve leaflet. AORTIC VALVE Aortic valve sclerosis is present. TRICUSPID VALVE There is trace tricuspid valve regurgitation. PULMONARY VALVE No pulmonary valve regurgitation or stenosis. VESSELS The inferior vena cava is normal in size. There is less than 50% respiratory change in dimension of the inferior vena cava (abnormal). PERICARDIUM A right sided pleural effusion is present. Kevin Kent MD, FACC, [facility] [place] (Electronically Signed) Final Date:13 December 2017 13:21
[2017-12-13] MEDS ORDERED: AZTREONAM INJ 1,000 MG in SODIUM CHLORIDE 0.9% INJ 100 ML IV SCH (17:00)
[2017-12-15 10:13] LABS: MITOGEN MINUS NIL RESULT 0.01 IU/mL; NIL RESULT 0.02 IU/mL; QUANTIFERON TB GOLD + RESULT Indeterminate (Negative)
== END 2017-12-13 11:45 | disposition expired | DRG 871 ==
LOC: NEPE 14:36 → NEDA 17:14 → N05B 20:20 → HIMN 12-12 06:35
PROVIDERS: ADMIT Internal Medicine Critical Care Medicine; ATTEND Internal Medicine Critical Care Medicine
PROC: 02HV33Z Insertion of Infusion Device into Superior Vena Cava, Percutaneous Approach (ICD-10-PCS; principal; 2017-12-12)
PROC: 5A1935Z Respiratory Ventilation, Less than 24 Consecutive Hours (ICD-10-PCS; 2017-12-12)
PROC: 0W9930Z Drainage of Right Pleural Cavity with Drainage Device, Percutaneous Approach (ICD-10-PCS; 2017-12-12)
PROC: 0BH17EZ Insertion of Endotracheal Airway into Trachea, Via Natural or Artificial Opening (ICD-10-PCS; 2017-12-12)
PROC: 5A09357 Assistance with Respiratory Ventilation, Less than 24 Consecutive Hours, Continuous Positive Airway Pressure (ICD-10-PCS; 2017-12-12)
DX: A41.53 Sepsis due to Serratia (principal); R65.21 Severe sepsis with septic shock; J96.00 Acute respiratory failure, unspecified whether with hypoxia or hypercapnia; G93.40 Encephalopathy, unspecified; N17.9 Acute kidney failure, unspecified; J18.9 Pneumonia, unspecified organism; E86.0 Dehydration; J44.0 Chronic obstructive pulmonary disease with (acute) lower respiratory infection; E87.0 Hyperosmolality and hypernatremia; R64 Cachexia; B37.0 Candidal stomatitis; Z68.1 Body mass index [BMI] 19.9 or less, adult; J95.811 Postprocedural pneumothorax; R13.10 Dysphagia, unspecified; R29.810 Facial weakness; I10 Essential (primary) hypertension; E78.5 Hyperlipidemia, unspecified; F17.290 Nicotine dependence, other tobacco product, uncomplicated; R47.81 Slurred speech; R00.0 Tachycardia, unspecified; I25.10 Atherosclerotic heart disease of native coronary artery without angina pectoris; B19.20 Unspecified viral hepatitis C without hepatic coma; R47.02 Dysphasia; R47.1 Dysarthria and anarthria; I65.21 Occlusion and stenosis of right carotid artery; J98.4 Other disorders of lung; Z66 Do not resuscitate; Z51.5 Encounter for palliative care; E27.9 Disorder of adrenal gland, unspecified; Y84.8 Other medical procedures as the cause of abnormal reaction of the patient, or of later complication, without mention of misadventure at the time of the procedure; I46.9 Cardiac arrest, cause unspecified; E87.6 Hypokalemia; I73.9 Peripheral vascular disease, unspecified; Z86.73 Personal history of transient ischemic attack (TIA), and cerebral infarction without residual deficits; Z88.0 Allergy status to penicillin
CPT/HCPCS: 31500; 32551; 36556; 36600; 70491; 70551; 71045; 71046; 71250; 76937; 80048; 80053; 80185; 80202; 82805; 83605; 83735; 84155; 84484; 85007; 85025; 85027; 85610; 85730; 86480; 86703; 86738; 87015; 87040; 87070; 87077; 87102; 87116; 87186; 87205; 87206; 87449; 87556; 87641; 87798; 93005; 93306; 93880; 94002; 94003; 94640; 94664; 94667; 94668; 99285; C9113; J1165; J1720; J1815; J1956; J2270; J3010; J3370; J3480; J7030; J7040; J7050; J7120; J7613; Q9967